=== PATIENT | male | born 1955 | race Caucasian/White ===

== ENCOUNTER 2017-10-04 07:07 | Inpatient (IN) | payer OTHER, MEDICARE ==
[2017-10-04 07:22] VITALS: BMI 23.7
--- NOTE | 2017-10-04 07:47 | C.PDOC ---
History Of Present Illness 62 y/o male with History of Right kidney transplant in [address] sent [address] ED [address] Dr[address] Zapata for evaluation of elevated creatinine. Patient had blood work on 10/01 and the creatinine tripled from 2.1 to 6.2, as per . As per , the patient has been very fatigue for 1 week and sleeping most of day and had x1 episode of vomiting last week. Patient has slightly decreased urine output, and patient denies abdominal pain or any other complaints at this time. PMH HTN, DM, CAD, CKD with Right renal transplant 2008. [place] is Dr. Zapata. Time Seen by Provider: 10/04/17 07:39 Chief Complaint (Nursing): Abnormal Labs History Per: Patient, Family History/Exam Limitations: no limitations Onset/Duration Of Symptoms: Days Current Symptoms Are (Timing): Still Present Past Medical History Reviewed: Historical Data, Nursing Documentation, Vital Signs Vital Signs: Last Vital Signs Temp 97.9 F 10/04/17 07:22 Pulse 71 10/04/17 07:53 Resp 20 10/04/17 07:53 BP 157/75 H 10/04/17 07:53 Pulse Ox 97 10/04/17 09:52 - Medical History PMH: CHF, Diabetes, Deep Vein Thrombosis (remote history of DVT to RLE and aterial clot to LLE), HTN, Chronic Kidney Disease Surgical History: Coronary Stent (2007) - [facility] Procedures ANGIOPLASTY OF OTHER NON-CORONARY VESSEL(S) (05/30/15) ATHERECTOMY OF OTHER NON-CORONARY VESSEL(S) (05/30/15) CONTRAST ARTERIOGRAM-LEG (06/17/14) DILATION OF L FEM ART WITH INTRALUM DEV, PERC APPROACH (03/10/16) DILATION OF R FEM ART WITH INTRALUM DEV, PERC APPROACH (05/21/16) EXTIRPATION OF MATTER FROM L EXT CAROTID, OPEN APPROACH (09/26/16) EXTIRPATION OF MATTER FROM L INT CAROTID, OPEN APPROACH (09/26/16) EXTIRPATION OF MATTER FROM L PERONEAL ART, PERC APPROACH (03/10/16) EXTIRPATION OF MATTER FROM L POPL ART, PERC APPROACH (03/10/16) EXTIRPATION OF MATTER FROM R FEM ART, PERC APPROACH (05/21/16) INSEJ [id number] PERIPHERAL NON-CORONARY VES STENT(S) (06/17/14) INSERTION OF ONE VASCULAR STENT (06/17/14) OTHER ENDOVASCULAR PROCEDURES ON OTHER VESSELS (06/17/14) PROCEDURE ON SINGLE VESSEL (05/30/15) Family History: States: No Known Family Hx - Social History Hx Tobacco Use: Yes Hx Alcohol Use: No Hx Substance Use: No - Immunization History Hx Tetanus Toxoid Vaccination: No Hx Influenza Vaccination: Yes Hx Pneumococcal Vaccination: Yes Review Of Systems Constitutional: Negative for: Fever, Chills Gastrointestinal: Positive for: Vomiting. Negative for: Abdominal Pain Skin: Negative for: Rash Neurological: Negative for: Weakness, Numbness Physical Exam - Physical Exam Appears: Chronically Ill Skin: Warm, Dry, No Rash, Other (surgical scar left neck) Head: Atraumatic, Normacephalic Eye(s): bilateral: Normal Inspection Oral Mucosa: Moist Neck: Supple Cardiovascular: Rhythm Regular Respiratory: Normal Breath Sounds, No Accessory Muscle Use, No Rales, No Rhonchi , No Wheezing Gastrointestinal/Abdominal: Soft, No Tenderness, No Guarding, No Rebound Extremity: Pedal Edema (Trace), Capillary Refill (<2 seconds), No Deformity Extremity: Bilateral: Normal ROM Neurological/Psych: Oriented x3 ED Course And Treatment - Laboratory Results Result Diagrams: 10/04/17 07:54 10/04/17 07:54 O2 Sat by Pulse Oximetry: 97 (RA) Pulse Ox Interpretation: Normal Medical Decision Making Medical Decision Making: Impression: Plan: Blood work, UA ordered Progress: [address]ata [phone] Dr Gonzalez calls ED, covering for Benny. Requests Transplant Kidney and bladder ultrasound. Will do consult Page Dr Warner Patient PCP does not admit here. They request Dr Warner [phone] Dr Warner calls back, he is out of town Dudley Chaudhary, of patient and she is now asking for Dr Justice to admit. [phone] Justice who accepts admission Disposition - Disposition Disposition: HOSPITALIZED Disposition Time: 09:52 Condition: FAIR - POA Present On Arrival: None - Clinical Impression Clinical Impression: Chronic renal disease, Creatinine elevation, H/O kidney transplant - PA / PROOF TECHNICIAN HELPER / Resident Statement MD/DO has reviewed & agrees with the documentation as recorded. - Scribe Statement The provider has reviewed the documentation as recorded by the Scribe Caden Patel All medical record entries made by the Scribe were at my direction and personally dictated by me. I have reviewed the chart and agree that the record accurately reflects my personal performance of the history, physical exam, medical decision making, and the department course for this patient. I have also personally directed, reviewed, and agree with the discharge instructions and disposition. Decision To Admit - Pt Status Changed To: Hospital Disposition Of: Observation - . Bed Request Type: Regular Admitting Physician: Jimenez Justice Patient Diagnosis: Chronic renal disease, Creatinine elevation
[2017-10-04 08:04] LABS: BASO # 0.1 K/uL (0.0-0.2); BASO % 1.3 % (0.0-2.0); EOS # 0.3 K/uL (0.0-0.7); EOS % 2.8 % (0.0-4.0); HEMOGLOBIN 13.3 g/dL (12.0-18.0); LYMPH # 1.5 K/uL (1.0-4.3); LYMPH % 14.8 % (20.0-40.0); MEAN CELL VOLUME 87.4 fL (80.0-94.0); MEAN CORPUSCULAR HEMOGLOBIN 30.2 pg (27.0-31.0); MEAN CORPUSCULAR HGB CONC 34.6 g/dL (33.0-37.0); MEAN PLATELET VOLUME 10.9 fL (7.2-11.7); MONO % 10.2 % (0.0-10.0); NEUT # 7.3 K/uL (1.8-7.0); NEUT % 70.9 % (50.0-75.0); NRBC % 0.1 % (0.0-2.0); RBC 4.4 Mil/uL (4.40-5.90); RED CELL DISTRIBUTION WIDTH 15.4 % (11.5-14.5); WHITE BLOOD COUNT 10.2 K/uL (4.8-10.8)
[2017-10-04 08:09] LABS: PROTHROMBIN TIME 11.8 SECONDS (9.7-12.2)
[2017-10-04 08:24] LABS: ALB/GLOB RATIO 0.8 (1.0-2.1); ALBUMIN 3.3 g/dL (3.5-5.0); CALCIUM 8.4 mg/dl (8.6-10.4)
[2017-10-04 09:11] LABS: URINE BACTERIA RARE (<OCC); URINE BILIRUBIN NEGATIVE (NEGATIVE); URINE BLOOD NEGATIVE (NEGATIVE); URINE CLARITY Clear (Clear); URINE COLOR Yellow (YELLOW); URINE GLUCOSE (UA) 3+ mg/dL (Normal); URINE LEUKOCYTE ESTERASE NEG Leu/uL (Negative); URINE NITRATE NEGATIVE (NEGATIVE); URINE PROTEIN 3+ mg/dL (NEGATIVE); URINE UROBILINOGEN NORMAL mg/dL (0.2-1.0)
--- NOTE | 2017-10-04 11:26 | US ---
PROCEDURE: Ultrasound of the Kidneys HISTORY: abnormal labs COMPARISON: None available. TECHNIQUE: Sonogram of the kidneys. FINDINGS: There is a right lower quadrant renal transplant. The transplant kidney measures 11.7 cm. There is mild diffuse cortical echogenicity. No hydronephrosis or nephrolithiasis. RIGHT KIDNEY: Measures: 7.2 cm. Small kidney with chronic parenchymal disease. LEFT KIDNEY: Measures: 7.3 cm. Small kidney with chronic parenchymal disease. OTHER FINDINGS: The urinary bladder is partially distended and grossly normal in appearance. The prevoid urinary volume is 166. 6 mL. IMPRESSION: Mild diffuse cortical echogenicity in the renal transplant which may represent underlying parenchymal disease. No hydronephrosis or nephrolithiasis. Clinical correlation and follow-up is advised.
--- NOTE | 2017-10-04 12:59 | CP.PCM.CON ---
History of Present Illness - History of Present Illness History of Present Illness: 62 yo male w/ hx of esrd never on hd, living related renal transplant 2009 from sister, no rejection episodes, baseline creatinine close to 3.0 mg d/l based on office chart. Was called into the hospital for elevated creatinine 6.0 mg/dl on routine labs. Pt c/o neuropathic pain in both legs, worse recently but otherwise denies any dysuria hematuria change in uop, leg swelling. was ill recently with "flu like symptoms". Compliant w/ meds. On myfortic 360 mg bid and prograf 4 mg bid PMHx/PSx esrd as above hypertension post tx DM pvd s/p b/l LE angioplasty carotid endarterectomy Neuropathy Allergies: None family hx: no kidney dz aunt w/ dm soc hx current smoker, reports quit etoh 8 months ago. denies drug use. disabled ros: as above no fevers chills sob cough chest pain dizziness palpitations rash [place] vomiting diarrhea weight loss change in appetite Review of Systems - Review of Systems All systems: reviewed and no additional remarkable complaints except (as per hpi ) Past Patient History - Infectious Disease Hx of Infectious Diseases: None - Past Medical History & Family History Past Medical History?: Yes - Past Social History Smoking Status: Former Smoker - CARDIAC Hx Congestive Heart Failure: Yes Hx Hypertension: Yes - PULMONARY Hx Respiratory Disorders: No Other/Comment: FORMER SMOKER - NEUROLOGICAL Hx Neurological Disorder: No - HEENT Hx HEENT Problems: Yes Hx Cataracts: Yes - RENAL Hx Chronic Kidney Disease: Yes - ENDOCRINE/METABOLIC Hx Endocrine Disorders: Yes Hx Diabetes Mellitus Type 2: Yes - HEMATOLOGICAL/ONCOLOGICAL Hx Blood Disorders: No - INTEGUMENTARY Hx Dermatological Problems: No - MUSCULOSKELETAL/RHEUMATOLOGICAL Hx Musculoskeletal Disorders: No Hx Falls: No - GASTROINTESTINAL Hx Gastrointestinal Disorders: Yes Hx Gastroesophageal Reflux: Yes - GENITOURINARY/GYNECOLOGICAL Hx Genitourinary Disorders: Yes (KIDNEY TRANSPLANT 2008) Other/Comment: NO HEMODIAYLIS. - PSYCHIATRIC Hx Substance Use: No - SURGICAL HISTORY Hx Coronary Stent: Yes (2007) - ANESTHESIA Hx Anesthesia: Yes Hx Anesthesia Reactions: No Hx Malignant Hyperthermia: No Meds Allergies/Adverse Reactions: Allergies Allergy/AdvReac Type Severity Reaction Status Date / Time No Known Allergies Allergy Verified 10/04/17 07:33 - Medications Medications: Current Medications Sodium Chloride (Sodium Chloride 0.9%) 1,000 mls @ 100 mls/hr IV .Q10H MICHAEL Mycophenolate Mofetil (Cellcept) 500 mg PO BID MICHAEL Tacrolimus (Prograf Cap) 4 mg PO Q12 MICHAEL Physical Exam - Constitutional Appears: Non-toxic, No Acute Distress, Cachectic - Head Exam Head Exam: NORMAL INSPECTION - Eye Exam Eye Exam: Normal appearance, PERRL Pupil Exam: NORMAL ACCOMODATION - ENT Exam ENT Exam: Mucous Membranes Moist, Normal Exam - Neck Exam Neck exam: Positive for: Normal Inspection - Respiratory Exam Respiratory Exam: NORMAL BREATHING PATTERN - Cardiovascular Exam Cardiovascular Exam: REGULAR RHYTHM, RRR - GI/Abdominal Exam GI & Abdominal Exam: Distended (no tenderness over transplant kidney), Normal Bowel Sounds, Soft - Extremities Exam Extremities exam: Positive for: normal inspection - Neurological Exam Neurological exam: Alert, CN II-XII Intact, Oriented x3 - Skin Skin Exam: Intact, Normal Color, Warm Results - Vital Signs Recent Vital Signs: Last Vital Signs Temp 97.5 F L 10/04/17 12:11 Pulse 75 10/04/17 12:11 Resp 20 10/04/17 12:11 BP 167/56 H 10/04/17 12:11 Pulse Ox 98 10/04/17 12:11 - Labs Result Diagrams: 10/04/17 07:54 10/04/17 07:54 Labs: Laboratory Results - last 24 hr 10/04/17 10/04/17 10/04/17 07:54 07:54 07:54 WBC 10.2 RBC 4.40 Hgb 13.3 Hct 38.5 MCV 87.4 MCH 30.2 MCHC 34.6 RDW 15.4 H Plt Count 157 MPV 10.9 Neut % (Auto) 70.9 Lymph % (Auto) 14.8 L [place] % (Auto) 10.2 H Eos % (Auto) 2.8 Baso % (Auto) 1.3 Neut # 7.3 H Lymph # 1.5 [place] # 1.0 H Eos # 0.3 Baso # 0.1 PT 11.8 INR 1.0 APTT 38 H Sodium 126 L Potassium 4.9 Chloride 97 L Carbon Dioxide 18 L Anion Gap 16 BUN 81 H Creatinine 6.0 H Est GFR ( Amer) 12 Est GFR (Non-Af Amer) 10 Random Glucose 362 H Calcium 8.4 L Total Bilirubin 0.5 AST 9 L ALT 15 L D Alkaline Phosphatase 46 Total Creatine Kinase 45 L NT-Pro-B Natriuret Pep 9130 H Total Protein 7.2 Albumin 3.3 L Globulin 4.0 H Albumin/Globulin Ratio 0.8 L Urine Color Urine Clarity Urine pH Ur Specific [place] Urine Protein Urine Glucose (UA) Urine Ketones Urine Blood Urine Nitrate Urine Bilirubin Urine Urobilinogen Ur Leukocyte Esterase Urine WBC (Auto) Urine RBC (Auto) Urine Bacteria 10/04/17 09:03 WBC RBC Hgb Hct MCV MCH MCHC RDW Plt Count MPV Neut % (Auto) Lymph % (Auto) [place] % (Auto) Eos % (Auto) Baso % (Auto) Neut # Lymph # [place] # Eos # Baso # PT INR APTT Sodium Potassium Chloride Carbon Dioxide Anion Gap BUN Creatinine Est GFR ( Amer) Est GFR (Non-Af Amer) Random Glucose Calcium Total Bilirubin AST ALT Alkaline Phosphatase Total Creatine Kinase NT-Pro-B Natriuret Pep Total Protein Albumin Globulin Albumin/Globulin Ratio Urine Color Yellow Urine Clarity Clear Urine pH 5.0 Ur Specific [place] 1.012 Urine Protein 3+ H Urine Glucose (UA) 3+ H Urine Ketones Negative Urine Blood Negative Urine Nitrate Negative Urine Bilirubin Negative Urine Urobilinogen Normal Ur Leukocyte Esterase Neg Urine WBC (Auto) 4 Urine RBC (Auto) 1 Urine Bacteria Rare Assessment & Plan (1) Creatinine elevation Status: Acute (2) Chronic renal disease Status: Chronic (3) History of renal transplant Status: Chronic (4) GASTON (acute kidney injury) Status: Acute (5) Atherosclerotic PVD with intermittent claudication Status: Acute (6) History of CEA (carotid endarterectomy) Status: Acute (7) Leg pain, diffuse Status: Acute (8) Uncontrolled hypertension Status: Acute - Assessment and Plan (Free Text) Assessment: # progresion of ckd / gaston # renal transplant, baseline creat 3.0 mg/dl # hyponatremia # met acidosis # dm # htn plan: maintain transplant meds consented for hd, treatment tomorrow after catheter placement, Dr Garrido iv fluids- NS consider transplant biopsy check complements hiv hepatitis ua home meds for htn, no ACEI/ARB/diuretics po sodium bicarb
[2017-10-04] MEDS: Sodium Chloride 0.9% 1,000 ML IV SCH ×2 (13:51→22:59)
[2017-10-04 14:43] LABS: COMPLEMENT C4 28.1 mg/dL (14.0-44.0)
[2017-10-04 15:08] LABS: HEPATITIS B SURFACE AG NEGATIVE (NEGATIVE)
[2017-10-04 15:13] LABS: HEPATITIS B CORE AB Negative (NEGATIVE)
--- NOTE | 2017-10-04 15:31 | CP.PCM.CON ---
History of Present Illness - History of Present Illness History of Present Illness: Surgery Consult note. Dr. Garrido 62yo M with PMHx of of Kidney Transplant in 2008, HTN, DM, CHF, PVD here for evaluation of elevated creatinine. Surgery consulted for placement of dialysis access catheter. States that he still makes urine. Had general bloodwork drawn on 10/01 and was requested to come in to the ER for further evaluation when his creatinine was noted to increase to 6.2, from 2.0. Patient denies any complaints. No dysuria, no hematuria, no leg swelling. No CP/SOB. Residential Program Director - Dr. Zapata PMHx: HTN, DM, CHF, PVD PSHx: Kidney Transplant 2008, Left Carotid Endarterectomy, Coronary stent, R leg angioplasty w/stent, Left leg angioplasty w/stent Social Hx: Current tobacco use, Denies ETOH, Denies drugs NKDA Review of Systems - Review of Systems All systems: reviewed and no additional remarkable complaints except - Constitutional Constitutional: absent: Chills, Fever - Cardiovascular Cardiovascular: absent: Chest Pain, Diaphoresis, Dyspnea - Respiratory Respiratory: absent: Dyspnea - Genitourinary Genitourinary: absent: Difficulty Urinating, Dysuria Past Patient History - Infectious Disease Hx of Infectious Diseases: None - Past Medical History & Family History Past Medical History?: Yes - Past Social History Smoking Status: Former Smoker - CARDIAC Hx Congestive Heart Failure: Yes Hx Hypertension: Yes - PULMONARY Hx Respiratory Disorders: No Other/Comment: FORMER SMOKER - NEUROLOGICAL Hx Neurological Disorder: No - HEENT Hx HEENT Problems: Yes Hx Cataracts: Yes - RENAL Hx Chronic Kidney Disease: Yes - ENDOCRINE/METABOLIC Hx Endocrine Disorders: Yes Hx Diabetes Mellitus Type 2: Yes - HEMATOLOGICAL/ONCOLOGICAL Hx Blood Disorders: No - INTEGUMENTARY Hx Dermatological Problems: No - MUSCULOSKELETAL/RHEUMATOLOGICAL Hx Musculoskeletal Disorders: No Hx Falls: No - GASTROINTESTINAL Hx Gastrointestinal Disorders: Yes Hx Gastroesophageal Reflux: Yes - GENITOURINARY/GYNECOLOGICAL Hx Genitourinary Disorders: Yes (KIDNEY TRANSPLANT 2008) Other/Comment: NO HEMODIAYLIS. - PSYCHIATRIC Hx Substance Use: No - SURGICAL HISTORY Hx Coronary Stent: Yes (2007) - ANESTHESIA Hx Anesthesia: Yes Hx Anesthesia Reactions: No Hx Malignant Hyperthermia: No Meds Allergies/Adverse Reactions: Allergies Allergy/AdvReac Type Severity Reaction Status Date / Time No Known Allergies Allergy Verified 10/04/17 07:33 - Medications Medications: Current Medications Alprazolam (Xanax) 1 mg PO PRN PRN PRN Reason: Anxiety Amlodipine Besylate (Norvasc) 10 mg PO DAILY [facility] Clopidogrel Bisulfate (Plavix) 75 mg PO DAILY MICHAEL Famotidine (Pepcid) 20 mg PO BID [facility] Gabapentin (Neurontin) 100 mg PO TID [facility] Hydralazine HCl (Apresoline) 50 mg PO BID [facility] Sodium Chloride (Sodium Chloride 0.9%) 1,000 mls @ 100 mls/hr IV .Q10H [facility] Last Admin: 10/04/17 13:51 Dose: 100 mls/hr Insulin Glargine (Lantus) 30 unit SC HS [facility] Insulin Human Regular (Novolin R) 0 unit SC ACHS MICHAEL PRN Reason: Protocol Labetalol HCl (Trandate) 100 mg PO Q8 [facility] Metoprolol Tartrate (Lopressor) 50 mg PO BID [facility] Mycophenolate Mofetil (Cellcept) 500 mg PO BID [facility] Sodium Bicarbonate (Sodium Bicarbonate Tab) 650 mg PO BID [facility] Tacrolimus (Prograf Cap) 4 mg PO DAILY [facility] Tacrolimus (Prograf Cap) 4 mg PO HS MICHAEL Zolpidem Tartrate (Ambien) 5 mg PO HS [facility] Physical Exam - Constitutional Appears: Well, Non-toxic, No Acute Distress - Head Exam Head Exam: ATRAUMATIC, NORMAL INSPECTION, NORMOCEPHALIC - Eye Exam Eye Exam: EOMI - ENT Exam ENT Exam: Mucous Membranes Moist - Neck Exam Neck exam: Positive for: Full Rom. Negative for: Lymphadenopathy - Respiratory Exam Respiratory Exam: NORMAL BREATHING PATTERN. absent: Accessory Muscle Use, Respiratory Distress - Cardiovascular Exam Cardiovascular Exam: absent: JVD - GI/Abdominal Exam GI & Abdominal Exam: Soft. absent: Firm, Guarding, Rigid, Tenderness - Extremities Exam Extremities exam: Positive for: normal inspection. Negative for: calf tenderness - Neurological Exam Neurological exam: Alert, Oriented x3 Results - Vital Signs Recent Vital Signs: Last Vital Signs Temp 97.5 F L 10/04/17 12:11 Pulse 75 10/04/17 12:11 Resp 20 10/04/17 12:11 BP 167/56 H 10/04/17 12:11 Pulse Ox 97 10/04/17 13:19 - Labs Result Diagrams: 10/04/17 07:54 10/04/17 07:54 Labs: Laboratory Results - last 24 hr 10/04/17 10/04/17 10/04/17 07:54 07:54 07:54 WBC 10.2 RBC 4.40 Hgb 13.3 Hct 38.5 MCV 87.4 MCH 30.2 MCHC 34.6 RDW 15.4 H Plt Count 157 MPV 10.9 Neut % (Auto) 70.9 Lymph % (Auto) 14.8 L [place] % (Auto) 10.2 H Eos % (Auto) 2.8 Baso % (Auto) 1.3 Neut # 7.3 H Lymph # 1.5 [place] # 1.0 H Eos # 0.3 Baso # 0.1 PT 11.8 INR 1.0 APTT 38 H Sodium 126 L Potassium 4.9 Chloride 97 L Carbon Dioxide 18 L Anion Gap 16 BUN 81 H Creatinine 6.0 H Est GFR ( Amer) 12 Est GFR (Non-Af Amer) 10 Random Glucose 362 H Calcium 8.4 L Phosphorus Total Bilirubin 0.5 AST 9 L ALT 15 L D Alkaline Phosphatase 46 Total Creatine Kinase 45 L NT-Pro-B Natriuret Pep 9130 H Total Protein 7.2 Albumin 3.3 L Globulin 4.0 H Albumin/Globulin Ratio 0.8 L Urine Color Urine Clarity Urine pH Ur Specific [place] Urine Protein Urine Glucose (UA) Urine Ketones Urine Blood Urine Nitrate Urine Bilirubin Urine Urobilinogen Ur Leukocyte Esterase Urine WBC (Auto) Urine RBC (Auto) Urine Bacteria Complement C3 Complement C4 Hep Bs Antigen Hep B Core IgM Ab 10/04/17 10/04/17 10/04/17 09:03 14:17 14:17 WBC RBC Hgb Hct MCV MCH MCHC RDW Plt Count MPV Neut % (Auto) Lymph % (Auto) [place] % (Auto) Eos % (Auto) Baso % (Auto) Neut # Lymph # [place] # Eos # Baso # PT INR APTT Sodium Potassium Chloride Carbon Dioxide Anion Gap BUN Creatinine Est GFR ( Amer) Est GFR (Non-Af Amer) Random Glucose Calcium Phosphorus Total Bilirubin AST ALT Alkaline Phosphatase Total Creatine Kinase NT-Pro-B Natriuret Pep Total Protein Albumin Globulin Albumin/Globulin Ratio Urine Color Yellow Urine Clarity Clear Urine pH 5.0 Ur Specific [place] 1.012 Urine Protein 3+ H Urine Glucose (UA) 3+ H Urine Ketones Negative Urine Blood Negative Urine Nitrate Negative Urine Bilirubin Negative Urine Urobilinogen Normal Ur Leukocyte Esterase Neg Urine WBC (Auto) 4 Urine RBC (Auto) 1 Urine Bacteria Rare Complement C3 98.0 Complement C4 28.1 Hep Bs Antigen Negative Hep B Core IgM Ab Negative 10/04/17 14:17 WBC RBC Hgb Hct MCV MCH MCHC RDW Plt Count MPV Neut % (Auto) Lymph % (Auto) [place] % (Auto) Eos % (Auto) Baso % (Auto) Neut # Lymph # [place] # Eos # Baso # PT INR APTT Sodium Potassium Chloride Carbon Dioxide Anion Gap BUN Creatinine Est GFR ( Amer) Est GFR (Non-Af Amer) Random Glucose Calcium Phosphorus 5.7 H Total Bilirubin AST ALT Alkaline Phosphatase Total Creatine Kinase NT-Pro-B Natriuret Pep Total Protein Albumin Globulin Albumin/Globulin Ratio Urine Color Urine Clarity Urine pH Ur Specific [place] Urine Protein Urine Glucose (UA) Urine Ketones Urine Blood Urine Nitrate Urine Bilirubin Urine Urobilinogen Ur Leukocyte Esterase Urine WBC (Auto) Urine RBC (Auto) Urine Bacteria Complement C3 Complement C4 Hep Bs Antigen Hep B Core IgM Ab Assessment & Plan - Assessment and Plan (Free Text) Assessment: 62yo M with ESRD. Surgery consulted for dialysis access - To OR tomorrow, 10/05 - NPO past mn, 10/04 - Continue current management as per Primary and Nephrology team Further recs as per Dr. Radhika Blanc PGY1 surgery pager: [phone]
[2017-10-04 15:40] LABS: HEPATITIS C ANTIBODY Negative (NEGATIVE)
[2017-10-04] MEDS: (Novolin R) Insulin Human Regular 100 units/ml vial SC SCH ×2 (19:14→22:56)
[2017-10-04] MEDS ORDERED: (Lantus) Insulin Glargine, Recombinant SC SCH (22:00)
[2017-10-04] MEDS: (Lantus) Insulin Glargine, Recombinant SC SCH (22:56)
[2017-10-04] MEDS: MYFORTIC 180MG PO SCH (22:56)
[2017-10-04] MEDS ORDERED: Oxycodone/Acetaminophen 5/325 mg Tab PO ONE (23:59)
[2017-10-05 07:21] LABS: HEMOGLOBIN 12.6 g/dL (12.0-18.0); MEAN CELL VOLUME 86.7 fL (80.0-94.0); MEAN CORPUSCULAR HEMOGLOBIN 30.5 pg (27.0-31.0); MEAN CORPUSCULAR HGB CONC 35.2 g/dL (33.0-37.0); MEAN PLATELET VOLUME 10.7 fL (7.2-11.7); RBC 4.14 Mil/uL (4.40-5.90); RED CELL DISTRIBUTION WIDTH 15.3 % (11.5-14.5)
[2017-10-05] MEDS: (Novolin R) Insulin Human Regular 100 units/ml vial SC SCH ×4 (08:00→21:34)
[2017-10-05] MEDS ORDERED: Lidocaine 1% Inj (20ml) ONE (08:00)
[2017-10-05] MEDS ORDERED: HEPARIN-NS 5,000 UNITS/500 ML 5,000 UNIT/500 ML BAG IV ONE (08:00)
[2017-10-05 08:15] LABS: CALCIUM 8.2 mg/dl (8.6-10.4); MAGNESIUM 1.4 mg/dL (1.6-2.3)
[2017-10-05] MEDS ORDERED: Sodium Chloride 0.9% 1,000 ML IV ONE (09:20)
[2017-10-05] MEDS ORDERED: Propofol 10 mg/ml Inj (20 ML) ONE ×2 (09:23→09:54)
[2017-10-05] MEDS ORDERED: Midazolam 2 MG/2 ML VIAL ONE (09:23)
--- NOTE | 2017-10-05 09:27 | RAD ---
HISTORY: pre-op COMPARISON: 05/21/2016. FINDINGS: LUNGS: The lungs are well inflated and clear. PLEURA: No significant pleural effusion identified, no pneumothorax apparent. CARDIOVASCULAR: Normal. OSSEOUS STRUCTURES: No significant abnormalities. VISUALIZED UPPER ABDOMEN: Normal. OTHER FINDINGS: None. IMPRESSION: No active pulmonary disease.
[2017-10-05] MEDS ORDERED: ceFAZolin IV 1 gm in Dextrose 1 GM/50 ML BAG IVPB ONE (09:35)
[2017-10-05] MEDS: MYFORTIC 180MG PO SCH ×2 (10:10→20:57)
[2017-10-05] MEDS: Pantoprazole 40 mg EC Tab PO SCH (10:11)
--- NOTE | 2017-10-05 10:23 | PCM.SURG1 ---
Surgeon's Initial Post Op Note - Surgeon's Notes Surgeon: Isidro Garrido MD Steel Pourer Helper: Bobbi Leach PGY-1 Type of Anesthesia: IV Sedation Pre-Operative Diagnosis: Need for Hemodylasis due to ESRD Operative Findings: See op report Post-Operative Diagnosis: ESRD requiring HD Operation Performed: Right IJ tunneled hemodylasis catheter placement Specimen/Specimens Removed: None Estimated Blood Loss: EBL {In ML}: 10 Blood Products Given: N/A Drains Used: No Drains Post-Op Condition: Good Date of Surgery/Procedure: 10/05/17 Time of Surgery/Procedure: 10:23
--- NOTE | 2017-10-05 10:45 | CP.PCM.PN ---
Subjective - Date & Time of Evaluation Date of Evaluation: 10/05/17 Time of Evaluation: 10:43 - Subjective Subjective: Notes reviewed Out of OR for permacath Feels ok No pain at surgical site No mack or vision changes Reports nausea vomiting and diarrhea Reports use of nsaids in recent past Ready for dialysis Objective - Vital Signs/Intake and Output Vital Signs (last 24 hours): Temp Pulse Resp BP Pulse Ox 97.4 F L 64 64 H 145/74 99 10/05/17 10:18 10/05/17 10:30 10/05/17 10:30 10/05/17 10:30 10/05/17 10:30 Intake and Output: 10/05/17 10/05/17 06:59 18:59 Intake Total 50 Balance 50 - Medications Medications: Current Medications Alprazolam (Xanax) 1 mg PO HS PRN PRN Reason: Anxiety Amlodipine Besylate (Norvasc) 5 mg PO BID [facility] Last Admin: 10/05/17 10:10 Dose: Not Given Clopidogrel Bisulfate (Plavix) 75 mg PO DAILY [facility] Last Admin: 10/05/17 10:11 Dose: Not Given Gabapentin (Neurontin) 100 mg PO TID [facility] Last Admin: 10/05/17 10:10 Dose: Not Given Home Med (Home Med) 1 unit PO Q12H [facility] Last Admin: 10/05/17 10:10 Dose: Not Given Hydromorphone HCl (Dilaudid) 0.5 mg IVP Q5M PRN PRN Reason: Pain, moderate (4-7) Stop: 10/05/17 12:21 Sodium Chloride (Sodium Chloride 0.9%) 1,000 mls @ 100 mls/hr IV .Q10H [facility] Last Admin: 10/04/17 22:59 Dose: 100 mls/hr Insulin Glargine (Lantus) 20 unit SC HS [facility] Last Admin: 10/04/17 22:56 Dose: Not Given Insulin Human Regular (Novolin R) 0 unit SC ACHS [facility] PRN Reason: Protocol Last Admin: 10/05/17 08:00 Dose: Not Given Metoprolol Tartrate (Lopressor) 50 mg PO BID [facility] Last Admin: 10/05/17 10:10 Dose: Not Given Ondansetron HCl (Zofran Inj) 4 mg IVP ONCE PRN PRN Reason: Nausea/Vomiting Stop: 12/23/17 12:21 Oxycodone/Acetaminophen (Percocet 5/325 Mg Tab) 1 tab PO Q6H PRN PRN Reason: Pain, severe (8-10) Stop: 10/08/17 10:27 Pantoprazole Sodium (Protonix Ec Tab) 40 mg PO DAILY [facility] Last Admin: 10/05/17 10:11 Dose: Not Given Sodium Bicarbonate (Sodium Bicarbonate Tab) 650 mg PO BID [facility] Last Admin: 10/05/17 10:11 Dose: Not Given Tacrolimus (Prograf Cap) 4 mg PO DAILY [facility] Last Admin: 10/05/17 10:11 Dose: Not Given Tacrolimus (Prograf Cap) 4 mg PO HS [facility] Last Admin: 10/04/17 22:57 Dose: 4 mg Tramadol HCl (Ultram) 50 mg PO TID PRN PRN Reason: Pain, moderate (4-7) Zolpidem Tartrate (Ambien) 5 mg PO HS [facility] Last Admin: 10/04/17 22:56 Dose: 5 mg - Labs Labs: 10/05/17 07:16 10/05/17 07:16 PT 11.8 SECONDS (9.7-12.2) 10/04/17 07:54 INR 1.0 10/04/17 07:54 APTT 38 SECONDS (21-34) H 10/04/17 07:54 - Constitutional Appears: Well, Non-toxic - Head Exam Head Exam: ATRAUMATIC, NORMAL INSPECTION - Eye Exam Eye Exam: EOMI, Normal appearance - ENT Exam ENT Exam: Mucous Membranes Moist, Normal Oropharynx - Neck Exam Neck Exam: absent: Lymphadenopathy, Thyromegaly - Respiratory Exam Respiratory Exam: Clear to Ausculation Bilateral. absent: Rales, Rhonchi - Cardiovascular Exam Cardiovascular Exam: +S1, +S2. absent: Rubs - GI/Abdominal Exam GI & Abdominal Exam: Soft, Normal Bowel Sounds Additional comments: No allograft tenderness - Extremities Exam Extremities Exam: absent: Pedal Edema, Tenderness - Neurological Exam Neurological Exam: Alert, Awake, Oriented x3 - Psychiatric Exam Psychiatric exam: Normal Affect, Normal Mood - Skin Skin Exam: Dry, Warm Assessment and Plan - Assessment and Plan (Free Text) Assessment: # Hyponatremia # progresion of ckd / mary # renal transplant, baseline creat 3.0 mg/dl # hyponatremia # met acidosis # dm # htn S/p permacath placement No improvement in renal function over past 24 hours Dialysis today - short treatment Maintain immunosuppression Bp meds as ordered Control glucose Will need ANTONY creation if no improvement in renal function
--- NOTE | 2017-10-05 11:01 | RAD ---
PROCEDURE: CHEST RADIOGRAPH, 1 VIEW HISTORY: post op HD catheter placement COMPARISON: 10/05/2017. FINDINGS: The right-sided dialysis catheter terminates in the right atrium. LUNGS: The lungs are well inflated. There is worsening pulmonary venous congestion. No focal consolidation. PLEURA: No pneumothorax or pleural fluid seen. CARDIOVASCULAR: Normal. OSSEOUS STRUCTURES: No significant abnormalities. VISUALIZED UPPER ABDOMEN: Normal. OTHER FINDINGS: None. IMPRESSION: Right-sided dialysis catheter terminates in the right atrium. Worsening pulmonary venous congestion.
--- NOTE | 2017-10-05 15:33 | CP.PCM.PN ---
Subjective - Date & Time of Evaluation Date of Evaluation: 10/05/17 Time of Evaluation: 15:32 - Subjective Subjective: Patient today underwent the hemolysis catheter. History hematemesis. Spoke to the surgeon, and a rotary shear worker helper. Continue to monitor. Labs. We'll follow the patient. Objective - Vital Signs/Intake and Output Vital Signs (last 24 hours): Temp Pulse Resp BP Pulse Ox 97.3 F L 80 15 178/90 H 68 L 10/05/17 13:20 10/05/17 15:15 10/05/17 13:20 10/05/17 15:15 10/05/17 11:18 Intake and Output: 10/05/17 10/05/17 06:59 18:59 Intake Total 50 Balance 50 - Medications Medications: Current Medications Alprazolam (Xanax) 1 mg PO HS PRN PRN Reason: Anxiety Amlodipine Besylate (Norvasc) 5 mg PO BID [facility] Last Admin: 10/05/17 10:10 Dose: Not Given Clopidogrel Bisulfate (Plavix) 75 mg PO DAILY [facility] Last Admin: 10/05/17 10:11 Dose: Not Given Gabapentin (Neurontin) 100 mg PO TID [facility] Last Admin: 10/05/17 15:01 Dose: Not Given Home Med (Home Med) 1 unit PO Q12H [facility] Last Admin: 10/05/17 10:10 Dose: Not Given Sodium Chloride (Sodium Chloride 0.9%) 1,000 mls @ 100 mls/hr IV .Q10H [facility] Last Admin: 10/04/17 22:59 Dose: 100 mls/hr Insulin Glargine (Lantus) 20 unit SC HS [facility] Last Admin: 10/04/17 22:56 Dose: Not Given Insulin Human Regular (Novolin R) 0 unit SC ACHS [facility] PRN Reason: Protocol Last Admin: 10/05/17 12:01 Dose: 3 unit Metoprolol Tartrate (Lopressor) 50 mg PO BID [facility] Last Admin: 10/05/17 10:10 Dose: Not Given Oxycodone/Acetaminophen (Percocet 5/325 Mg Tab) 1 tab PO Q6H PRN PRN Reason: Pain, severe (8-10) Stop: 10/08/17 10:27 Pantoprazole Sodium (Protonix Ec Tab) 40 mg PO DAILY [facility] Last Admin: 10/05/17 10:11 Dose: Not Given Sodium Bicarbonate (Sodium Bicarbonate Tab) 650 mg PO BID [facility] Last Admin: 10/05/17 10:11 Dose: Not Given Tacrolimus (Prograf Cap) 4 mg PO DAILY [facility] Last Admin: 10/05/17 10:11 Dose: Not Given Tacrolimus (Prograf Cap) 4 mg PO HS [facility] Last Admin: 10/04/17 22:57 Dose: 4 mg Tramadol HCl (Ultram) 50 mg PO TID PRN PRN Reason: Pain, moderate (4-7) Zolpidem Tartrate (Ambien) 5 mg PO HS [facility] Last Admin: 10/04/17 22:56 Dose: 5 mg - Labs Labs: 10/05/17 07:16 10/05/17 07:16 PT 11.8 SECONDS (9.7-12.2) 10/04/17 07:54 INR 1.0 10/04/17 07:54 APTT 38 SECONDS (21-34) H 10/04/17 07:54
[2017-10-05] MEDS: Oxycodone/Acetaminophen 5/325 mg Tab PO PRN ×2 (15:59→22:18)
[2017-10-05] MEDS: Sodium Chloride 0.9% 1,000 ML IV SCH (19:00)
--- NOTE | 2017-10-05 21:02 | OP ---
PROCEDURE DATE: 10/05/2017 PREOPERATIVE DIAGNOSIS: Renal failure. POSTOPERATIVE DIAGNOSIS: Renal failure. PROCEDURE: PermCath, right jugular vein with C-arm fluoroscopy, ultrasound-guided puncture, micropuncture technique. SURGEON: Isidro Garrido Jr., MD. NURSE SITTER: None. ANESTHESIOLOGIST: Zoë Carrillo MD. INDICATIONS: The patient is a 62-year-old man with renal insufficiency, history of kidney transplant, now presenting with elevated BUN and creatinine, requiring dialysis. OPERATIVE FINDINGS: Catheter was inserted uneventfully via the right jugular vein. DESCRIPTION OF PROCEDURE: The patient was given local anesthesia. Using ultrasound guidance and micropuncture technique, the right jugular vein was cannulated. Under fluoroscopic control, the guidewire was advanced centrally. A sheath dilator was passed over this. Catheter was then tunneled onto the right chest wall, brought out in position with the tip in superior vena cava-right atrial junction. It was flushed with heparinized saline with good return and good flow. Secured to the skin with sutures. Ultrasound images of the neck showed the vein was 13 mm in diameter with normal compressibility and no intraluminal thrombosis. Isidro Garrido Jr., MD
[2017-10-05] MEDS: (Lantus) Insulin Glargine, Recombinant SC SCH (22:21)
[2017-10-06] MEDS: Sodium Chloride 0.9% 1,000 ML IV SCH ×2 (05:00→15:34)
--- NOTE | 2017-10-06 07:52 | CP.PCM.PN ---
Subjective - Date & Time of Evaluation Date of Evaluation: 10/06/17 Time of Evaluation: 07:51 - Subjective Subjective: Vasc Sx: Dr Garrido Pt S&E. POD#1 s/p permacath placment. Pt dialyzed yesterday. Vein mapping ordered for AVF planning, likely will not be done until after holiday. Continue LUE precautions pt should be optimized for AVF placement planning next week will d/w Dr Radhika Aldridge, PGY3 Objective - Vital Signs/Intake and Output Vital Signs (last 24 hours): Temp Pulse Resp BP Pulse Ox 98.3 F 73 20 170/72 H 95 10/06/17 06:22 10/06/17 06:22 10/05/17 23:45 10/06/17 06:22 10/05/17 23:45 - Medications Medications: Current Medications Alprazolam (Xanax) 1 mg PO HS PRN PRN Reason: Anxiety Amlodipine Besylate (Norvasc) 5 mg PO BID [facility] Last Admin: 10/05/17 17:23 Dose: 5 mg Clopidogrel Bisulfate (Plavix) 75 mg PO DAILY [facility] Last Admin: 10/05/17 10:11 Dose: Not Given Gabapentin (Neurontin) 100 mg PO TID [facility] Last Admin: 10/05/17 17:23 Dose: 100 mg Home Med (Home Med) 1 unit PO Q12H [facility] Last Admin: 10/05/17 20:57 Dose: Not Given Sodium Chloride (Sodium Chloride 0.9%) 1,000 mls @ 100 mls/hr IV .Q10H [facility] Last Admin: 10/05/17 19:00 Dose: Not Given Insulin Glargine (Lantus) 20 unit SC HS [facility] Last Admin: 10/05/17 22:21 Dose: 20 unit Insulin Human Regular (Novolin R) 0 unit SC ACHS [facility] PRN Reason: Protocol Last Admin: 10/05/17 21:34 Dose: Not Given Metoprolol Tartrate (Lopressor) 50 mg PO BID [facility] Last Admin: 10/05/17 17:25 Dose: 50 mg Mycophenolate Mofetil (Cellcept Cap) 250 mg PO BID [facility] Last Admin: 10/05/17 21:37 Dose: 250 mg Oxycodone/Acetaminophen (Percocet 5/325 Mg Tab) 1 tab PO Q6H PRN PRN Reason: Pain, severe (8-10) Stop: 10/08/17 10:27 Last Admin: 10/05/17 22:18 Dose: 1 tab Pantoprazole Sodium (Protonix Ec Tab) 40 mg PO DAILY [facility] Last Admin: 10/05/17 10:11 Dose: Not Given Sodium Bicarbonate (Sodium Bicarbonate Tab) 650 mg PO BID [facility] Last Admin: 10/05/17 17:21 Dose: 650 mg Tacrolimus (Prograf Cap) 4 mg PO DAILY [facility] Last Admin: 10/05/17 10:11 Dose: Not Given Tacrolimus (Prograf Cap) 4 mg PO HS [facility] Last Admin: 10/05/17 21:42 Dose: 4 mg Tramadol HCl (Ultram) 50 mg PO TID PRN PRN Reason: Pain, moderate (4-7) Zolpidem Tartrate (Ambien) 5 mg PO HS [facility] Last Admin: 10/05/17 22:12 Dose: Not Given - Labs Labs: 10/05/17 07:16 10/05/17 07:16 PT 11.8 SECONDS (9.7-12.2) 10/04/17 07:54 INR 1.0 10/04/17 07:54 APTT 38 SECONDS (21-34) H 10/04/17 07:54
[2017-10-06 07:56] LABS: BASO # 0.1 K/uL (0.0-0.2); BASO % 0.6 % (0.0-2.0); EOS # 0.3 K/uL (0.0-0.7); EOS % 3.3 % (0.0-4.0); HEMOGLOBIN 12.5 g/dL (12.0-18.0); LYMPH # 1.7 K/uL (1.0-4.3); LYMPH % 18.9 % (20.0-40.0); MEAN CELL VOLUME 85.5 fL (80.0-94.0); MEAN CORPUSCULAR HEMOGLOBIN 29.8 pg (27.0-31.0); MEAN CORPUSCULAR HGB CONC 34.9 g/dL (33.0-37.0); MONO # 0.9 K/uL (0.0-0.8); NEUT # 5.9 K/uL (1.8-7.0); NEUT % 67.2 % (50.0-75.0); NRBC % 0.1 % (0.0-2.0); RBC 4.21 Mil/uL (4.40-5.90); RED CELL DISTRIBUTION WIDTH 15.4 % (11.5-14.5); WHITE BLOOD COUNT 8.8 K/uL (4.8-10.8)
[2017-10-06 08:26] LABS: CALCIUM 8.1 mg/dl (8.6-10.4)
[2017-10-06] MEDS: (Novolin R) Insulin Human Regular 100 units/ml vial SC SCH ×4 (08:30→22:23)
[2017-10-06] MEDS: Pantoprazole 40 mg EC Tab PO SCH (10:54)
[2017-10-06] MEDS ORDERED: Home Med 1 UNIT PO SCH (22:00)
[2017-10-06] MEDS: (Lantus) Insulin Glargine, Recombinant SC SCH (22:24)
[2017-10-07] MEDS: Sodium Chloride 0.9% 1,000 ML IV SCH ×3 (01:00→22:04)
--- NOTE | 2017-10-07 05:19 | CP.PCM.PN ---
Subjective - Date & Time of Evaluation Date of Evaluation: 10/07/17 Time of Evaluation: 05:15 - Subjective Subjective: Vasc Sx: Dr Garrido Pt S&E. Condition unchanged. NAEO. Resting. No complaints. Vein mapping ordered, will likely be done saturday. Pt will need optimization/risk stratification prior to any procedure Objective - Vital Signs/Intake and Output Vital Signs (last 24 hours): Temp Pulse Resp BP Pulse Ox 98.4 F 73 18 151/67 H 95 10/07/17 04:41 10/07/17 04:41 10/07/17 04:41 10/07/17 04:41 10/07/17 04:41 Intake and Output: 10/06/17 10/07/17 18:59 06:59 Intake Total 360 Balance 360 - Medications Medications: Current Medications Alprazolam (Xanax) 1 mg PO DAILY PRN PRN Reason: Anxiety Last Admin: 10/06/17 12:46 Dose: 1 mg Amlodipine Besylate (Norvasc) 5 mg PO BID [facility] Last Admin: 10/06/17 18:00 Dose: 5 mg Clopidogrel Bisulfate (Plavix) 75 mg PO DAILY [facility] Last Admin: 10/06/17 10:53 Dose: 75 mg Gabapentin (Neurontin) 100 mg PO TID [facility] Last Admin: 10/06/17 18:01 Dose: 100 mg Home Med (Patient's Own Medication) 0.5 tab PO Q12 [facility] Last Admin: 10/06/17 22:17 Dose: 0.5 tab Sodium Chloride (Sodium Chloride 0.9%) 1,000 mls @ 100 mls/hr IV .Q10H [facility] Last Admin: 10/06/17 15:34 Dose: Not Given Insulin Glargine (Lantus) 20 unit SC HS [facility] Last Admin: 10/06/17 22:24 Dose: 20 unit Insulin Human Regular (Novolin R) 0 unit SC ACHS [facility] PRN Reason: Protocol Last Admin: 10/06/17 22:23 Dose: 2 unit Metoprolol Tartrate (Lopressor) 50 mg PO BID [facility] Last Admin: 10/06/17 22:16 Dose: 50 mg Oxycodone/Acetaminophen (Percocet 5/325 Mg Tab) 1 tab PO Q6H PRN PRN Reason: Pain, severe (8-10) Stop: 10/08/17 10:27 Last Admin: 10/05/17 22:18 Dose: 1 tab Pantoprazole Sodium (Protonix Ec Tab) 40 mg PO DAILY [facility] Last Admin: 10/06/17 10:54 Dose: 40 mg Sodium Bicarbonate (Sodium Bicarbonate Tab) 650 mg PO BID [facility] Last Admin: 10/06/17 18:00 Dose: 650 mg Tacrolimus (Prograf Cap) 4 mg PO DAILY [facility] Last Admin: 10/06/17 12:04 Dose: 4 mg Tacrolimus (Prograf Cap) 4 mg PO HS [facility] Last Admin: 10/06/17 22:21 Dose: 4 mg Tramadol HCl (Ultram) 50 mg PO TID PRN PRN Reason: Pain, moderate (4-7) Zolpidem Tartrate (Ambien) 5 mg PO HS [facility] Last Admin: 10/06/17 22:45 Dose: 5 mg - Labs Labs: 10/06/17 07:41 10/06/17 07:41 PT 11.8 SECONDS (9.7-12.2) 10/04/17 07:54 INR 1.0 10/04/17 07:54 APTT 38 SECONDS (21-34) H 10/04/17 07:54 - Constitutional Appears: Non-toxic, No Acute Distress - Eye Exam Eye Exam: Normal appearance - Respiratory Exam Respiratory Exam: NORMAL BREATHING PATTERN. absent: Accessory Muscle Use, Respiratory Distress - Cardiovascular Exam Cardiovascular Exam: REGULAR RHYTHM - GI/Abdominal Exam GI & Abdominal Exam: Soft. absent: Distended, Tenderness - Neurological Exam Neurological Exam: Alert, Awake
--- NOTE | 2017-10-07 08:16 | CP.PCM.PN ---
Subjective - Date & Time of Evaluation Date of Evaluation: 10/07/17 Time of Evaluation: 08:14 - Subjective Subjective: seen and examined in hd hd saturday unremarkable plan for avf noted bp stable hiv hepatitis neg, complements normal. ua 1/ proteinuria. no complaints creatinine 5.7 mg/dl pre dialysis Objective - Vital Signs/Intake and Output Vital Signs (last 24 hours): Temp Pulse Resp BP Pulse Ox 98.4 F 73 18 151/67 H 95 10/07/17 04:41 10/07/17 04:41 10/07/17 04:41 10/07/17 04:41 10/07/17 04:41 Intake and Output: 10/07/17 10/07/17 06:59 18:59 Intake Total 360 Balance 360 - Medications Medications: Current Medications Alprazolam (Xanax) 1 mg PO DAILY PRN PRN Reason: Anxiety Last Admin: 10/06/17 12:46 Dose: 1 mg Amlodipine Besylate (Norvasc) 5 mg PO BID [facility] Last Admin: 10/06/17 18:00 Dose: 5 mg Clopidogrel Bisulfate (Plavix) 75 mg PO DAILY [facility] Last Admin: 10/06/17 10:53 Dose: 75 mg Gabapentin (Neurontin) 100 mg PO TID [facility] Last Admin: 10/06/17 18:01 Dose: 100 mg Home Med (Patient's Own Medication) 0.5 tab PO Q12 [facility] Last Admin: 10/06/17 22:17 Dose: 0.5 tab Sodium Chloride (Sodium Chloride 0.9%) 1,000 mls @ 100 mls/hr IV .Q10H [facility] Last Admin: 10/07/17 01:00 Dose: Not Given Insulin Glargine (Lantus) 20 unit SC HS [facility] Last Admin: 10/06/17 22:24 Dose: 20 unit Insulin Human Regular (Novolin R) 0 unit SC ACHS [facility] PRN Reason: Protocol Last Admin: 10/06/17 22:23 Dose: 2 unit Metoprolol Tartrate (Lopressor) 50 mg PO BID [facility] Last Admin: 10/06/17 22:16 Dose: 50 mg Oxycodone/Acetaminophen (Percocet 5/325 Mg Tab) 1 tab PO Q6H PRN PRN Reason: Pain, severe (8-10) Stop: 10/08/17 10:27 Last Admin: 10/05/17 22:18 Dose: 1 tab Pantoprazole Sodium (Protonix Ec Tab) 40 mg PO DAILY [facility] Last Admin: 10/06/17 10:54 Dose: 40 mg Sodium Bicarbonate (Sodium Bicarbonate Tab) 650 mg PO BID [facility] Last Admin: 10/06/17 18:00 Dose: 650 mg Tacrolimus (Prograf Cap) 4 mg PO DAILY [facility] Last Admin: 10/06/17 12:04 Dose: 4 mg Tacrolimus (Prograf Cap) 4 mg PO HS [facility] Last Admin: 10/06/17 22:21 Dose: 4 mg Tramadol HCl (Ultram) 50 mg PO TID PRN PRN Reason: Pain, moderate (4-7) Zolpidem Tartrate (Ambien) 5 mg PO HS [facility] Last Admin: 10/06/17 22:45 Dose: 5 mg - Labs Labs: 10/06/17 07:41 10/06/17 07:41 PT 11.8 SECONDS (9.7-12.2) 10/04/17 07:54 INR 1.0 10/04/17 07:54 APTT 38 SECONDS (21-34) H 10/04/17 07:54 - Constitutional Appears: Non-toxic, No Acute Distress - Head Exam Head Exam: NORMAL INSPECTION - Eye Exam Eye Exam: Normal appearance, PERRL Pupil Exam: PERRL - ENT Exam ENT Exam: Mucous Membranes Moist, Normal Exam - Neck Exam Neck Exam: Normal Inspection - Respiratory Exam Respiratory Exam: Clear to Ausculation Bilateral, NORMAL BREATHING PATTERN - Cardiovascular Exam Cardiovascular Exam: REGULAR RHYTHM, RRR Additional comments: rt chest permcath - GI/Abdominal Exam GI & Abdominal Exam: Soft, Normal Bowel Sounds - Extremities Exam Extremities Exam: Full ROM, Normal Inspection Assessment and Plan (1) Creatinine elevation Status: Acute (2) Chronic renal disease Status: Chronic (3) History of renal transplant Status: Chronic (4) GASTON (acute kidney injury) Status: Acute (5) Atherosclerotic PVD with intermittent claudication Status: Acute (6) History of CEA (carotid endarterectomy) Status: Acute (7) Leg pain, diffuse Status: Acute (8) Uncontrolled hypertension Status: Acute - Assessment and Plan (Free Text) Assessment: 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 hd today dc sodium bicarb hgb at goal check pth phos lower gabapentin dose
[2017-10-07] MEDS: (Novolin R) Insulin Human Regular 100 units/ml vial SC SCH ×4 (08:40→21:28)
[2017-10-07] MEDS: Pantoprazole 40 mg EC Tab PO SCH (09:30)
[2017-10-07 09:49] LABS: CALCIUM 8.1 mg/dl (8.6-10.4)
[2017-10-07 11:44] LABS: HEPATITIS B CORE AB Negative (NEGATIVE)
[2017-10-07 11:56] LABS: HEPATITIS C ANTIBODY Negative (NEGATIVE)
--- NOTE | 2017-10-07 14:24 | CP.PCM.PN ---
Subjective - Date & Time of Evaluation Date of Evaluation: 10/07/17 Time of Evaluation: 14:24 - Subjective Subjective: for saturday Objective - Vital Signs/Intake and Output Vital Signs (last 24 hours): Temp Pulse Resp BP Pulse Ox 97.8 F 73 20 158/78 H 95 10/07/17 08:43 10/07/17 12:00 10/07/17 08:43 10/07/17 08:43 10/07/17 08:43 Intake and Output: 10/07/17 10/07/17 06:59 18:59 Intake Total 360 Balance 360 - Medications Medications: Current Medications Alprazolam (Xanax) 1 mg PO DAILY PRN PRN Reason: Anxiety Last Admin: 10/06/17 12:46 Dose: 1 mg Amlodipine Besylate (Norvasc) 5 mg PO BID [facility] Last Admin: 10/07/17 09:31 Dose: Not Given Clopidogrel Bisulfate (Plavix) 75 mg PO DAILY [facility] Last Admin: 10/07/17 09:30 Dose: 75 mg Gabapentin (Neurontin) 100 mg PO DAILY [facility] Last Admin: 10/07/17 09:30 Dose: 100 mg Home Med (Patient's Own Medication) 0.5 tab PO Q12 [facility] Last Admin: 10/07/17 09:32 Dose: 0.5 tab Insulin Glargine (Lantus) 20 unit SC HS [facility] Last Admin: 10/06/17 22:24 Dose: 20 unit Insulin Human Regular (Novolin R) 0 unit SC [facility] PRN Reason: Protocol Last Admin: 10/07/17 12:32 Dose: 6 unit Metoprolol Tartrate (Lopressor) 50 mg PO BID [facility] Last Admin: 10/07/17 09:30 Dose: Not Given Oxycodone/Acetaminophen (Percocet 5/325 Mg Tab) 1 tab PO Q6H PRN PRN Reason: Pain, severe (8-10) Stop: 10/08/17 10:27 Last Admin: 10/05/17 22:18 Dose: 1 tab Pantoprazole Sodium (Protonix Ec Tab) 40 mg PO DAILY [facility] Last Admin: 10/07/17 09:30 Dose: 40 mg Tacrolimus (Prograf Cap) 4 mg PO DAILY [facility] Last Admin: 10/07/17 09:31 Dose: 4 mg Tacrolimus (Prograf Cap) 4 mg PO HS [facility] Last Admin: 10/06/17 22:21 Dose: 4 mg Tramadol HCl (Ultram) 50 mg PO TID PRN PRN Reason: Pain, moderate (4-7) Zolpidem Tartrate (Ambien) 5 mg PO HS [facility] Last Admin: 10/06/17 22:45 Dose: 5 mg - Labs Labs: 10/06/17 07:41 10/07/17 09:27 PT 11.8 SECONDS (9.7-12.2) 10/04/17 07:54 INR 1.0 10/04/17 07:54 APTT 38 SECONDS (21-34) H 10/04/17 07:54
[2017-10-07] MEDS: Oxycodone/Acetaminophen 5/325 mg Tab PO PRN (17:22)
--- NOTE | 2017-10-07 17:43 | CP.PCM.PN ---
Subjective - Date & Time of Evaluation Date of Evaluation: 10/07/17 Time of Evaluation: 17:42 - Subjective Subjective: pt is getting hd BP high sugar elevated no symptoms clincially ok continue the current treatment will f/u for out pt dialysis arrangement and d/c plan in am Objective - Vital Signs/Intake and Output Vital Signs (last 24 hours): Temp Pulse Resp BP Pulse Ox 98.1 F 80 20 192/92 H 99 10/07/17 16:50 10/07/17 16:50 10/07/17 16:50 10/07/17 16:50 10/07/17 16:50 Intake and Output: 10/07/17 10/07/17 06:59 18:59 Intake Total 360 Balance 360 - Medications Medications: Current Medications Alprazolam (Xanax) 1 mg PO DAILY PRN PRN Reason: Anxiety Last Admin: 10/06/17 12:46 Dose: 1 mg Amlodipine Besylate (Norvasc) 5 mg PO BID [facility] Last Admin: 10/07/17 17:37 Dose: 5 mg Clopidogrel Bisulfate (Plavix) 75 mg PO DAILY [facility] Last Admin: 10/07/17 09:30 Dose: 75 mg Gabapentin (Neurontin) 100 mg PO DAILY [facility] Last Admin: 10/07/17 09:30 Dose: 100 mg Home Med (Patient's Own Medication) 0.5 tab PO Q12 [facility] Last Admin: 10/07/17 09:32 Dose: 0.5 tab Insulin Glargine (Lantus) 20 unit SC HS [facility] Last Admin: 10/06/17 22:24 Dose: 20 unit Insulin Human Regular (Novolin R) 0 unit SC ACHS [facility] PRN Reason: Protocol Last Admin: 10/07/17 17:21 Dose: 2 unit Metoprolol Tartrate (Lopressor) 50 mg PO BID [facility] Last Admin: 10/07/17 17:36 Dose: 50 mg Oxycodone/Acetaminophen (Percocet 5/325 Mg Tab) 1 tab PO Q6H PRN PRN Reason: Pain, severe (8-10) Stop: 10/08/17 10:27 Last Admin: 10/07/17 17:22 Dose: 1 tab Pantoprazole Sodium (Protonix Ec Tab) 40 mg PO DAILY [facility] Last Admin: 10/07/17 09:30 Dose: 40 mg Tacrolimus (Prograf Cap) 4 mg PO DAILY [facility] Last Admin: 10/07/17 09:31 Dose: 4 mg Tacrolimus (Prograf Cap) 4 mg PO HS [facility] Last Admin: 10/06/17 22:21 Dose: 4 mg Tramadol HCl (Ultram) 50 mg PO TID PRN PRN Reason: Pain, moderate (4-7) Zolpidem Tartrate (Ambien) 5 mg PO HS [facility] Last Admin: 10/06/17 22:45 Dose: 5 mg - Labs Labs: 10/06/17 07:41 10/07/17 09:27 PT 11.8 SECONDS (9.7-12.2) 10/04/17 07:54 INR 1.0 10/04/17 07:54 APTT 38 SECONDS (21-34) H 10/04/17 07:54
[2017-10-07] MEDS: (Lantus) Insulin Glargine, Recombinant SC SCH (21:28)
[2017-10-08] MEDS: (Novolin R) Insulin Human Regular 100 units/ml vial SC SCH ×4 (07:57→22:16)
[2017-10-08] MEDS: Pantoprazole 40 mg EC Tab PO SCH (09:15)
--- NOTE | 2017-10-08 10:06 | CP.PCM.PN ---
Subjective - Date & Time of Evaluation Date of Evaluation: 10/08/17 Time of Evaluation: 10:03 - Subjective Subjective: een and examined tolerating hd well, good uop high sugars noted plan for avf noted bp stable hiv hepatitis neg, complements normal. ua 1/ proteinuria. no complaints creatinine 5.7 mg/dl pre dialysis Objective - Vital Signs/Intake and Output Vital Signs (last 24 hours): Temp Pulse Resp BP Pulse Ox 98.4 F 70 20 186/86 H 97 10/08/17 08:53 10/08/17 08:53 10/08/17 08:53 10/08/17 08:53 10/08/17 08:53 - Medications Medications: Current Medications Alprazolam (Xanax) 1 mg PO DAILY PRN PRN Reason: Anxiety Last Admin: 10/06/17 12:46 Dose: 1 mg Amlodipine Besylate (Norvasc) 5 mg PO BID [facility] Last Admin: 10/08/17 09:15 Dose: 5 mg Clopidogrel Bisulfate (Plavix) 75 mg PO DAILY [facility] Last Admin: 10/08/17 09:10 Dose: Not Given Gabapentin (Neurontin) 100 mg PO DAILY [facility] Last Admin: 10/08/17 09:15 Dose: 100 mg Home Med (Patient's Own Medication) 0.5 tab PO Q12 [facility] Last Admin: 10/08/17 09:18 Dose: 0.5 tab Insulin Glargine (Lantus) 20 unit SC HS [facility] Last Admin: 10/07/17 21:28 Dose: 20 unit Insulin Human Regular (Novolin R) 0 unit SC ACHS [facility] PRN Reason: Protocol Last Admin: 10/08/17 07:57 Dose: Not Given Metoprolol Tartrate (Lopressor) 50 mg PO BID [facility] Last Admin: 10/08/17 09:15 Dose: 50 mg Oxycodone/Acetaminophen (Percocet 5/325 Mg Tab) 1 tab PO Q6H PRN PRN Reason: Pain, severe (8-10) Stop: 10/08/17 10:27 Last Admin: 10/07/17 17:22 Dose: 1 tab Pantoprazole Sodium (Protonix Ec Tab) 40 mg PO DAILY [facility] Last Admin: 10/08/17 09:15 Dose: 40 mg Tacrolimus (Prograf Cap) 4 mg PO DAILY [facility] Last Admin: 10/08/17 09:15 Dose: 4 mg Tacrolimus (Prograf Cap) 4 mg PO HS [facility] Last Admin: 10/07/17 21:09 Dose: 4 mg Tramadol HCl (Ultram) 50 mg PO TID PRN PRN Reason: Pain, moderate (4-7) Zolpidem Tartrate (Ambien) 5 mg PO HS [facility] Last Admin: 10/07/17 21:59 Dose: 5 mg - Labs Labs: 10/06/17 07:41 10/07/17 09:27 PT 11.8 SECONDS (9.7-12.2) 10/04/17 07:54 INR 1.0 10/04/17 07:54 APTT 38 SECONDS (21-34) H 10/04/17 07:54 - Constitutional Appears: Non-toxic, No Acute Distress, Chronically Ill - Head Exam Head Exam: NORMAL INSPECTION - Eye Exam Eye Exam: Normal appearance, PERRL Pupil Exam: NORMAL ACCOMODATION, PERRL - ENT Exam ENT Exam: Mucous Membranes Moist, Normal Exam - Neck Exam Neck Exam: Full ROM, Normal Inspection - Respiratory Exam Respiratory Exam: Clear to Ausculation Bilateral, NORMAL BREATHING PATTERN (rt chest permcath) - Cardiovascular Exam Cardiovascular Exam: REGULAR RHYTHM, RRR - GI/Abdominal Exam GI & Abdominal Exam: Distended, Soft, Normal Bowel Sounds - Extremities Exam Extremities Exam: Full ROM, Normal Inspection - Back Exam Back Exam: NORMAL INSPECTION - Neurological Exam Neurological Exam: Alert, Awake, CN II-XII Intact, Oriented x3 - Psychiatric Exam Psychiatric exam: Normal Affect, Normal Mood - Skin Skin Exam: Normal Color, Warm Assessment and Plan (1) Creatinine elevation Status: Acute (2) Chronic renal disease Status: Chronic (3) History of renal transplant Status: Chronic (4) GASTON (acute kidney injury) Status: Acute (5) Atherosclerotic PVD with intermittent claudication Status: Acute (6) History of CEA (carotid endarterectomy) Status: Acute (7) Leg pain, diffuse Status: Acute (8) Uncontrolled hypertension Status: Acute - Assessment and Plan (Free Text) Assessment: maintain hd mwf, chronic hd needed avf today outpt placement at [address] norvasc 10mg daily, add losartan bp remains high blood sugar control per primary team
--- NOTE | 2017-10-08 11:14 | VASCLAB ---
PROCEDURE: Left Upper Extremity Venous Duplex Exam HISTORY: Left Upper extremity vein mapping PRIORS: None. TECHNIQUE: Left upper extremity, internal jugular, subclavian, axillary, brachial, ulnar, radial, basilic and upper cephalic veins were evaluated. Flow was assessed with color Doppler, compressibility, assessment of phasic flow and augmentation response. Report prepared by ANJEL Herbert FINDINGS: LEFT: 1. Internal Jugular Vein: Compressibility - Fully compressible: Thrombus - None : Flow - Phasic 2. Subclavian Vein:Compressibility - Fully compressible: Thrombus - None : Flow - Phasic 3. Axillary Vein: Compressibility - Fully compressible: Thrombus - None 4. Brachial Vein: Compressibility - Fully compressible: Thrombus - None 5. Ulnar Vein:Compressibility - Fully compressible: Thrombus - None 6. Radial Vein:Compressibility - Fully compressible: Thrombus - None 7. Cephalic Vein: Compressibility - Fully compressible: thrombus - None 7.1. Upper Arm: Proximal Diameter: 0.23cm. Mid Diameter: 0.18cm. Distal Diameter: 0.22cm. Antecubital Fossa: 0.26cm. 7.2. Forearm: Proximal Diameter: 0.47cm. Mid Diameter:0.32cm. Distal Diameter: 0.28cm 8. Basilic Vein:Compressibility - Fully compressible: thrombus - None 8.1. Upper Arm:Proximal Diameter: 0.49cm. Mid Diameter: 0.44cm. Distal Diameter: 0.34cm. Antecubital Fossa: 0.23cm. 8.2. Forearm: Proximal Diameter: 0.16cm. Mid Diameter:0.11cm. Distal Diameter: cm. OTHER FINDINGS: None. IMPRESSION: The diameter measurements of the left cephalic vein is measured between 0.18 cm and 0.47 cm and basilic vein is measured between 0.11cm and 0.49cm.
[2017-10-08 11:25] LABS: CALCIUM 8.2 mg/dl (8.6-10.4)
[2017-10-08] MEDS ORDERED: Papaverine Hydrochloride 30 mg/ml (2ml) ONE (13:51)
[2017-10-08] MEDS ORDERED: HEPARIN-NS 5,000 UNITS/500 ML 5,000 UNIT/500 ML BAG IV ONE (13:51)
[2017-10-08] MEDS ORDERED: Lidocaine 1% Inj (20ml) ONE (13:51)
[2017-10-08] MEDS ORDERED: Etomidate 20 mg/10ml Inj IV ONE (13:56)
[2017-10-08] MEDS ORDERED: Propofol 10 mg/ml Inj (20 ML) ONE (13:56)
[2017-10-08] MEDS ORDERED: Sodium Chloride 0.9% 1,000 ML IV ONE (13:57)
[2017-10-08] MEDS ORDERED: ceFAZolin IV 1 gm in Dextrose 1 GM/50 ML BAG IVPB ONE (14:08)
[2017-10-08] MEDS ORDERED: Phenylephrine 10 mg/ml Inj ONE (14:51)
--- NOTE | 2017-10-08 15:45 | PCM.SURG1 ---
Surgeon's Initial Post Op Note - Surgeon's Notes Surgeon: Dr. Garrido Pin Ball Machine Mechanic: Dr. Guevara PGY2 Type of Anesthesia: General LMA Pre-Operative Diagnosis: ESRD Operative Findings: see dictation Post-Operative Diagnosis: same Operation Performed: left av fistula creation Specimen/Specimens Removed: none Estimated Blood Loss: EBL {In ML}: 20 Drains Used: No Drains Post-Op Condition: Good Date of Surgery/Procedure: 10/08/17 Time of Surgery/Procedure: 14:00
--- NOTE | 2017-10-08 16:12 | RAD ---
PROCEDURE: HISTORY: Fluoroscopy for PermCath insertion COMPARISON: None TECHNIQUE: Total fluoroscopic time utilized during the procedure: 21.7 seconds. Total dose 5.08 mGy cm squared FINDINGS: Submitted images from the current procedure: 3 Please refer to the physician's notes performing the procedure. IMPRESSION: Less than 1 hour fluoroscopic time utilized during performance of the procedure
[2017-10-08] MEDS: Oxycodone/Acetaminophen 5/325 mg Tab PO PRN ×2 (18:14→22:23)
--- NOTE | 2017-10-08 20:49 | CP.PCM.PN ---
Subjective - Date & Time of Evaluation Date of Evaluation: 10/08/17 Time of Evaluation: 20:47 - Subjective Subjective: pt is doing ok c/o pain in the left arm had AVF in the left hand no fever no cough chest good air entry regular hs moving fingers pt with HTN DM ESRD s/p renal transplant now with acute worsening renal failure on HDs/p avf HD cath for possible HD in am and for d/c plan in AM Objective - Vital Signs/Intake and Output Vital Signs (last 24 hours): Temp Pulse Resp BP Pulse Ox 98.4 F 70 20 137/74 98 10/08/17 17:00 10/08/17 17:00 10/08/17 17:00 10/08/17 17:00 10/08/17 17:00 - Medications Medications: Current Medications Alprazolam (Xanax) 1 mg PO DAILY PRN PRN Reason: Anxiety Last Admin: 10/06/17 12:46 Dose: 1 mg Amlodipine Besylate (Norvasc) 10 mg PO DAILY [facility] Clopidogrel Bisulfate (Plavix) 75 mg PO DAILY [facility] Last Admin: 10/08/17 09:10 Dose: Not Given Gabapentin (Neurontin) 100 mg PO DAILY [facility] Last Admin: 10/08/17 09:15 Dose: 100 mg Home Med (Patient's Own Medication) 0.5 tab PO Q12 [facility] Last Admin: 10/08/17 09:18 Dose: 0.5 tab Insulin Glargine (Lantus) 20 unit SC HS [facility] Last Admin: 10/07/17 21:28 Dose: 20 unit Insulin Human Regular (Novolin R) 0 unit SC ACHS [facility] PRN Reason: Protocol Last Admin: 10/08/17 17:03 Dose: Not Given Losartan Potassium (Cozaar) 25 mg PO DAILY [facility] Last Admin: 10/08/17 11:09 Dose: 25 mg Metoprolol Tartrate (Lopressor) 50 mg PO BID [facility] Last Admin: 10/08/17 19:57 Dose: 50 mg Oxycodone/Acetaminophen (Percocet 5/325 Mg Tab) 1 tab PO Q4H PRN PRN Reason: Pain, moderate (4-7) Stop: 10/11/17 15:47 Last Admin: 10/08/17 18:14 Dose: 1 tab Pantoprazole Sodium (Protonix Ec Tab) 40 mg PO DAILY [facility] Last Admin: 10/08/17 09:15 Dose: 40 mg Tacrolimus (Prograf Cap) 4 mg PO DAILY [facility] Last Admin: 10/08/17 09:15 Dose: 4 mg Tacrolimus (Prograf Cap) 4 mg PO HS [facility] Last Admin: 10/07/17 21:09 Dose: 4 mg Tramadol HCl (Ultram) 50 mg PO TID PRN PRN Reason: Pain, moderate (4-7) Zolpidem Tartrate (Ambien) 5 mg PO HS [facility] Last Admin: 10/07/17 21:59 Dose: 5 mg - Labs Labs: 10/06/17 07:41 10/08/17 10:13 PT 11.8 SECONDS (9.7-12.2) 10/04/17 07:54 INR 1.0 10/04/17 07:54 APTT 38 SECONDS (21-34) H 10/04/17 07:54
[2017-10-08] MEDS: (Lantus) Insulin Glargine, Recombinant SC SCH (22:15)
[2017-10-09] MEDS: Oxycodone/Acetaminophen 5/325 mg Tab PO PRN ×3 (04:28→21:58)
--- NOTE | 2017-10-09 06:50 | OP ---
PROCEDURE DATE: 10/08/2017 PREOPERATIVE DIAGNOSIS: Renal failure. POSTOPERATIVE DIAGNOSIS: Renal failure. PROCEDURE CARRIED OUT: Radiocephalic fistula of the left wrist. SURGEON: Isidro Garrido Jr., MD. REPAIRER WELDING EQUIPMENT: Dr. Mayorga. ANESTHESIOLOGIST: Mr. Layo Carroll. INDICATION: Patient is an older middle-aged man with renal insufficiency,previous kidney transplant, history of multiple peripheral vascular interventions, presents with changes in his condition which lead them to recommend dialysis, previously had a PermCath placed. In the left arm, he has a chronic deformity which prevents full extension of the arm but allows lateral rotation. We created the fistula through the surface vein, more cephalad than usually we would do. At the end of the procedure, there was good flow through the fistula and there was palpable pulse on the wrist. DESCRIPTION OF PROCEDURE: Patient was given general anesthesia, intravenous antibiotics. An incision was made over the vein which was mobilized with an incision made over the artery. An end-to-side fistula was created using loupe magnification and heparin anticoagulation. After obtaining hemostasis, the wound was closed with nylon sutures. There were no operative complications or problems. Blood loss was less than 20 mL. Operation carried out, brachiocephalic fistula, left wrist. Isidro Garrido Jr., MD cc: Douglas Zapata MD
[2017-10-09] MEDS: (Novolin R) Insulin Human Regular 100 units/ml vial SC SCH ×5 (07:58→21:50)
--- NOTE | 2017-10-09 08:20 | CP.PCM.PN ---
Subjective - Date & Time of Evaluation Date of Evaluation: 10/09/17 Time of Evaluation: 06:40 - Subjective Subjective: Vascular Surgery Dr. Garrido Pt S&E @bedside. Pt underwent L AVF creation yesterday. Pt tolerated the procedure well w/ no complications. NAEO. Pt reports minimal pain in L arm. Pain well controlled w/ medication. Pt denies L hand pain, numbness/tingling, decreased ROM. Objective - Vital Signs/Intake and Output Vital Signs (last 24 hours): Temp Pulse Resp BP Pulse Ox 98.1 F 90 20 168/80 H 96 10/08/17 23:55 10/09/17 05:00 10/08/17 23:55 10/09/17 05:00 10/08/17 23:55 Intake and Output: 10/09/17 10/09/17 06:59 18:59 Intake Total 240 Balance 240 - Medications Medications: Current Medications Alprazolam (Xanax) 1 mg PO DAILY PRN PRN Reason: Anxiety Last Admin: 10/08/17 22:51 Dose: 1 mg Amlodipine Besylate (Norvasc) 10 mg PO DAILY [facility] Clopidogrel Bisulfate (Plavix) 75 mg PO DAILY [facility] Last Admin: 10/08/17 09:10 Dose: Not Given Gabapentin (Neurontin) 100 mg PO DAILY [facility] Last Admin: 10/08/17 09:15 Dose: 100 mg Heparin Sodium (Porcine) (Heparin) 5,000 units SC BID [facility] Home Med (Patient's Own Medication) 0.5 tab PO Q12 [facility] Last Admin: 10/08/17 22:17 Dose: 0.5 tab Insulin Glargine (Lantus) 20 unit SC HS [facility] Last Admin: 10/08/17 22:15 Dose: 20 unit Insulin Human Regular (Novolin R) 0 unit SC ACHS [facility] PRN Reason: Protocol Last Admin: 10/09/17 07:58 Dose: 1 unit Losartan Potassium (Cozaar) 25 mg PO DAILY [facility] Last Admin: 10/08/17 11:09 Dose: 25 mg Metoprolol Tartrate (Lopressor) 50 mg PO BID [facility] Last Admin: 10/08/17 19:57 Dose: 50 mg Oxycodone/Acetaminophen (Percocet 5/325 Mg Tab) 1 tab PO Q4H PRN PRN Reason: Pain, moderate (4-7) Stop: 10/11/17 15:47 Last Admin: 10/09/17 04:28 Dose: 1 tab Pantoprazole Sodium (Protonix Ec Tab) 40 mg PO DAILY [facility] Last Admin: 10/08/17 09:15 Dose: 40 mg Tacrolimus (Prograf Cap) 4 mg PO DAILY [facility] Last Admin: 10/08/17 09:15 Dose: 4 mg Tacrolimus (Prograf Cap) 4 mg PO HS [facility] Last Admin: 10/08/17 22:17 Dose: 4 mg Tramadol HCl (Ultram) 50 mg PO TID PRN PRN Reason: Pain, moderate (4-7) Zolpidem Tartrate (Ambien) 5 mg PO HS [facility] Last Admin: 10/08/17 22:14 Dose: 5 mg - Labs Labs: 10/06/17 07:41 10/08/17 10:13 PT 11.8 SECONDS (9.7-12.2) 10/04/17 07:54 INR 1.0 10/04/17 07:54 APTT 38 SECONDS (21-34) H 10/04/17 07:54 - Constitutional Appears: Non-toxic, No Acute Distress - Head Exam Head Exam: NORMAL INSPECTION - Eye Exam Eye Exam: Normal appearance - ENT Exam ENT Exam: Mucous Membranes Moist - Respiratory Exam Respiratory Exam: NORMAL BREATHING PATTERN. absent: Accessory Muscle Use, Respiratory Distress - Cardiovascular Exam Cardiovascular Exam: absent: Bradycardia, Tachycardia - Extremities Exam Additional comments: L radial pulse palpable dressing c.d.i - Neurological Exam Neurological Exam: Alert, Awake, Oriented x3 - Psychiatric Exam Psychiatric exam: Normal Affect, Normal Mood - Skin Skin Exam: Dry, Normal Color, Warm Assessment and Plan - Assessment and Plan (Free Text) Assessment: 62 y/o M POD#1 s/p L AVF creation POD#4 s/p Permacath placement - cont HD via Permacath per nephrology - cont pain management - pt cleared for discharge from surgical standpoint - pt should f/u w/ Dr. Garrido in 7-10days Pt discussed w/ Dr. Radhika Guevara DO PGY2
[2017-10-09 09:40] LABS: EOS # 0.3 K/uL (0.0-0.7); MEAN PLATELET VOLUME 10.9 fL (7.2-11.7); MONO # 0.8 K/uL (0.0-0.8); NEUT # 6.3 K/uL (1.8-7.0); RED CELL DISTRIBUTION WIDTH 15.1 % (11.5-14.5)
[2017-10-09 09:50] LABS: BASO # 0.1 K/uL (0.0-0.2); BASO % 1.3 % (0.0-2.0); EOS % 3.3 % (0.0-4.0); HEMOGLOBIN 11.5 g/dL (12.0-18.0); LYMPH # 1.6 K/uL (1.0-4.3); LYMPH % 17.8 % (20.0-40.0); MEAN CORPUSCULAR HEMOGLOBIN 29.5 pg (27.0-31.0); MEAN CORPUSCULAR HGB CONC 33.7 g/dL (33.0-37.0); NEUT % 68.6 % (50.0-75.0); NRBC % 0.1 % (0.0-2.0); RBC 3.91 Mil/uL (4.40-5.90); WHITE BLOOD COUNT 9.2 K/uL (4.8-10.8)
[2017-10-09 09:53] LABS: CALCIUM 7.8 mg/dl (8.6-10.4)
[2017-10-09 10:14] LABS: MEAN CELL VOLUME 87.5 fL (80.0-94.0)
--- NOTE | 2017-10-09 11:32 | CARD ---
APPROVED REPORT EKG Measurement Heart [id number] ID [id number] <Conclusion> Normal sinus rhythm T wave abnormality, consider inferolateral ischemia Abnormal ECG
--- NOTE | 2017-10-09 12:31 | CP.PCM.PN ---
Subjective - Date & Time of Evaluation Date of Evaluation: 10/09/17 Time of Evaluation: 12:29 - Subjective Subjective: seen on HD 2 kg uf bp elevated no dyspnea no nausea urinating normally no chest pain no fever no abdominal pain no headache no rash no focal weakness no sinus tenderness Objective - Vital Signs/Intake and Output Vital Signs (last 24 hours): Temp Pulse Resp BP Pulse Ox 98 F 64 16 164/87 H 97 10/09/17 09:05 10/09/17 08:37 10/09/17 09:05 10/09/17 11:50 10/09/17 09:05 Intake and Output: 10/09/17 10/09/17 06:59 18:59 Intake Total 240 Balance 240 - Medications Medications: Current Medications Alprazolam (Xanax) 1 mg PO DAILY PRN PRN Reason: Anxiety Last Admin: 10/08/17 22:51 Dose: 1 mg Amlodipine Besylate (Norvasc) 10 mg PO DAILY [facility] Clopidogrel Bisulfate (Plavix) 75 mg PO DAILY [facility] Last Admin: 10/08/17 09:10 Dose: Not Given Gabapentin (Neurontin) 100 mg PO DAILY [facility] Last Admin: 10/08/17 09:15 Dose: 100 mg Heparin Sodium (Porcine) (Heparin) 5,000 units SC BID [facility] Insulin Glargine (Lantus) 20 unit SC HS [facility] Last Admin: 10/08/17 22:15 Dose: 20 unit Insulin Human Regular (Novolin R) 0 unit SC ACHS [facility] PRN Reason: Protocol Last Admin: 10/09/17 07:58 Dose: 1 unit Losartan Potassium (Cozaar) 50 mg PO DAILY [facility] Metoprolol Tartrate (Lopressor) 50 mg PO BID [facility] Last Admin: 10/08/17 19:57 Dose: 50 mg Oxycodone/Acetaminophen (Percocet 5/325 Mg Tab) 1 tab PO Q4H PRN PRN Reason: Pain, moderate (4-7) Stop: 10/11/17 15:47 Last Admin: 10/09/17 04:28 Dose: 1 tab Pantoprazole Sodium (Protonix Ec Tab) 40 mg PO DAILY [facility] Last Admin: 10/08/17 09:15 Dose: 40 mg Tacrolimus (Prograf Cap) 2 mg PO DAILY [facility] Tacrolimus (Prograf Cap) 2 mg PO HS [facility] Tramadol HCl (Ultram) 50 mg PO TID PRN PRN Reason: Pain, moderate (4-7) Zolpidem Tartrate (Ambien) 5 mg PO HS [facility] Last Admin: 10/08/17 22:14 Dose: 5 mg - Labs Labs: 10/09/17 09:37 10/09/17 09:37 PT 11.8 SECONDS (9.7-12.2) 10/04/17 07:54 INR 1.0 10/04/17 07:54 APTT 38 SECONDS (21-34) H 10/04/17 07:54 - Constitutional Appears: Non-toxic, Chronically Ill - Neck Exam Neck Exam: Full ROM. absent: Lymphadenopathy - Respiratory Exam Respiratory Exam: Decreased Breath Sounds. absent: Accessory Muscle Use - Cardiovascular Exam Cardiovascular Exam: REGULAR RHYTHM. absent: Rubs - GI/Abdominal Exam GI & Abdominal Exam: Normal Bowel Sounds. absent: Tenderness - Extremities Exam Extremities Exam: absent: Pedal Edema - Neurological Exam Neurological Exam: Alert, Awake - Psychiatric Exam Psychiatric exam: Normal Affect, Normal Mood Assessment and Plan - Assessment and Plan (Free Text) Plan: kidney transplant failure htn vasculopathy dialysis placement d/c myfortic decrease tacrolimus increase losarten due to increased BP avf with good bruit
[2017-10-09] MEDS: Pantoprazole 40 mg EC Tab PO SCH ×2 (13:34→13:35)
[2017-10-09] MEDS: (Lantus) Insulin Glargine, Recombinant SC SCH (21:46)
[2017-10-10] MEDS: (Novolin R) Insulin Human Regular 100 units/ml vial SC SCH ×4 (08:11→21:50)
--- NOTE | 2017-10-10 10:01 | CP.PCM.PN ---
Subjective - Date & Time of Evaluation Date of Evaluation: 10/10/17 Time of Evaluation: 09:57 - Subjective Subjective: Tolerating dialysis well Discussed home HD with patient- will consider training BP still elevated No more n, v, SOB, CPs, diarrhea, HAs Objective - Vital Signs/Intake and Output Vital Signs (last 24 hours): Temp Pulse Resp BP Pulse Ox 98.7 F 79 20 174/80 H 95 10/10/17 08:42 10/10/17 08:42 10/10/17 08:42 10/10/17 08:42 10/10/17 08:42 Intake and Output: 10/10/17 10/10/17 06:59 18:59 Intake Total 120 Output Total 1 Balance 119 - Medications Medications: Current Medications Alprazolam (Xanax) 1 mg PO DAILY PRN PRN Reason: Anxiety Last Admin: 10/08/17 22:51 Dose: 1 mg Amlodipine Besylate (Norvasc) 10 mg PO DAILY [facility] Last Admin: 10/09/17 13:36 Dose: 10 mg Clopidogrel Bisulfate (Plavix) 75 mg PO DAILY [facility] Last Admin: 10/09/17 13:35 Dose: 75 mg Gabapentin (Neurontin) 100 mg PO DAILY [facility] Last Admin: 10/09/17 13:36 Dose: 100 mg Heparin Sodium (Porcine) (Heparin) 5,000 units SC BID [facility] Last Admin: 10/09/17 17:25 Dose: Not Given Heparin Sodium (Porcine) (Heparin) 3,900 units IVP MWF [facility] Stop: 10/21/17 09:01 Last Admin: 10/09/17 12:50 Dose: 3,900 units Insulin Glargine (Lantus) 20 unit SC HS [facility] Last Admin: 10/09/17 21:46 Dose: 20 unit Insulin Human Regular (Novolin R) 0 unit SC ACHS [facility] PRN Reason: Protocol Last Admin: 10/10/17 08:11 Dose: Not Given Losartan Potassium (Cozaar) 100 mg PO DAILY [facility] Metoprolol Tartrate (Lopressor) 50 mg PO BID [facility] Last Admin: 10/09/17 17:31 Dose: 50 mg Oxycodone/Acetaminophen (Percocet 5/325 Mg Tab) 1 tab PO Q4H PRN PRN Reason: Pain, moderate (4-7) Stop: 10/11/17 15:47 Last Admin: 10/09/17 21:58 Dose: 1 tab Pantoprazole Sodium (Protonix Ec Tab) 40 mg PO DAILY [facility] Last Admin: 10/09/17 13:35 Dose: Not Given Tacrolimus (Prograf Cap) 2 mg PO DAILY [facility] Tacrolimus (Prograf Cap) 2 mg PO HS [facility] Last Admin: 10/09/17 21:48 Dose: 2 mg Tramadol HCl (Ultram) 50 mg PO TID PRN PRN Reason: Pain, moderate (4-7) Zolpidem Tartrate (Ambien) 5 mg PO HS [facility] Last Admin: 10/09/17 21:45 Dose: 5 mg - Labs Labs: 10/09/17 09:37 10/09/17 09:37 PT 11.8 SECONDS (9.7-12.2) 10/04/17 07:54 INR 1.0 10/04/17 07:54 APTT 38 SECONDS (21-34) H 10/04/17 07:54 - Constitutional Appears: No Acute Distress, Chronically Ill - Head Exam Head Exam: ATRAUMATIC, NORMAL INSPECTION - Eye Exam Eye Exam: EOMI, Normal appearance - Neck Exam Neck Exam: Normal Inspection. absent: Tenderness - Respiratory Exam Respiratory Exam: Clear to Ausculation Bilateral, NORMAL BREATHING PATTERN - Cardiovascular Exam Cardiovascular Exam: REGULAR RHYTHM, +S1 - GI/Abdominal Exam GI & Abdominal Exam: Soft. absent: Tenderness - Extremities Exam Extremities Exam: Normal Inspection. absent: Tenderness - Neurological Exam Neurological Exam: Alert, CN II-XII Intact - Skin Skin Exam: Dry, Warm Assessment and Plan (1) ESRD (end stage renal disease) Status: Acute (2) History of renal transplant Status: Chronic (3) Atherosclerotic PVD with intermittent claudication Status: Acute (4) Essential (primary) hypertension Status: Acute (5) History of CEA (carotid endarterectomy) Status: Acute (6) Uncontrolled hypertension Status: Acute - Assessment and Plan (Free Text) Plan: Dialysis MWF Increase losartan dose Refer for outpt dialysis and home training
[2017-10-10] MEDS: Pantoprazole 40 mg EC Tab PO SCH (10:08)
[2017-10-10] MEDS: Oxycodone/Acetaminophen 5/325 mg Tab PO PRN (16:31)
[2017-10-10] MEDS: (Lantus) Insulin Glargine, Recombinant SC SCH (22:10)
--- NOTE | 2017-10-10 22:22 | CP.PCM.PN ---
Subjective - Date & Time of Evaluation Date of Evaluation: 10/10/17 Time of Evaluation: 22:18 - Subjective Subjective: pt is doing well will get hd in am pt refusing for heparin continue the current treatment for OP hemodialysis pending will plan for dc after that Objective - Vital Signs/Intake and Output Vital Signs (last 24 hours): Temp Pulse Resp BP Pulse Ox 98.2 F 76 20 172/79 H 100 10/10/17 16:21 10/10/17 17:26 10/10/17 16:21 10/10/17 16:21 10/10/17 16:21 - Medications Medications: Current Medications Alprazolam (Xanax) 1 mg PO DAILY PRN PRN Reason: Anxiety Last Admin: 10/08/17 22:51 Dose: 1 mg Amlodipine Besylate (Norvasc) 10 mg PO DAILY [facility] Last Admin: 10/10/17 10:08 Dose: 10 mg Clopidogrel Bisulfate (Plavix) 75 mg PO DAILY [facility] Last Admin: 10/10/17 10:08 Dose: 75 mg Gabapentin (Neurontin) 100 mg PO DAILY [facility] Last Admin: 10/10/17 10:08 Dose: 100 mg Heparin Sodium (Porcine) (Heparin) 5,000 units SC BID [facility] Last Admin: 10/10/17 17:17 Dose: Not Given Heparin Sodium (Porcine) (Heparin) 3,900 units IVP MWF [facility] Stop: 10/21/17 09:01 Last Admin: 10/09/17 12:50 Dose: 3,900 units Insulin Glargine (Lantus) 20 unit SC HS [facility] Last Admin: 10/10/17 22:10 Dose: 20 unit Insulin Human Regular (Novolin R) 0 unit SC ACHS [facility] PRN Reason: Protocol Last Admin: 10/10/17 21:50 Dose: Not Given Losartan Potassium (Cozaar) 100 mg PO DAILY [facility] Last Admin: 10/10/17 10:08 Dose: 100 mg Metoprolol Tartrate (Lopressor) 50 mg PO BID [facility] Last Admin: 10/10/17 17:38 Dose: 50 mg Oxycodone/Acetaminophen (Percocet 5/325 Mg Tab) 1 tab PO Q4H PRN PRN Reason: Pain, moderate (4-7) Stop: 10/11/17 15:47 Last Admin: 10/10/17 16:31 Dose: 1 tab Pantoprazole Sodium (Protonix Ec Tab) 40 mg PO DAILY [facility] Last Admin: 10/10/17 10:08 Dose: 40 mg Tacrolimus (Prograf Cap) 2 mg PO DAILY [facility] Last Admin: 10/10/17 10:07 Dose: 2 mg Tacrolimus (Prograf Cap) 2 mg PO HS [facility] Last Admin: 10/10/17 22:10 Dose: 2 mg Tramadol HCl (Ultram) 50 mg PO TID PRN PRN Reason: Pain, moderate (4-7) Zolpidem Tartrate (Ambien) 5 mg PO HS [facility] Last Admin: 10/10/17 22:10 Dose: 5 mg - Labs Labs: 10/09/17 09:37 10/09/17 09:37 PT 11.8 SECONDS (9.7-12.2) 10/04/17 07:54 INR 1.0 10/04/17 07:54 APTT 38 SECONDS (21-34) H 10/04/17 07:54
[2017-10-11] MEDS: (Novolin R) Insulin Human Regular 100 units/ml vial SC SCH ×4 (07:55→22:10)
[2017-10-11] MEDS: Pantoprazole 40 mg EC Tab PO SCH ×2 (10:42→13:53)
--- NOTE | 2017-10-11 14:09 | CP.PCM.PN ---
Subjective - Date & Time of Evaluation Date of Evaluation: 10/11/17 Time of Evaluation: 14:06 - Subjective Subjective: Stable dialysis now Feel much better No HAs, n, v, fever, chills, CPs, ROD Outpt dialysis should be arranged for 10/15/17 Will need short HD in AM then possible discharge Objective - Vital Signs/Intake and Output Vital Signs (last 24 hours): Temp Pulse Resp BP Pulse Ox 97.9 F 83 16 155/78 H 95 10/11/17 09:00 10/11/17 14:01 10/11/17 09:00 10/11/17 14:01 10/11/17 07:00 - Medications Medications: Current Medications Alprazolam (Xanax) 1 mg PO DAILY PRN PRN Reason: Anxiety Last Admin: 10/08/17 22:51 Dose: 1 mg Amlodipine Besylate (Norvasc) 10 mg PO DAILY [facility] Last Admin: 10/11/17 13:58 Dose: 10 mg Clopidogrel Bisulfate (Plavix) 75 mg PO DAILY [facility] Last Admin: 10/11/17 13:52 Dose: 75 mg Gabapentin (Neurontin) 100 mg PO DAILY [facility] Last Admin: 10/11/17 13:53 Dose: 100 mg Heparin Sodium (Porcine) (Heparin) 5,000 units SC BID [facility] Last Admin: 10/11/17 10:41 Dose: Not Given Heparin Sodium (Porcine) (Heparin) 3,900 units IVP F [facility] Stop: 10/21/17 09:01 Last Admin: 10/11/17 12:45 Dose: 3,900 units Heparin Sodium (Porcine) (Heparin) 2,000 units IVP [facility] [place] Stop: 10/23/17 09:01 Last Admin: 10/11/17 10:02 Dose: 2,000 units Insulin Glargine (Lantus) 20 unit SC HS [facility] Last Admin: 10/10/17 22:10 Dose: 20 unit Insulin Human Regular (Novolin R) 0 unit SC ACHS [facility] PRN Reason: Protocol Last Admin: 10/11/17 11:49 Dose: Not Given Losartan Potassium (Cozaar) 100 mg PO DAILY [facility] Last Admin: 10/11/17 12:37 Dose: 100 mg Metoprolol Tartrate (Lopressor) 75 mg PO BID [facility] Oxycodone/Acetaminophen (Percocet 5/325 Mg Tab) 1 tab PO Q4H PRN PRN Reason: Pain, moderate (4-7) Stop: 10/11/17 15:47 Last Admin: 10/10/17 16:31 Dose: 1 tab Pantoprazole Sodium (Protonix Ec Tab) 40 mg PO DAILY [facility] Last Admin: 10/11/17 13:53 Dose: 40 mg Tacrolimus (Prograf Cap) 2 mg PO DAILY [facility] Last Admin: 10/11/17 13:53 Dose: 2 mg Tacrolimus (Prograf Cap) 2 mg PO HS [facility] Last Admin: 10/10/17 22:10 Dose: 2 mg Tramadol HCl (Ultram) 50 mg PO TID PRN PRN Reason: Pain, moderate (4-7) Zolpidem Tartrate (Ambien) 5 mg PO HS [facility] Last Admin: 10/10/17 22:10 Dose: 5 mg - Labs Labs: 10/09/17 09:37 10/09/17 09:37 PT 11.8 SECONDS (9.7-12.2) 10/04/17 07:54 INR 1.0 10/04/17 07:54 APTT 38 SECONDS (21-34) H 10/04/17 07:54 - Constitutional Appears: No Acute Distress, Chronically Ill - Head Exam Head Exam: ATRAUMATIC, NORMAL INSPECTION - Eye Exam Eye Exam: EOMI, Normal appearance - Neck Exam Neck Exam: Normal Inspection. absent: Tenderness - Respiratory Exam Respiratory Exam: Clear to Ausculation Bilateral, NORMAL BREATHING PATTERN - Cardiovascular Exam Cardiovascular Exam: REGULAR RHYTHM, +S1 - GI/Abdominal Exam GI & Abdominal Exam: Soft. absent: Tenderness - Extremities Exam Extremities Exam: Normal Inspection. absent: Tenderness - Neurological Exam Neurological Exam: Awake, CN II-XII Intact - Skin Skin Exam: Dry, Warm Assessment and Plan (1) ESRD (end stage renal disease) Status: Acute (2) History of renal transplant Status: Chronic (3) Atherosclerotic PVD with intermittent claudication Status: Acute (4) Essential (primary) hypertension Status: Acute (5) History of CEA (carotid endarterectomy) Status: Acute (6) Uncontrolled hypertension Status: Acute - Assessment and Plan (Free Text) Plan: increase BP meds Repeat dialysis in AM Possible discharge post dialysis in AM
[2017-10-11] MEDS: (Lantus) Insulin Glargine, Recombinant SC SCH (22:13)
[2017-10-12] MEDS: (Novolin R) Insulin Human Regular 100 units/ml vial SC SCH ×2 (08:00→12:37)
[2017-10-12 11:03] VITALS: RESP 18
--- NOTE | 2017-10-12 11:17 | CP.PCM.PN ---
Subjective - Date & Time of Evaluation Date of Evaluation: 10/12/17 Time of Evaluation: 11:15 - Subjective Subjective: seen on dialysis feels fine no complaints ROS- negative 10 point Objective - Vital Signs/Intake and Output Vital Signs (last 24 hours): Temp Pulse Resp BP Pulse Ox 97.9 F 76 18 165/85 H 97 10/12/17 09:40 10/12/17 09:40 10/12/17 09:40 10/12/17 11:10 10/12/17 09:40 Intake and Output: 10/12/17 10/12/17 06:59 18:59 Intake Total 240 Balance 240 - Medications Medications: Current Medications Alprazolam (Xanax) 1 mg PO DAILY PRN PRN Reason: Anxiety Last Admin: 10/11/17 17:55 Dose: 1 mg Amlodipine Besylate (Norvasc) 10 mg PO DAILY [facility] Last Admin: 10/11/17 13:58 Dose: 10 mg Clopidogrel Bisulfate (Plavix) 75 mg PO DAILY [facility] Last Admin: 10/11/17 13:52 Dose: 75 mg Gabapentin (Neurontin) 100 mg PO DAILY [facility] Last Admin: 10/11/17 13:53 Dose: 100 mg Heparin Sodium (Porcine) (Heparin) 3,900 units [place] [facility] [place] Stop: 10/21/17 09:01 Last Admin: 10/11/17 12:45 Dose: 3,900 units Heparin Sodium (Porcine) (Heparin) 2,000 units [place] [facility] [place] Stop: 10/23/17 09:01 Last Admin: 10/11/17 10:02 Dose: 2,000 units Insulin Glargine (Lantus) 20 unit SC HS [facility] Last Admin: 10/11/17 22:13 Dose: 20 unit Insulin Human Regular (Novolin R) 0 unit SC ACHS [facility] PRN Reason: Protocol Last Admin: 10/11/17 22:10 Dose: Not Given Losartan Potassium (Cozaar) 100 mg PO DAILY [facility] Last Admin: 10/11/17 12:37 Dose: 100 mg Metoprolol Tartrate (Lopressor) 75 mg PO BID [facility] Last Admin: 10/11/17 17:48 Dose: 75 mg Pantoprazole Sodium (Protonix Ec Tab) 40 mg PO DAILY [facility] Last Admin: 10/11/17 13:53 Dose: 40 mg Tacrolimus (Prograf Cap) 2 mg PO DAILY [facility] Last Admin: 10/11/17 13:53 Dose: 2 mg Tacrolimus (Prograf Cap) 2 mg PO HS [facility] Last Admin: 10/11/17 22:12 Dose: 2 mg Tramadol HCl (Ultram) 50 mg PO TID PRN PRN Reason: Pain, moderate (4-7) Last Admin: 10/11/17 17:59 Dose: 50 mg Zolpidem Tartrate (Ambien) 5 mg PO HS [facility] Last Admin: 10/11/17 22:13 Dose: 5 mg - Labs Labs: 10/09/17 09:37 10/09/17 09:37 PT 11.8 SECONDS (9.7-12.2) 10/04/17 07:54 INR 1.0 10/04/17 07:54 APTT 38 SECONDS (21-34) H 10/04/17 07:54 - Constitutional Appears: Well, Non-toxic - Head Exam Head Exam: ATRAUMATIC, NORMOCEPHALIC - Eye Exam Eye Exam: EOMI, PERRL - ENT Exam ENT Exam: Mucous Membranes Moist - Respiratory Exam Respiratory Exam: Clear to Ausculation Bilateral. absent: Rhonchi, Wheezes - Cardiovascular Exam Cardiovascular Exam: REGULAR RHYTHM, +S1, +S2 - GI/Abdominal Exam GI & Abdominal Exam: Soft. absent: Tenderness - Extremities Exam Extremities Exam: Full ROM. absent: Pedal Edema - Neurological Exam Neurological Exam: Alert, Awake, Oriented x3 - Psychiatric Exam Psychiatric exam: Normal Affect, Normal Mood - Skin Skin Exam: Dry, Intact Assessment and Plan (1) ESRD (end stage renal disease) Status: Acute (2) History of renal transplant Status: Chronic (3) Atherosclerotic PVD with intermittent claudication Status: Acute (4) Essential (primary) hypertension Status: Acute (5) PVD (peripheral vascular disease) Status: Acute (6) CAD (coronary artery disease) Status: Chronic (7) Diabetes Status: Chronic - Assessment and Plan (Free Text) Plan: HD today stable renal garcia for discharge after HD out pt HD at [facility]
[2017-10-12 12:12] VITALS: PULSE 74; TEMP 97.8; O2SAT 98
[2017-10-12 12:31] VITALS: BP 165/74
[2017-10-12] MEDS: Pantoprazole 40 mg EC Tab PO SCH (12:33)
--- NOTE | 2017-10-12 14:00 | CP.PCM.PN ---
Subjective - Date & Time of Evaluation Date of Evaluation: 10/12/17 Time of Evaluation: 13:58 - Subjective Subjective: PT CLEARED FOR D/C HOME TODAY PER DR. UREÑA. HAD SHORT HD SESSIONA TODAY AND TOLERATED. ALL D/C INFO, F/U APPTS, AND MEDS DISCUSSED WITH THE PT BY REFINED SYRUP OPERATOR AND RN. PT TO SEE HIS PMD IN THE OFFICE WITHIN 1-2 WEEKS. PROVIDED WITH ALL HD ARRANGEMENT INFORMATION. AT BEDSIDE AND AWARE OF PLAN FOR D/C. PT VERBALIZES UNDERSTANDING OF ALL D/C INFO. NO FURTHER ORDERS. Objective - Vital Signs/Intake and Output Vital Signs (last 24 hours): Temp Pulse Resp BP Pulse Ox 97.8 F 74 18 165/74 H 98 10/12/17 11:40 10/12/17 11:40 10/12/17 11:40 10/12/17 12:30 10/12/17 11:40 Intake and Output: 10/12/17 10/12/17 06:59 18:59 Intake Total 240 Balance 240 - Medications Medications: Current Medications Alprazolam (Xanax) 1 mg PO DAILY PRN PRN Reason: Anxiety Last Admin: 10/11/17 17:55 Dose: 1 mg Amlodipine Besylate (Norvasc) 10 mg PO DAILY [facility] Last Admin: 10/12/17 12:31 Dose: 10 mg Clopidogrel Bisulfate (Plavix) 75 mg PO DAILY [facility] Last Admin: 10/12/17 12:32 Dose: 75 mg Gabapentin (Neurontin) 100 mg PO DAILY [facility] Last Admin: 10/12/17 12:32 Dose: 100 mg Heparin Sodium (Porcine) (Heparin) 2,000 units IVP [facility] Stop: 10/23/17 09:01 Last Admin: 10/11/17 10:02 Dose: 2,000 units Insulin Glargine (Lantus) 20 unit SC HS [facility] Last Admin: 10/11/17 22:13 Dose: 20 unit Insulin Human Regular (Novolin R) 0 unit SC ACHS [facility] PRN Reason: Protocol Last Admin: 10/12/17 12:37 Dose: Not Given Losartan Potassium (Cozaar) 100 mg PO DAILY [facility] Last Admin: 10/12/17 12:33 Dose: 100 mg Metoprolol Tartrate (Lopressor) 75 mg PO BID [facility] Last Admin: 10/12/17 12:30 Dose: 75 mg Pantoprazole Sodium (Protonix Ec Tab) 40 mg PO DAILY [facility] Last Admin: 10/12/17 12:33 Dose: 40 mg Tacrolimus (Prograf Cap) 2 mg PO DAILY [facility] Last Admin: 10/12/17 12:34 Dose: 2 mg Tacrolimus (Prograf Cap) 2 mg PO HS [facility] Last Admin: 10/11/17 22:12 Dose: 2 mg Tramadol HCl (Ultram) 50 mg PO TID PRN PRN Reason: Pain, moderate (4-7) Last Admin: 10/11/17 17:59 Dose: 50 mg Zolpidem Tartrate (Ambien) 5 mg PO HS [facility] Last Admin: 10/11/17 22:13 Dose: 5 mg - Labs Labs: 10/09/17 09:37 10/09/17 09:37 PT 11.8 SECONDS (9.7-12.2) 10/04/17 07:54 INR 1.0 10/04/17 07:54 APTT 38 SECONDS (21-34) H 10/04/17 07:54
--- NOTE | 2017-10-14 16:20 | CP.PCM.PN ---
Subjective - Date & Time of Evaluation Date of Evaluation: 10/11/17 Time of Evaluation: 16:20 - Subjective Subjective: patient is currently doing well No chest pain Receiving hemodialysis Patient is having access in the right internal jugular vein Patient also has aA-V shuntplaced on the left forearm Doing well Clinical stable. continue the current treat Objective - Vital Signs/Intake and Output Vital Signs (last 24 hours): Temp Pulse Resp BP Pulse Ox 97.8 F 74 18 165/74 H 98 10/12/17 11:40 10/12/17 11:40 10/12/17 11:40 10/12/17 12:30 10/12/17 11:40 - Labs Labs: 10/09/17 09:37 10/09/17 09:37 PT 11.8 SECONDS (9.7-12.2) 10/04/17 07:54 INR 1.0 10/04/17 07:54 APTT 38 SECONDS (21-34) H 10/04/17 07:54
--- NOTE | 2017-10-14 16:21 | CP.PCM.HP ---
History of Present Illness - History of Present Illness History of Present Illness: Chief complaint: Nausea, vomiting History of present illness: 62-year-old male with history of renal failure, history of renal transplant in 2008 from sister, so far no rejection episodes, doing well. Until recently, he was doing well, he was taking his medication, but he was not seeing the doctors more often than before. He did not see the transplant team recently. Recent blood test was noted to have very highly elevated creatinine level, and immediately patient was sent to the emergency room by the creosoting engineer. He did not have any recent illness, flulike symptoms, or any other major systemic symptoms the But recently few days, he started noticing some nausea, and also minimal shaking in the house. I will receive is okay Past medical history: History of renal failure in the past, never had hemodialysis in the past, patient received a renal transplant in 2008 from his sister. Hypertension. Diabetes. History of peripheral vascular disease, left angioplasty, carotid endarterectomy , neuropathy Allergies: No known drug meds Family history significant for liver disease Current smoker. Quit 8 months ago. Denies any alcohol no drug abuse Review of system: No headache or visual symptoms mild nausea and vomiting. Making urine. Leg cramps and leg swelling noted. Episodes of nausea Vital signs reviewed No neck vein distention noted Chest good air entry bilaterally, no wheezing or rales noted CVS regular heart sound, no murmur noted Abdomen soft, nontender. 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 Patient needed hospitalization. He'll need a possible acute hemodialysis. Nephrology evaluation. Vascular surgical consultation for right venous access. We will continue the antirejection medication. DVT prophylaxis. Glucose control. And will follow the patient. Present on Admission - Present on Admission Any Indicators Present on Admission: No History of DVT/PE: No History of Uncontrolled Diabetes: No Urinary Catheter: No Decubitus Ulcer Present: No Past Patient History - Infectious Disease Hx of Infectious Diseases: None - Past Medical History & Family History Past Medical History?: Yes - Past Social History Smoking Status: Former Smoker - CARDIAC Hx Congestive Heart Failure: Yes Hx Hypertension: Yes - PULMONARY Hx Respiratory Disorders: No Other/Comment: FORMER SMOKER - NEUROLOGICAL Hx Neurological Disorder: No - HEENT Hx HEENT Problems: Yes Hx Cataracts: Yes - RENAL Hx Chronic Kidney Disease: Yes - ENDOCRINE/METABOLIC Hx Endocrine Disorders: Yes Hx Diabetes Mellitus Type 2: Yes - HEMATOLOGICAL/ONCOLOGICAL Hx Blood Disorders: No - INTEGUMENTARY Hx Dermatological Problems: No - MUSCULOSKELETAL/RHEUMATOLOGICAL Hx Musculoskeletal Disorders: No Hx Falls: No - GASTROINTESTINAL Hx Gastrointestinal Disorders: Yes Hx Gastroesophageal Reflux: Yes - GENITOURINARY/GYNECOLOGICAL Hx Genitourinary Disorders: Yes (KIDNEY TRANSPLANT 2008) Other/Comment: NO HEMODIAYLIS. - PSYCHIATRIC Hx Substance Use: No - SURGICAL HISTORY Hx Coronary Stent: Yes (2007) - ANESTHESIA Hx Anesthesia: Yes Hx Anesthesia Reactions: No Hx Malignant Hyperthermia: No Meds Home Medications: Home Medication List Medication Instructions Recorded Confirmed Type Tacrolimus [Prograf Cap] 2 mg PO BID cap 10/12/17 Rx Allergies/Adverse Reactions: Allergies Allergy/AdvReac Type Severity Reaction Status Date / Time No Known Allergies Allergy Verified 10/04/17 07:33 Results - Vital Signs Recent Vital Signs: Last Vital Signs Temp 97.8 F 10/12/17 11:40 Pulse 74 10/12/17 11:40 Resp 18 10/12/17 11:40 BP 165/74 H 10/12/17 12:30 Pulse Ox 98 10/12/17 11:40 - Labs Result Diagrams: 10/09/17 09:37 10/09/17 09:37
--- NOTE | 2017-10-14 16:22 | CP.PCM.PN ---
Subjective - Date & Time of Evaluation Date of Evaluation: 10/06/17 Time of Evaluation: 16:22 - Subjective Subjective: patient getting hemodialysis Denies any chest pain No nausea No vomiting Complaining of leg cramps. He is also very anxious, not able to sleep. Patient is asking for sleeping medication. VitalVital signs reviewed No neck vein distention noted Chest good air entry bilaterally, no wheezing or rales noted CVS regular heart sound, no murmur noted Abdomen soft, nontender. 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 Acute worsening of chronic renal. For hemodialysis. Continue the current treatment Objective - Vital Signs/Intake and Output Vital Signs (last 24 hours): Temp Pulse Resp BP Pulse Ox 97.8 F 74 18 165/74 H 98 10/12/17 11:40 10/12/17 11:40 10/12/17 11:40 10/12/17 12:30 10/12/17 11:40 - Labs Labs: 10/09/17 09:37 10/09/17 09:37 PT 11.8 SECONDS (9.7-12.2) 10/04/17 07:54 INR 1.0 10/04/17 07:54 APTT 38 SECONDS (21-34) H 10/04/17 07:54
--- NOTE | 2017-10-14 16:29 | CP.PCM.PN ---
Subjective - Date & Time of Evaluation Date of Evaluation: 10/09/17 Time of Evaluation: 16:28 - Subjective Subjective: Patient is currently awaiting for outpatient hemodialysis. He will be getting the hemodialysis today. Possibly tomorrow also. After moderate dialysis he will be discharged home. Clinically otherwise stable. Assessment and recommendation: 62-year-old male history of renal insufficiency, diabetes hypertension or high cholesterol peripheral vascular disease. Renal transplant. Acute worsening of renal failure, with the anemia. Patient will be getting the hemodialysis. Once the outpatient dialysis center available patient will be transferred, discharge home after that. Objective - Vital Signs/Intake and Output Vital Signs (last 24 hours): Temp Pulse Resp BP Pulse Ox 97.8 F 74 18 165/74 H 98 10/12/17 11:40 10/12/17 11:40 10/12/17 11:40 10/12/17 12:30 10/12/17 11:40 - Labs Labs: 10/09/17 09:37 10/09/17 09:37 PT 11.8 SECONDS (9.7-12.2) 10/04/17 07:54 INR 1.0 10/04/17 07:54 APTT 38 SECONDS (21-34) H 10/04/17 07:54
--- NOTE | 2017-10-14 16:32 | CP.PCM.DIS ---
Provider - Provider Date of Admission: 10/05/17 08:58 Attending physician: Jimenez Ureña MD Time Spent in preparation of Discharge (in minutes): 45 Hospital Course - Lab Results Lab Results: Most Recent Lab Values WBC 9.2 K/uL (4.8-10.8) 10/09/17 09:37 RBC 3.91 Mil/uL (4.40-5.90) L 10/09/17 09:37 Hgb 11.5 g/dL (12.0-18.0) L 10/09/17 09:37 Hct 34.2 % (35.0-51.0) L 10/09/17 09:37 MCV 87.5 fL (80.0-94.0) D 10/09/17 09:37 MCH 29.5 pg (27.0-31.0) 10/09/17 09:37 MCHC 33.7 g/dL (33.0-37.0) 10/09/17 09:37 RDW 15.1 % (11.5-14.5) H 10/09/17 09:37 Plt Count 128 K/uL (130-400) L D 10/09/17 09:37 MPV 10.9 fL (7.2-11.7) 10/09/17 09:37 Neut % (Auto) 68.6 % (50.0-75.0) 10/09/17 09:37 Lymph % (Auto) 17.8 % (20.0-40.0) L 10/09/17 09:37 [place] % (Auto) 9.0 % (0.0-10.0) 10/09/17 09:37 Eos % (Auto) 3.3 % (0.0-4.0) 10/09/17 09:37 Baso % (Auto) 1.3 % (0.0-2.0) 10/09/17 09:37 Neut # 6.3 K/uL (1.8-7.0) 10/09/17 09:37 Lymph # 1.6 K/uL (1.0-4.3) 10/09/17 09:37 [place] # 0.8 K/uL (0.0-0.8) 10/09/17 09:37 Eos # 0.3 K/uL (0.0-0.7) 10/09/17 09:37 Baso # 0.1 K/uL (0.0-0.2) 10/09/17 09:37 Differential Comment 10/09/17 09:37 PT 11.8 SECONDS (9.7-12.2) 10/04/17 07:54 INR 1.0 10/04/17 07:54 APTT 38 SECONDS (21-34) H 10/04/17 07:54 Sodium 132 mmol/L (132-148) 10/09/17 09:37 Potassium 4.2 mmol/L (3.6-5.2) 10/09/17 09:37 Chloride 101 mmol/L (98-107) 10/09/17 09:37 Carbon Dioxide 22 mmol/L (22-30) 10/09/17 09:37 Anion Gap 12 (10-20) 10/09/17 09:37 BUN 47 mg/dL (9-20) H 10/09/17 09:37 Creatinine 5.1 mg/dL (0.8-1.5) H 10/09/17 09:37 Est GFR ( Amer) 14 10/09/17 09:37 Est GFR (Non-Af Amer) 12 10/09/17 09:37 POC Glucose (mg/dL) 132 mg/dL (65-110) H 10/12/17 06:37 Random Glucose 215 mg/dL (75-110) H 10/09/17 09:37 Calcium 7.8 mg/dl (8.6-10.4) L 10/09/17 09:37 Phosphorus 5.5 mg/dL (2.5-4.5) H 10/05/17 07:16 Magnesium 1.4 mg/dL (1.6-2.3) L 10/05/17 07:16 Total Bilirubin 0.4 mg/dL (0.2-1.3) 10/09/17 09:37 AST 12 U/L (17-59) L 10/09/17 09:37 ALT 17 U/L (21-72) L D 10/09/17 09:37 Alkaline Phosphatase 36 U/L (38-126) L 10/09/17 09:37 Total Creatine Kinase 45 U/L (55-170) L 10/04/17 07:54 NT-Pro-B Natriuret Pep 9130 pg/mL (0-900) H 10/04/17 07:54 Total Protein 5.9 g/dL (6.3-8.3) L 10/09/17 09:37 Albumin 3.0 g/dL (3.5-5.0) L 10/09/17 09:37 Globulin 3.0 gm/dL (2.2-3.9) 10/09/17 09:37 Albumin/Globulin Ratio 1.0 (1.0-2.1) 10/09/17 09:37 PTH Intact Whole Molec 327 pg/mL (14-64) H 10/04/17 14:17 Urine Color Yellow (YELLOW) 10/04/17 09:03 Urine Clarity Clear (Clear) 10/04/17 09:03 Urine pH 5.0 (5.0-8.0) 10/04/17 09:03 Ur Specific [place] 1.012 (1.003-1.030) 10/04/17 09:03 Urine Protein 3+ mg/dL (NEGATIVE) H 10/04/17 09:03 Urine Glucose (UA) 3+ mg/dL (Normal) H 10/04/17 09:03 Urine Ketones Negative mg/dL (NEGATIVE) 10/04/17 09:03 Urine Blood Negative (NEGATIVE) 10/04/17 09:03 Urine Nitrate Negative (NEGATIVE) 10/04/17 09:03 Urine Bilirubin Negative (NEGATIVE) 10/04/17 09:03 Urine Urobilinogen Normal mg/dL (0.2-1.0) 10/04/17 09:03 Ur Leukocyte Esterase Neg Deb/uL (Negative) 10/04/17 09:03 Urine WBC (Auto) 4 /hpf (0-5) 10/04/17 09:03 Urine RBC (Auto) 1 /hpf (0-3) 10/04/17 09:03 Urine Bacteria Rare (<OCC) 10/04/17 09:03 Tacrolimus (LC/MS/MS) 9.9 mcg/L (5.0-20.0) 10/05/17 07:16 Complement C3 98.0 mg/dL (88.0-165.0) 10/04/17 14:17 Complement C4 28.1 mg/dL (14.0-44.0) 10/04/17 14:17 Hep Bs Antigen Negative (NEGATIVE) 10/04/17 14:17 Hep Bs Antibody Negative (NEGATIVE) 10/05/17 14:04 Hep B Core IgM Ab Negative (NEGATIVE) 10/05/17 13:07 Hepatitis C Antibody Negative (NEGATIVE) 10/05/17 13:07 HIV 1&2 Antibody Screen Negative (NEGATIVE) 10/04/17 14:17 - Hospital Course Hospital Course: Chief complaint: Nausea, vomiting History of present illness: 62-year-old male with history of renal failure, history of renal transplant in 2008 from sister, so far no rejection episodes, doing well. Until recently, he was doing well, he was taking his medication, but he was not seeing the doctors more often than before. He did not see the transplant team recently. Recent blood test was noted to have very highly elevated creatinine level, and immediately patient was sent to the emergency room by the health insurance assessor. He did not have any recent illness, flulike symptoms, or any other major systemic symptoms the But recently few days, he started noticing some nausea, and also minimal shaking in the house. I will receive is okay Past medical history: History of renal failure in the past, never had hemodialysis in the past, patient received a renal transplant in 2008 from his sister. Hypertension. Diabetes. History of peripheral vascular disease, left angioplasty, carotid endarterectomy , neuropathy Allergies: No known drug meds Family history significant for liver disease Current smoker. Quit 8 months ago. Denies any alcohol no drug abuse Review of system: No headache or visual symptoms mild nausea and vomiting. Making urine. Leg cramps and leg swelling noted. Episodes of nausea Vital signs reviewed No neck vein distention noted Chest good air entry bilaterally, no wheezing or rales noted CVS regular heart sound, no murmur noted Abdomen soft, nontender. 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 Patient needed hospitalization. He'll need a possible acute hemodialysis. Nephrology evaluation. Vascular surgical consultation for right venous access. We will continue the antirejection medication. DVT prophylaxis. Glucose control. And will follow the patient. course in the Hospital: Patient was seen by nephrologi, vascular surgery. Patient received dialysis catheter permanent, on the right individual vein patient started hemodialysis Tolerating the dialysis Medication adjusted Patient also underwent left arm AV shunt Doing well Will continue the current treat getting the hemodialysis Arrangement was made for outpatient hemodialysis We'll continue the current treatMedications reviewed Follow-up the patient Final diagnosis: Acute on chronic renal failure, with uremia End-stage renal disease History of renal transplant in 2008, still on immunosuppressive treatmentDiabetes Hypertension Diabetic neuropathy Peripheral vascular disease. Will follow the patient Discharge Exam - Head Exam Head Exam: ATRAUMATIC, NORMOCEPHALIC Discharge Plan - Follow Up Plan Condition: FAIR Disposition: HOME/ ROUTINE Instructions: Dialysis Diet (DC), Peripheral Vascular Disease (DC), Arteriovenous Fistula Creation for Hemodialysis (DC), Chronic Hypertension (DC) , End Stage Kidney Disease (DC) Additional Instructions: FOLLOW UP WITH DR. UREÑA OR YOUR PRIMARY DOCTOR IN THE OFFICE WITHIN 1-2 WEEKS. FOLLOW UP WITH DR. BENITES WITHIN 2 WEEKS. CONTINUE YOUR DIALYSIS ARRANGED. FOR FURTHER QUESTIONS, CONTACT DR. UREÑA. Referrals: Douglas Benites MD [Staff Provider] - Isidro Garrido Jr., MD [Staff Provider] - Jimenez Ureña MD [Staff Provider] -
== END 2017-10-12 14:14 | disposition home or self-care (01) | DRG 264 ==
LOC: C.ER 07:07 → C.9E 09:52 → C.3T 11:04 → C.6T 14:40 → OBSVTOIN 10-05 08:58
PROVIDERS: ADMIT Internal Medicine; ATTEND Internal Medicine
PROC: 5A1D70Z Performance of Urinary Filtration, Intermittent, Less than 6 Hours Per Day (ICD-10-PCS; 2017-10-05)
PROC: 02HV33Z Insertion of Infusion Device into Superior Vena Cava, Percutaneous Approach (ICD-10-PCS; 2017-10-05)
PROC: B5181ZA Fluoroscopy of Superior Vena Cava using Low Osmolar Contrast, Guidance (ICD-10-PCS; 2017-10-05)
PROC: 031C0ZF Bypass Left Radial Artery to Lower Arm Vein, Open Approach (ICD-10-PCS; principal; 2017-10-08 12:00)
DX: I13.2 Hypertensive heart and chronic kidney disease with heart failure and with stage 5 chronic kidney disease, or end stage renal disease (principal); N17.9 Acute kidney failure, unspecified; E11.22 Type 2 diabetes mellitus with diabetic chronic kidney disease; E11.40 Type 2 diabetes mellitus with diabetic neuropathy, unspecified; N18.6 End stage renal disease; E87.1 Hypo-osmolality and hyponatremia; E87.2 Acidosis; Z94.0 Kidney transplant status; E11.51 Type 2 diabetes mellitus with diabetic peripheral angiopathy without gangrene; D64.9 Anemia, unspecified; E78.00 Pure hypercholesterolemia, unspecified; F17.200 Nicotine dependence, unspecified, uncomplicated; I25.10 Atherosclerotic heart disease of native coronary artery without angina pectoris; I50.9 Heart failure, unspecified; I70.219 Atherosclerosis of native arteries of extremities with intermittent claudication, unspecified extremity; K21.9 Gastro-esophageal reflux disease without esophagitis; Z83.3 Family history of diabetes mellitus; Z95.5 Presence of coronary angioplasty implant and graft; Z86.718 Personal history of other venous thrombosis and embolism; Z99.2 Dependence on renal dialysis

== ENCOUNTER 2017-11-14 09:56 | Day surgery (SDC) | payer OTHER ==
[2017-11-11 10:40] VITALS: BMI 23.1
[2017-11-14] MEDS ORDERED: Lactated Ringer's 1,000 ML IV ONE ×2 (10:16)
[2017-11-14] MEDS ORDERED: ceFAZolin IV 1 gm in Dextrose 1 GM/50 ML BAG IVPB ONE (10:20)
[2017-11-14] MEDS ORDERED: ceFAZolin IV 2 gm in Dextrose 0 GM/0 ML BAG IVPB ONE (10:20)
[2017-11-14 11:09] LABS: CALCIUM 9.7 mg/dl (8.6-10.4)
[2017-11-14] MEDS ORDERED: Midazolam 2 MG/2 ML VIAL ONE (12:14)
[2017-11-14] MEDS ORDERED: Propofol 10 mg/ml Inj (20 ML) ONE (12:16)
[2017-11-14] MEDS ORDERED: HEPARIN-NS 5,000 UNITS/500 ML 5,000 UNIT/500 ML BAG IV ONE (12:24)
[2017-11-14] MEDS ORDERED: Oxycodone/Acetaminophen 5/325 mg Tab PO ONE ×2 (13:33→15:15)
--- NOTE | 2017-11-14 13:39 | PCM.SURG1 ---
Surgeon's Initial Post Op Note - Surgeon's Notes Surgeon: Dr. Garrido Office System Analyst: PGY1, Edvin OMS3 Type of Anesthesia: General Endo Pre-Operative Diagnosis: Renal failure Operative Findings: see op note Post-Operative Diagnosis: as above Operation Performed: peritoneal dialysis catheter (Tenckhoff) placement Specimen/Specimens Removed: none Estimated Blood Loss: EBL {In ML}: 3 Blood Products Given: N/A Drains Used: No Drains Date of Surgery/Procedure: 11/14/17 Time of Surgery/Procedure: 13:39
[2017-11-14 15:18] VITALS: RESP 16; O2SAT 100
[2017-11-14 16:33] VITALS: BP 110/68; PULSE 64; TEMP 97.2
--- NOTE | 2017-11-14 23:58 | OP ---
PROCEDURE DATE: 11/14/2017 PREOPERATIVE DIAGNOSIS: Renal failure. POSTOPERATIVE DIAGNOSIS: Renal failure. PROCEDURE: Laparoscopic placement of Tenckhoff peritoneal dialysis catheter. SURGEON: Isidro Garrido Jr., MD. FINANCIAL INVESTIGATOR: Dr. Schuster. TYPE OF ANESTHESIA: General anesthesia. ANESTHESIA ADMINISTERED BY: Ijeoma Edwin. INDICATIONS: This is 62-year-old man with renal insufficiency, previous kidney transplant, has a permanent catheter present, and previously he had a fistula created in his left arm, which is maturing nicely. However, the patient has opted for peritoneal dialysis. OPERATIVE FINDINGS: There was no evidence of any intraabdominal hernias. There was no evidence of any intraabdominal adhesions. PROCEDURE: The patient was given general anesthesia and intravenous antibiotics. A Veress needle was inserted in the right upper quadrant. A 5 mm trocar was then inserted here after a pneumoperitoneum had been created. We then were able to look into the midline. In the left paramedian position, we then placed an 8 mm Trocar, skived this above the posterior peritoneum, and then placed the catheter originating adjacent to the umbilicus and terminating just above the bladder deep into the pelvis. We then checked for flow and there was excellent flow in and out of the catheter with no significant amount of blood. We then closed the wounds, secured the catheter to the skin without the use of sutures and terminated the procedure. It was flushed with heparinized saline. The operation carried out is laparoscopic placement of Tenckhoff peritoneal dialysis catheter. Isidro Garrido Jr., MD cc: Douglas Zapata MD
== END 2017-11-14 16:15 | disposition home or self-care (01) ==
LOC: C.SDS 09:56
PROVIDERS: ATTEND Surgery Vascular Surgery
DX: N19 Unspecified kidney failure (principal); Z94.0 Kidney transplant status; Z79.899 Other long term (current) drug therapy
CPT/HCPCS: 36415; 49324; 80048; J0690; J1170; J2250; J2704; J3010; J7120

== ENCOUNTER 2018-09-02 11:32 | Inpatient (IN) | payer OTHER, MEDICARE ==
[2018-09-02 11:41] VITALS: BMI 22.6
[2018-09-02 12:22] LABS: INR 1.1; PROTHROMBIN TIME 11.5 SECONDS (9.7-12.2)
[2018-09-02 12:34] LABS: CALCIUM 9.1 mg/dl (8.6-10.4)
--- NOTE | 2018-09-02 13:31 | RAD ---
HISTORY: PREOP O.R 09/02, peritoneal dialysis catheter. COMPARISON: Chest x-ray performed 10/05/17 TECHNIQUE: Chest PA and lateral FINDINGS: LUNGS: The lung apices are excluded from view. No focal consolidation. Small patchy nodular right upper lobe opacity of unclear significance. Please note that chest x-ray has limited sensitivity for the detection of pulmonary masses. PLEURA: No significant pleural effusion identified. No definite pneumothorax . CARDIOVASCULAR: Heart size appears within normal limits. Atherosclerotic calcification present. OSSEOUS STRUCTURES: No acute osseous abnormality identified. VISUALIZED UPPER ABDOMEN: Free air beneath the right hemidiaphragm. OTHER FINDINGS: None. IMPRESSION: Abdominal free air. Provided history indicates patient with peritoneal dialysis catheter. Small patchy nodular focus in the right upper lobe possibly artifact from confluence of shadows. Suggest outpatient follow-up CT of the chest for further evaluation. Potentially emergent findings discussed Dr. Garrido with 09/02/18 at 1:22 p.m.
[2018-09-02] MEDS ORDERED: Lidocaine 2% MPF (5 ml) Inj ONE (15:46)
[2018-09-02] MEDS ORDERED: Midazolam 2 MG/2 ML VIAL ONE (16:12)
[2018-09-02] MEDS ORDERED: Propofol 10 mg/ml Inj (20 ML) ONE (16:16)
--- NOTE | 2018-09-02 17:27 | PCM.SURG1 ---
Surgeon's Initial Post Op Note - Surgeon's Notes Surgeon: kostas Water Fabricator Operator: 0 Type of Anesthesia: IV Sedation Anesthesia Administered By: leo Pre-Operative Diagnosis: rest pain right foot Operative Findings: high grade stenosis proximal sfa. complete occlusion of sfa. popliteal reconstitution with PT and peroneal runoff Post-Operative Diagnosis: same Operation Performed: right femoral angiogram Specimen/Specimens Removed: o Estimated Blood Loss: EBL {In ML}: 25 Blood Products Given: N/A Drains Used: No Drains Post-Op Condition: Good Date of Surgery/Procedure: 09/02/18 Time of Surgery/Procedure: 17:28
[2018-09-02] MEDS: (Lantus) Insulin Glargine, Recombinant SC SCH (22:00)
[2018-09-03] MEDS: Oxycodone/Acetaminophen 5/325 mg Tab PO PRN ×5 (03:22→22:06)
[2018-09-03] MEDS: HYDROmorphone 1 mg/ml ISec IVP PRN ×4 (09:07→20:07)
--- NOTE | 2018-09-03 10:52 | CP.PCM.PN ---
Subjective - Date & Time of Evaluation Date of Evaluation: 09/03/18 Time of Evaluation: 10:50 - Subjective Subjective: Surgery PT seen and examined. Pt underwent angio yesterday and tolerated it well. Showed Occluded R SFA. Objective - Vital Signs/Intake and Output Vital Signs (last 24 hours): Temp Pulse Resp BP Pulse Ox 98.6 F 70 18 185/82 H 95 09/03/18 07:22 09/03/18 07:22 09/03/18 07:22 09/03/18 09:20 09/03/18 07:22 Intake and Output: 09/03/18 09/03/18 06:59 18:59 Intake Total 130 Output Total 240 Balance -110 - Medications Medications: Current Medications Amlodipine Besylate (Norvasc) 10 mg PO DAILY [facility] Last Admin: 09/03/18 09:20 Dose: 10 mg Carvedilol (Coreg) 12.5 mg PO BID [facility] Last Admin: 09/03/18 09:20 Dose: 12.5 mg Clopidogrel Bisulfate (Plavix) 75 mg PO DAILY [facility] Last Admin: 09/03/18 09:06 Dose: 75 mg Furosemide (Lasix) 80 mg PO DAILY [facility] Last Admin: 09/03/18 09:20 Dose: 80 mg Heparin Sodium (Porcine) (Heparin) 5,000 units SC Q12 [facility] Last Admin: 09/03/18 09:06 Dose: 5,000 units Hydromorphone HCl (Dilaudid) 1 mg IVP Q4 PRN PRN Reason: Pain, severe (8-10) Last Admin: 09/03/18 09:07 Dose: 1 mg Insulin Glargine (Lantus) 25 unit SC HS [facility] Last Admin: 09/02/18 22:00 Dose: 25 units Losartan Potassium (Cozaar) 25 mg PO DAILY [facility] Last Admin: 09/03/18 09:21 Dose: 25 mg Oxycodone/Acetaminophen (Percocet 5/325 Mg Tab) 1 tab PO Q4H PRN PRN Reason: Pain, moderate (4-7) Stop: 09/05/18 17:36 Last Admin: 09/03/18 07:18 Dose: 1 tab - Labs Labs: 09/02/18 12:10 PT 11.5 SECONDS (9.7-12.2) 09/02/18 12:10 INR 1.1 09/02/18 12:10 APTT 31 SECONDS (21-34) 09/02/18 12:10 - Constitutional Appears: No Acute Distress - Head Exam Head Exam: ATRAUMATIC, NORMAL INSPECTION, NORMOCEPHALIC - Eye Exam Eye Exam: Normal appearance - ENT Exam ENT Exam: Mucous Membranes Moist - Neck Exam Neck Exam: Normal Inspection - Respiratory Exam Respiratory Exam: NORMAL BREATHING PATTERN - Cardiovascular Exam Cardiovascular Exam: REGULAR RHYTHM - GI/Abdominal Exam GI & Abdominal Exam: Soft. absent: Distended, Tenderness - Extremities Exam Extremities Exam: absent: Normal Inspection Additional comments: dressing C/D/I - Neurological Exam Neurological Exam: Alert, Awake, CN II-XII Intact, Normal Gait, Oriented x3 - Psychiatric Exam Psychiatric exam: Normal Affect, Normal Mood - Skin Skin Exam: Dry, Intact, Warm Assessment and Plan - Assessment and Plan (Free Text) Assessment: POD 1 s/p angio -Possible bypass Fri or Mon -NEed cardiac clearance -Medical management Will DW Dr. Garrido
--- NOTE | 2018-09-03 14:15 | CP.PCM.CON ---
History of Present Illness - History of Present Illness History of Present Illness: 63 yo male, known to me, hx of ESRD, failed renal transplant, CAD, PVD, HTN, IDDM. Presents with severe right sided foot pain. S/p angiogram with high grade stenosis of the SFA. For probable bypass. Needs medical clearance. On CCPD. NO problem with fluid. Still makes urine. No fever. In moderate amount of pain during interview. Review of Systems - Review of Systems Systems not reviewed;Unavailable: Uncooperative Past Patient History - Infectious Disease Hx of Infectious Diseases: None - Past Medical History & Family History Past Medical History?: Yes - Past Social History Smoking Status: Never Smoked - CARDIAC Hx Cardiac Disorders: Yes Hx Angina: Yes (2007) Hx Congestive Heart Failure: Yes (2007) Hx Heart Attack: Yes (2007) Hx Hypertension: Yes Hx Peripheral Vascular Disease: Yes Other/Comment: HX: LEFT CAROTID STENOSIS - PULMONARY Hx Respiratory Disorders: No - NEUROLOGICAL Hx Neurological Disorder: No - HEENT Hx HEENT Problems: No - RENAL Hx Chronic Kidney Disease: Yes Type of Dialysis Access: peritoneal Date of Last Dialysis Treatment: 09/01/18 Hx Renal Failure: Yes Other/Comment: kidney transplant 2009 failed - ENDOCRINE/METABOLIC Hx Endocrine Disorders: Yes Hx Diabetes Mellitus Type 2: Yes - HEMATOLOGICAL/ONCOLOGICAL Hx Blood Disorders: No - INTEGUMENTARY Hx Dermatological Problems: No - MUSCULOSKELETAL/RHEUMATOLOGICAL Hx Musculoskeletal Disorders: Yes Hx Falls: No Hx Fractures: Yes (left arm contracture post) - GASTROINTESTINAL Hx Gastrointestinal Disorders: Yes Hx Gastroesophageal Reflux: Yes - GENITOURINARY/GYNECOLOGICAL Hx Genitourinary Disorders: Yes (KIDNEY TRANSPLANT 2009 failed) - PSYCHIATRIC Hx Psychophysiologic Disorder: No Hx Substance Use: No - SURGICAL HISTORY Hx Surgeries: Yes Hx Angiogram: Yes Hx Arteriovenous Shunt: Yes (left) Hx Cardiac Catheterization: Yes Hx Carotid Endarterectomy: Yes Hx Coronary Stent: Yes (2007) Hx Kidney Transplant: Yes (2008) Hx Vascular Access Device: Yes (perma cath insertion and removal) Other/Comment: techkoff catheter insertion - ANESTHESIA Hx Anesthesia: Yes Hx Anesthesia Reactions: No Hx Malignant Hyperthermia: No Has any member of the family had a problem w/ anesthesia?: No Meds Allergies/Adverse Reactions: Allergies Allergy/AdvReac Type Severity Reaction Status Date / Time No Known Allergies Allergy Verified 10/04/17 07:33 - Medications Medications: Current Medications Amlodipine Besylate (Norvasc) 10 mg PO DAILY [facility] Last Admin: 09/03/18 09:20 Dose: 10 mg Calcium Acetate (Phoslo) 667 mg PO TID [facility] Carvedilol (Coreg) 12.5 mg PO BID [facility] Last Admin: 09/03/18 09:20 Dose: 12.5 mg Clopidogrel Bisulfate (Plavix) 75 mg PO DAILY [facility] Last Admin: 09/03/18 09:06 Dose: 75 mg Furosemide (Lasix) 80 mg PO DAILY [facility] Last Admin: 09/03/18 09:20 Dose: 80 mg Heparin Sodium (Porcine) (Heparin) 5,000 units SC Q12 [facility] Last Admin: 09/03/18 09:06 Dose: 5,000 units Hydromorphone HCl (Dilaudid) 1 mg IVP Q4 PRN PRN Reason: Pain, severe (8-10) Last Admin: 09/03/18 12:43 Dose: 1 mg Insulin Glargine (Lantus) 25 unit SC HS [facility] Last Admin: 09/02/18 22:00 Dose: 25 units Losartan Potassium (Cozaar) 25 mg PO DAILY [facility] Last Admin: 09/03/18 09:21 Dose: 25 mg Oxycodone/Acetaminophen (Percocet 5/325 Mg Tab) 1 tab PO Q4H PRN PRN Reason: Pain, moderate (4-7) Stop: 09/05/18 17:36 Last Admin: 09/03/18 07:18 Dose: 1 tab Physical Exam - Constitutional Appears: In Acute Distress, Chronically Ill - Head Exam Head Exam: ATRAUMATIC, NORMAL INSPECTION - Eye Exam Eye Exam: EOMI, Normal appearance - ENT Exam ENT Exam: Mucous Membranes Moist - Neck Exam Neck exam: Positive for: Full Rom. Negative for: Lymphadenopathy - Respiratory Exam Respiratory Exam: absent: Accessory Muscle Use - Cardiovascular Exam Cardiovascular Exam: REGULAR RHYTHM. absent: Rubs - GI/Abdominal Exam GI & Abdominal Exam: Distended. absent: Guarding - Extremities Exam Extremities exam: Negative for: pedal edema Additional comments: decreased pulses on right, ischemic changes in right foot - Neurological Exam Neurological exam: Alert, Oriented x3 - Psychiatric Exam Psychiatric exam: Agitated Results - Vital Signs Recent Vital Signs: Last Vital Signs Temp 98.6 F 09/03/18 07:22 Pulse 70 09/03/18 07:22 Resp 18 09/03/18 07:22 BP 185/82 H 09/03/18 09:20 Pulse Ox 95 09/03/18 07:22 - Labs Result Diagrams: 09/02/18 12:10 Labs: Laboratory Results - last 24 hr 09/02/18 09/02/18 09/03/18 18:02 21:33 02:57 POC Glucose (mg/dL) 112 H 148 H 135 H 09/03/18 06:30 POC Glucose (mg/dL) 103 Assessment & Plan - Assessment and Plan (Free Text) Assessment: PD HTN ischemic right foot CAD recommendations of Vascular CAPD for now check cbc cardiology clearance increase BP meds
--- NOTE | 2018-09-03 15:08 | VASCLAB ---
Date of service: 09/03/2018 PROCEDURE: Lower Extremity Vein mapping. HISTORY: pre op potential right leg bypass PRIORS: None. TECHNIQUE: Bilateral common femoral, femoral, popliteal and posterior tibial, peroneal and great saphenous veins were evaluated. Flow was assessed with color Doppler, compressibility, assessment of phasic flow and augmentation response. Report prepared by Ranjith Goodson, BS, RVT FINDINGS: RIGHT: 1. Common Femoral Vein: Compressibility - Fully compressible: Thrombus - None : Flow - Phasic: Augmentation -Normal: Reflux - None. 2. Femoral Vein:Compressibility - Fully compressible: Thrombus - None 3. Popliteal Vein: Compressibility - Fully compressible: Thrombus - None 4. Posterior Tibial Vein: Compressibility - Fully compressible: Thrombus - None 5. Peroneal Vein:Compressibility - Fully compressible: Thrombus - None 6. Greater Saphenous Vein: Compressibility - Fully compressible: Thrombus - None 6.1. Thigh - Proximal Diameter: 0.73cm. Mid Diameter: 0.54cm. Distal Diameter: 0.53cm. Knee Diameter: 0.58cm. 6.2. Calf - Proximal Diameter: 0.50cm. Mid Diameter:0.46cm. Distal Diameter: 0.41cm 6.3. Ankle - Diameter: 0.38cm 7. Edwards Saphenous Vein: Compressibility - Fully compressible: thrombus - None 7.1. Knee - Diameter 0.33cm 7.2. Calf - Proximal Diameter: 0.31cm. Mid Diameter: 0.41cm. Distal Diameter: 0.34cm. 7.3. Ankle - Diameter: 0.42cm LEFT: 1. Common Femoral Vein: Compressibility - Fully compressible: Thrombus - None : Flow - Phasic: Augmentation -Normal: Reflux - None. 2. Femoral Vein:Compressibility - Fully compressible: Thrombus - None 3. Popliteal Vein: Compressibility - Fully compressible: Thrombus - None 4. Posterior Tibial Vein: Compressibility - Fully compressible: Thrombus - None 5. Peroneal Vein:Compressibility - Fully compressible: Thrombus - None 6. Greater Saphenous Vein: Compressibility - Fully compressible: Thrombus - None 6.1. Thigh - Proximal Diameter: 0.88cm. Mid Diameter: 0.59cm. Distal Diameter: 0.57cm. Knee Diameter: 0.54cm. 6.2. Calf - Proximal Diameter: 0.41cm. Mid Diameter:0.49cm. Distal Diameter: 0.54cm 6.3. Ankle - Diameter: 0.47cm 7. Edwards Saphenous Vein: Compressibility - Fully compressible: thrombus - None 7.1. Knee - Diameter 0.62cm 7.2. Calf - Proximal Diameter: 0.44cm. Mid Diameter: 0.40cm. Distal Diameter: 0.33cm. 7.3. Ankle - Diameter: 0.47cm OTHER FINDINGS: Bilateral lower extremity common femoral, femoral, popliteal, posterior tibial, peroneal, greater and lesser saphenous veins were compressible. IMPRESSION: Right: Diameter measurements of the right greater saphenous vein are measured between 0.38 cm and 0.73 cm and lesser saphenous vein is measured between 0.31 cm and 0.42 cm. Left: Diameter measurements of the left greater saphenous vein are measured between 0.41 cm and 0.88cm and lesser saphenous vein is measured between 0.33 cm and 0.62cm.
[2018-09-03 17:07] LABS: BASO % 0.6 % (0.0-2.0); EOS # 0.1 K/uL (0.0-0.7); EOS % 1.4 % (0.0-4.0); HEMOGLOBIN 11.8 g/dL (12.0-18.0); LYMPH # 1.2 K/uL (1.0-4.3); LYMPH % 14.4 % (20.0-40.0); MEAN CELL VOLUME 89.3 fL (80.0-94.0); MEAN CORPUSCULAR HEMOGLOBIN 30.6 pg (27.0-31.0); MEAN CORPUSCULAR HGB CONC 34.3 g/dL (33.0-37.0); MEAN PLATELET VOLUME 9.6 fL (7.2-11.7); MONO # 0.7 K/uL (0.0-0.8); MONO % 8.7 % (0.0-10.0); NEUT # 6.4 K/uL (1.8-7.0); NEUT % 74.9 % (50.0-75.0); NRBC % 0.1 % (0.0-2.0); RBC 3.85 Mil/uL (4.40-5.90); RED CELL DISTRIBUTION WIDTH 15.4 % (11.5-14.5); WHITE BLOOD COUNT 8.6 K/uL (4.8-10.8)
--- NOTE | 2018-09-03 18:39 | CARD ---
APPROVED REPORT Date of service: 09/03/2018 Protocol: PHARMACOLOGICAL STRESS Test Type: LEXISCAN Test Indications: PRE OP Medications: LIST SCAN Target HR: 156 bpm Resting ECG: Sinus Rhythm, LBBB, APCs Resting Heart Rate: 74 bpm Resting Blood Pressure: 168/70mmHg submaximum (85%): 133 bpm TEST SUMMARY [id number]/70.1. INFUSIONDOSE 100:300.00.01.073/.0. VOWCFSHYS07:[id number]/60.2. PROCEDURE Pharmacologic stress testing was performed using 0.4mg per 5ml of regadenoson given intravenously over 7-10 seconds. POST EXERCISE Target HR: No Max HR: 73 bpm 57% of Maximum Predicted HR: 156 bpm Exercise duration: 00:30 min:sec, 0 Stage Exercise capacity: 1.0METs Max Blood Pressure: 168/70mmHg Chest Pain: Yes, Angina index: 0 Arrhythmia: Yes, ST Change: Yes, Deviation: 0 mm INTERPRETATION Stress EKG Conclusion: No chest pain or hypotension. Myoview imaging is pending EXAM: Myocardial Perfusion STRESS/REST Imaging Protocol The imaging protocol used to acquire images was Stress Tc-99m/rest Tc-99m 1 day Stress Spect myocardial perfusion imaging was performed in supine position 40 minutes following the injection of 11.5 mCi of Tc-99 Myoview. Gated Rest Spect was performed 42 minutes after intravenous 32.1 mCi Tc-99 Myoview injection. The images were gated to evaluate regional wall motion and calculate ventricular ejection fraction.Images were reconstructed using backfilter projection method in short horizontal and verticle long axis. Spect slices were generated. RESTING DATA ABT692.56ydDS5.10L/min ESV83.00mlMyocardial Dydy026.00g Av. Heart Rate75.00bpm EF45.00% STRESS DATA JHT331.82gcYZ2.60L/min XDX364.00mlMyocardial Pwvu784.00g EF36.00% Regional WT score at stress:3.00 Regional WM score at stress:2.00 Summed WT score at stress:31.00 Av. Heart Rate81.00bpmSummed WM score at stress:23.00 LV Perfusion 1 Perfusion Defect Location: inferior Perfusion Defect Size: Medium (3-4 segments)Large (> or equal to 5 segments) Perfusion Defect Severity: Severe Type of Perfusion Defect: Fixed LV Perfusion 2 Perfusion Defect Location: lateral Perfusion Defect Size: Small (1-2 segments) Perfusion Defect Severity: Moderate Type of Perfusion Defect: Reversible LV Perf. Quant 17 Seg. SSS11.00 17 Seg. SRS8.00 17 Seg. SDS3.00 Stress Defect Extent (% LAD)0.00Rest Defect Extent (% LAD)0.00Rev. Defect Extent (% LAD)0.00 Stress Defect Extent (% LCX)32.50Rest Defect Extent (% LCX)16.30Rev. Defect Extent (% LCX)23.80 Stress Defect Extent (% RCA)43.30Rest Defect Extent (% RCA)45.60Rev. Defect Extent (% RCA)0.00 Stress Defect Extent (% ANITA)18.00Rest Defect Extent (% ANITA)15.00Rev. Defect Extent (% ANITA)4.80 Conclusion 1. Positive LexiScan for a large inferior scar and a small area of moderately sever lateral ischemia 2. EF 45%
[2018-09-03] MEDS: (Lantus) Insulin Glargine, Recombinant SC SCH (22:06)
--- NOTE | 2018-09-03 22:13 | CARD ---
APPROVED REPORT Date of service: 09/03/2018 EXAM: Two-dimensional and M-mode echocardiogram with Doppler and color Doppler. Other Information Quality : GoodRhythm : INDICATION Pre-Op Cardiac Disease: CAD Surgery/Intervention Status/Post Intervention: Stent 2D DIMENSIONS IVSd1.3 (0.7-1.1cm)LVDd4.1 (3.9-5.9cm) PWd1.2 (0.7-1.1cm)LA Glvvxs02 (18-58mL) LVDs3.4 (2.5-4.0cm)FS (%) 17.9 % LVEF (%)45.0 (>50%)LVEF ([place])41.87 % M-Mode DIMENSIONS Left Atrium (MM)4.24 (2.5-4.0cm)IVSd1.51 (0.7-1.1cm) Aortic Root3.87 (2.2-3.7cm)LVDd4.98 (4.0-5.6cm) Aortic Cusp Exc.2.27 (1.5-2.0cm)PWd1.28 (0.7-1.1cm) FS (%) 25 %LVDs3.73 (2.0-3.8cm) LVEF (%)50 (>50%) Aortic Valve AI P 1/2 Ulug292lp Mitral Valve MV E Jfdlvotj27.9cm/sMV A Fdddgjmn67.7cm/sE/A ratio1.0 TDI Lateral E' Peak V5.51cm/sMedial E' Peak V4.03cm/sE/Lateral E'13.4 E/Medial E'18.3 LEFT VENTRICLE The left ventricle is normal size. There is mild to moderate concentric left ventricular hypertrophy. The left ventricular function is normal. The left ventricular ejection fraction is within the normal range. There is normal LV segmental wall motion. Transmitral Doppler flow pattern is abnormal. RIGHT VENTRICLE The right ventricle is normal size. ATRIA The left atrium is borderline dilated. The right atrium size is normal. AORTIC VALVE There is mild aortic regurgitation. MITRAL VALVE Mitral regurgitation is trace. TRICUSPID VALVE There is trace to mild tricuspid regurgitation. <Conclusion> Borderline LV systolic function. LVH with diastolic dysfunction. Borderline dilated LA. Midl AR. Trace to mild MR. Mild TR.
--- NOTE | 2018-09-04 00:49 | CON ---
DATE: 09/03/2018 REASON FOR CONSULTATION: Preoperative evaluation. HISTORY OF PRESENT ILLNESS: The patient is a 63-year-old male who has a history of hypertension, diabetes mellitus, end-stage renal disease, was initiated on peritoneal dialysis a little less than a year ago. The patient had multiple coronary stenting in the past, most recent one was in 2008 at [facility]. The patient also had peripheral intervention in both lower extremities. He underwent peripheral angiography yesterday, which was consistent with high-grade stenosis of the proximal superficial femoral artery with complete occlusion and popliteal reconstitution with posterior tibial and peroneal runoff in the right lower extremity. The patient denies any chest pain or shortness of breath. SOCIAL HISTORY: The patient is a former smoker who quit many years ago. MEDICATIONS: Coreg 12.5 mg day, Cozaar 25 mg once a day, heparin 5000 units subcutaneously twice a day, Lasix 80 mg once a day, Norvasc 10 mg once a day, Plavix 75 mg once a day, PhosLo one tablet t.i.d. REVIEW OF SYSTEMS: The patient's main complaint is bilateral foot pain, worse on the right foot. PHYSICAL EXAMINATION GENERAL: The patient is a middle-aged male who does not appear to be in respiratory distress. VITAL SIGNS: Blood pressure , heart rate 72, temperature 98.6, respirations 18. HEENT: Normocephalic. CHEST: Clear. HEART: S1 and S2 regular. ABDOMEN: Soft. EXTREMITIES: Coldness in both feet in the toe region with blanching of the right big toe. LABORATORY DATA: EKG revealed sinus rhythm, nonspecific anterolateral EKG changes, although official computer read was ischemia. Preliminary report of the echo ejection fraction today was 45%. The patient underwent Lexiscan, and EKG was consistent with sinus rhythm and left bundle-branch block. There was no remarkable response to IV Lexiscan, and Myoview imaging is still pending. ASSESSMENT: 1. History of coronary artery disease with a history of coronary artery stenting, most recent stent was in 2008 at [facility]. 2. Intermittent left bundle-branch block. 3. Peripheral vascular disease with persistent right food pain. 4. End-stage renal disease, on peritoneal dialysis. 5. Mildly depressed ejection fraction. RECOMMENDATIONS: Continue Coreg 12.5 mg a day, Lasix 80 mg once a day, subcutaneous heparin 5000 units every 12 hours, Norvasc 10 mg once a day, PhosLo one tablet t.i.d., Plavix 75 mg once a day. I would review the Myoview study for risk stratification. Having coronary intervention if needed will be a difficult task because of difficult and dangerous femoral access as per Dr. Garrido and the fact that peripheral revascularization is an urgent process because of persistent right foot pain with blanching of the right big toe. Braulio Joyner MD
[2018-09-04] MEDS: HYDROmorphone 1 mg/ml ISec IVP PRN ×6 (01:04→20:30)
[2018-09-04] MEDS: Oxycodone/Acetaminophen 5/325 mg Tab PO PRN ×5 (03:05→21:25)
--- NOTE | 2018-09-04 07:35 | CARD ---
APPROVED REPORT Date of service: 09/02/2018 EKG Measurement Heart [id number] [place] 168P41 [id number] <Conclusion> Normal sinus rhythm T wave abnormality, consider inferior ischemia Abnormal ECG
--- NOTE | 2018-09-04 08:56 | CP.PCM.PN ---
Subjective - Date & Time of Evaluation Date of Evaluation: 09/04/18 Time of Evaluation: 08:53 - Subjective Subjective: Still with R LE pains Will need bypass surgery PD going well no other complant Objective - Vital Signs/Intake and Output Vital Signs (last 24 hours): Temp Pulse Resp BP Pulse Ox 98 F 77 20 174/82 H 97 09/04/18 08:45 09/04/18 08:45 09/04/18 08:45 09/04/18 08:45 09/04/18 08:45 - Medications Medications: Current Medications Amlodipine Besylate (Norvasc) 10 mg PO DAILY [facility] Last Admin: 09/03/18 09:20 Dose: 10 mg Calcium Acetate (Phoslo) 667 mg PO TIDCC [facility] Last Admin: 09/04/18 08:46 Dose: 667 mg Carvedilol (Coreg) 12.5 mg PO BID [facility] Last Admin: 09/03/18 18:34 Dose: 12.5 mg Clopidogrel Bisulfate (Plavix) 75 mg PO DAILY [facility] Last Admin: 09/03/18 09:06 Dose: 75 mg Furosemide (Lasix) 80 mg PO DAILY [facility] Last Admin: 09/03/18 09:20 Dose: 80 mg Heparin Sodium (Porcine) (Heparin) 5,000 units SC Q12 [facility] Last Admin: 09/03/18 22:06 Dose: 5,000 units Hydromorphone HCl (Dilaudid) 1 mg IVP Q4 PRN PRN Reason: Pain, severe (8-10) Last Admin: 09/04/18 06:36 Dose: 1 mg Insulin Glargine (Lantus) 25 unit SC HS [facility] Last Admin: 09/03/18 22:06 Dose: 25 units Losartan Potassium (Cozaar) 50 mg PO DAILY [facility] Oxycodone/Acetaminophen (Percocet 5/325 Mg Tab) 1 tab PO Q4H PRN PRN Reason: Pain, moderate (4-7) Stop: 09/05/18 17:36 Last Admin: 09/04/18 08:48 Dose: 1 tab - Labs Labs: 09/03/18 16:56 09/02/18 12:10 PT 11.5 SECONDS (9.7-12.2) 09/02/18 12:10 INR 1.1 09/02/18 12:10 APTT 31 SECONDS (21-34) 09/02/18 12:10 - Constitutional Appears: No Acute Distress, Chronically Ill - Head Exam Head Exam: ATRAUMATIC, NORMAL INSPECTION - Eye Exam Eye Exam: EOMI, Normal appearance - Neck Exam Neck Exam: Normal Inspection. absent: Tenderness - Respiratory Exam Respiratory Exam: Clear to Ausculation Bilateral, NORMAL BREATHING PATTERN - Cardiovascular Exam Cardiovascular Exam: REGULAR RHYTHM, +S1 - GI/Abdominal Exam GI & Abdominal Exam: Soft. absent: Tenderness - Extremities Exam Extremities Exam: Pedal Edema, Tenderness - Neurological Exam Neurological Exam: Awake, CN II-XII Intact - Skin Skin Exam: Dry, Warm Assessment and Plan (1) Atherosclerotic PVD with intermittent claudication Status: Acute (2) Bilateral leg and foot pain Status: Acute (3) ESRD (end stage renal disease) Status: Acute (4) PVD (peripheral vascular disease) Status: Acute (5) Renal transplant, status post Status: Acute (6) CAD (coronary artery disease) Status: Chronic - Assessment and Plan (Free Text) Plan: Same PD Repeat labs For bypass R LE in next few days
[2018-09-04 09:31] LABS: CALCIUM 8.9 mg/dl (8.6-10.4)
[2018-09-04] MEDS ORDERED: Potassium Chloride 10 mEq ER Tab PO STA (12:21)
--- NOTE | 2018-09-04 13:17 | CP.PCM.PN ---
Subjective - Date & Time of Evaluation Date of Evaluation: 09/04/18 Time of Evaluation: 07:00 - Subjective Subjective: VASCULAR SURGERY PROGRESS NOTE FOR DR. FERNÁNDEZ Patient seen and examined at bedside. Reports pain from right knee to foot. Some pain in left foot but less than right. Objective - Vital Signs/Intake and Output Vital Signs (last 24 hours): Temp Pulse Resp BP Pulse Ox 98.2 F 77 20 179/76 H 97 09/04/18 11:16 09/04/18 11:16 09/04/18 11:16 09/04/18 11:16 09/04/18 08:45 - Medications Medications: Current Medications Amlodipine Besylate (Norvasc) 10 mg PO DAILY [facility] Last Admin: 09/04/18 11:05 Dose: 10 mg Calcium Acetate (Phoslo) 667 mg PO TIDCC [facility] Last Admin: 09/04/18 12:42 Dose: 667 mg Carvedilol (Coreg) 12.5 mg PO BID [facility] Last Admin: 09/04/18 11:05 Dose: 12.5 mg Clopidogrel Bisulfate (Plavix) 75 mg PO DAILY [facility] Last Admin: 09/04/18 11:05 Dose: 75 mg Furosemide (Lasix) 80 mg PO DAILY [facility] Last Admin: 09/04/18 11:05 Dose: 80 mg Heparin Sodium (Porcine) (Heparin) 5,000 units SC Q12 [facility] Last Admin: 09/04/18 11:05 Dose: 5,000 units Hydromorphone HCl (Dilaudid) 1 mg IVP Q4 PRN PRN Reason: Pain, severe (8-10) Last Admin: 09/04/18 11:05 Dose: 1 mg Insulin Glargine (Lantus) 25 unit SC HS [facility] Last Admin: 09/03/18 22:06 Dose: 25 units Losartan Potassium (Cozaar) 50 mg PO DAILY [facility] Last Admin: 09/04/18 11:05 Dose: 50 mg Oxycodone/Acetaminophen (Percocet 5/325 Mg Tab) 1 tab PO Q4H PRN PRN Reason: Pain, moderate (4-7) Stop: 09/05/18 17:36 Last Admin: 09/04/18 12:59 Dose: 1 tab - Labs Labs: 09/03/18 16:56 09/04/18 09:10 PT 11.5 SECONDS (9.7-12.2) 09/02/18 12:10 INR 1.1 09/02/18 12:10 APTT 31 SECONDS (21-34) 09/02/18 12:10 - Constitutional Appears: Non-toxic, No Acute Distress - Head Exam Head Exam: ATRAUMATIC, NORMAL INSPECTION - Eye Exam Eye Exam: EOMI, Normal appearance - Respiratory Exam Respiratory Exam: NORMAL BREATHING PATTERN. absent: Respiratory Distress - Cardiovascular Exam Cardiovascular Exam: +S1, +S2 - GI/Abdominal Exam GI & Abdominal Exam: Soft. absent: Tenderness - Extremities Exam Additional comments: Right foot cooler than left Assessment and Plan - Assessment and Plan (Free Text) Assessment: 63yo M with high grade stenosis of proximal SFA and complete occlusion of SFA w/ popliteal reconstitution with PT and peroneal runoff s/p angio on 09/02. - Plan for OR tomorrow for right fem-pop bypass - NPO past midnight - Heparin held in AM - Type and cross 2 units - Discussed with Dr. Joyner, pt cleared for OR - Discussed plan with Dr. Radhika Ambrosio PGY-4
--- NOTE | 2018-09-04 18:18 | PN ---
DATE: 09/04/2018 SUBJECTIVE: The patient is still experiencing steady and persistent right foot pain. No retrosternal chest pain or shortness of breath. PHYSICAL EXAMINATION: VITAL SIGNS: Blood pressure 179/76, heart rate 77, temperature 98.2, respirations 20. HEENT: Normocephalic. CHEST: Clear. HEART: S1 and S2, regular. EXTREMITIES: Blanching of the right forefoot with cyanotic changes of the right big toe. LABORATORY DATA: Today's SMA-7: Sodium 135, potassium 3.5, chloride 95, CO2 of 31, glucose 165, BUN 37, creatinine 5.4. Lexiscan performed yesterday revealed a large anterior scar with a small area of moderate lateral ischemia. Ejection fraction was measured as 45%. ASSESSMENT: 1. Peripheral vascular disease with acute ischemic changes involving the right foot and the right big toe with persistent pain. 2. Coronary artery disease with history of coronary stenting in the past and positive recent Lexiscan with a large scar and a small area of moderate lateral ischemia. 3. Endstage renal disease, on peritoneal dialysis. 4. Mild hypokalemia. RECOMMENDATIONS: Continue Coreg 12.5 mg once a day, Cozaar 50 mg once a day, Norvasc 10 mg once a day, Lasix 80 mg p.o. once a day, Plavix 75 mg once a day. I will administer one dose of K-Dur 10 mEq today. Follow up BMP in a.m. If normal kalemic, the patient can undergo his urgent right femoral-popliteal bypass surgery with [id number] cardiac risk with close preoperative blood pressures monitoring and postoperative ICU monitoring. The clinical scenario does not allow for coronary revascularization, and the patient accepted the cardiac risk for his urgent femoral-popliteal bypass surgery schedule tomorrow morning. Braulio Joyner MD
[2018-09-04] MEDS: (Lantus) Insulin Glargine, Recombinant SC SCH (21:48)
[2018-09-05] MEDS: HYDROmorphone 1 mg/ml ISec IVP PRN ×2 (03:15→18:34)
[2018-09-05 05:03] LABS: CALCIUM 8.8 mg/dl (8.6-10.4)
[2018-09-05] MEDS ORDERED: Propofol 10 mg/ml Inj (20 ML) ONE (07:07)
[2018-09-05] MEDS ORDERED: Midazolam 2 MG/2 ML VIAL ONE (07:07)
[2018-09-05] MEDS ORDERED: Bacitracin 50,000 UNIT in Sodium Chloride 0.9% Irrig 1,000 ML IR SCH (07:45)
[2018-09-05] MEDS ORDERED: ceFAZolin IV 1 gm in Dextrose 2 GM/100 ML BAG IVPB ONE (07:54)
[2018-09-05] MEDS ORDERED: Lidocaine Hydrochloride 0 ML INJ ONE (07:55)
[2018-09-05] MEDS ORDERED: HEPARIN-NS 5,000 UNITS/500 ML 10,000 UNIT/1,000 ML BAG IV ONE (07:55)
[2018-09-05] MEDS ORDERED: Iohexol 240 200 ML ONE (07:55)
[2018-09-05] MEDS: Papaverine Hydrochloride 30 mg/ml (2ml) ONE ×2 (10:03→10:21)
[2018-09-05] MEDS ORDERED: Papaverine Hydrochloride 30 mg/ml (2ml) ONE (10:08)
[2018-09-05] MEDS ORDERED: HEPARIN-NS 5,000 UNITS/500 ML 5,000 UNIT/500 ML BAG IV ONE ×2 (10:22→12:42)
--- NOTE | 2018-09-05 10:48 | CP.PCM.PN ---
Subjective - Date & Time of Evaluation Date of Evaluation: 09/05/18 Time of Evaluation: 10:46 - Subjective Subjective: Has now gone for fem pop bypass on right PD has been going well HTN controlled Hg stable Objective - Vital Signs/Intake and Output Vital Signs (last 24 hours): Temp Pulse Resp BP Pulse Ox 98.6 F 76 20 156/67 H 96 09/05/18 06:46 09/05/18 06:46 09/05/18 06:46 09/05/18 06:47 09/05/18 06:46 Intake and Output: 09/05/18 09/05/18 06:59 18:59 Intake Total 550 Balance 550 - Medications Medications: Current Medications Amlodipine Besylate (Norvasc) 10 mg PO DAILY [facility] Last Admin: 09/04/18 11:05 Dose: 10 mg Calcium Acetate (Phoslo) 667 mg PO TIDCC [facility] Last Admin: 09/05/18 07:56 Dose: Not Given Carvedilol (Coreg) 12.5 mg PO BID [facility] Last Admin: 09/05/18 06:47 Dose: 12.5 mg Clopidogrel Bisulfate (Plavix) 75 mg PO DAILY [facility] Last Admin: 09/04/18 11:05 Dose: 75 mg Furosemide (Lasix) 80 mg PO DAILY [facility] Last Admin: 09/04/18 11:05 Dose: 80 mg Heparin Sodium (Porcine) (Heparin) 5,000 units SC Q12 [facility] Last Admin: 09/04/18 21:47 Dose: 5,000 units Hydromorphone HCl (Dilaudid) 1 mg IVP Q4 PRN PRN Reason: Pain, severe (8-10) Last Admin: 09/05/18 03:15 Dose: 1 mg Insulin Glargine (Lantus) 25 unit SC HS [facility] Last Admin: 09/04/18 21:48 Dose: 25 units Losartan Potassium (Cozaar) 50 mg PO DAILY [facility] Last Admin: 09/05/18 04:03 Dose: 50 mg Oxycodone/Acetaminophen (Percocet 5/325 Mg Tab) 1 tab PO Q4H PRN PRN Reason: Pain, moderate (4-7) Stop: 09/05/18 17:36 Last Admin: 09/04/18 21:25 Dose: 1 tab - Labs Labs: 09/03/18 16:56 09/05/18 04:31 PT 11.5 SECONDS (9.7-12.2) 09/02/18 12:10 INR 1.1 09/02/18 12:10 APTT 31 SECONDS (21-34) 09/02/18 12:10 - Constitutional Appears: No Acute Distress, Chronically Ill - Head Exam Head Exam: ATRAUMATIC, NORMAL INSPECTION - Eye Exam Eye Exam: EOMI, Normal appearance - Neck Exam Neck Exam: Normal Inspection. absent: Tenderness - Respiratory Exam Respiratory Exam: Clear to Ausculation Bilateral, NORMAL BREATHING PATTERN - Cardiovascular Exam Cardiovascular Exam: REGULAR RHYTHM, +S1 - GI/Abdominal Exam GI & Abdominal Exam: Tenderness. absent: Soft - Extremities Exam Extremities Exam: Normal Inspection. absent: Tenderness - Neurological Exam Neurological Exam: Awake, CN II-XII Intact - Skin Skin Exam: Dry, Warm Assessment and Plan (1) Atherosclerotic PVD with intermittent claudication Status: Acute (2) Bilateral leg and foot pain Status: Acute (3) ESRD (end stage renal disease) Status: Acute (4) PVD (peripheral vascular disease) Status: Acute (5) Renal transplant, status post Status: Acute (6) CAD (coronary artery disease) Status: Chronic - Assessment and Plan (Free Text) Plan: Fem pop bypass now on right Replete K when possible Same PD when OR time over
[2018-09-05 11:05] LABS: ABG ALLEN TEST POS; ARTERIAL BLOOD GAS HCO3 27.5 mmol/L (21-28); ARTERIAL BLOOD GAS O2 SAT 99.2 % (95-98); ARTERIAL BLOOD GAS PCO2 45 mm/Hg (35-45); ARTERIAL BLOOD GAS PH 7.41 (7.35-7.45); ARTERIAL BLOOD GAS PO2 338 mm/Hg (80-100); ARTERIAL BLOOD GAS TCO2 29.9 mmol/L (22-28)
[2018-09-05] MEDS ORDERED: Thrombin Topical 20,000 Intl Units Spray Kit TOP ONE (12:54)
[2018-09-05] MEDS ORDERED: Etomidate 20 mg/10ml Inj IV ONE (13:21)
[2018-09-05] MEDS ORDERED: Lidocaine Hydrochloride 5 ML INJ ONE (13:21)
[2018-09-05] MEDS ORDERED: Neostigmine Methylsulfate 3mg/3ml Syringe IV ONE (13:21)
[2018-09-05] MEDS ORDERED: Rocuronium 10 mg/ml (10 ml) ONE (13:22)
[2018-09-05] MEDS ORDERED: Phenylephrine 10 mg/ml Inj ONE (13:22)
--- NOTE | 2018-09-05 13:36 | PCM.SURG1 ---
<Adria Lacy - Last Filed: 09/06/18 06:14> Surgeon's Initial Post Op Note - Surgeon's Notes Surgeon: Dr. Garrido Blister Packing Machine Tender: Dr. Lacy Type of Anesthesia: General Endo Pre-Operative Diagnosis: PAD Operative Findings: See operative dictation Post-Operative Diagnosis: PAD Operation Performed: Right femoral popliteal bypass with reversed saphenous vein graft, Atherectomy of right common femoral and external iliac with balloon angioplasty of external iliac Specimen/Specimens Removed: vein, clot Estimated Blood Loss: EBL {In ML}: 300 Blood Products Given: N/A Drains Used: No Drains Post-Op Condition: Good Date of Surgery/Procedure: 09/05/18 Time of Surgery/Procedure: 13:36 <Isidro Garrido Jr. - Last Filed: 09/06/18 10:52> Surgeon's Initial Post Op Note - Surgeon's Notes Operation Performed: right femoral popliteal bypass with reversed saphenous vein. above description inaccurate. of right common femoral and external iliac arery. balloon angioplasty of external iliac and common femoral artery. multiple angiograms. MEGHAN Garrido MD
--- NOTE | 2018-09-05 13:40 | RAD ---
Date of service: 09/05/2018 PROCEDURE: Intraoperative Fluoroscopy. HISTORY: RIGHT PERIPHERAL ARTERY DISEASE FINDINGS: Fluoroscopic assistance was provided. Fluoroscopy time = 100.7 sec. Radiation dose = 0.20751 mGy-cm. Please refer to the operative report from MARI Mullins.
[2018-09-05] MEDS: HYDROmorphone 0.5 mg/0.5 ml ISec IVP PRN ×4 (13:52→15:35)
[2018-09-05] MEDS ORDERED: HYDROmorphone 0.5 mg/0.5 ml ISec IVP PRN (14:07)
[2018-09-05 14:16] LABS: BASO # 0.1 K/uL (0.0-0.2); BASO % 0.6 % (0.0-2.0); EOS # 0.3 K/uL (0.0-0.7); EOS % 3.5 % (0.0-4.0); HEMOGLOBIN 10.6 g/dL (12.0-18.0); LYMPH # 1.6 K/uL (1.0-4.3); LYMPH % 18.7 % (20.0-40.0); MEAN CELL VOLUME 89.8 fL (80.0-94.0); MEAN CORPUSCULAR HEMOGLOBIN 30.5 pg (27.0-31.0); MEAN PLATELET VOLUME 10.2 fL (7.2-11.7); MONO # 0.7 K/uL (0.0-0.8); MONO % 8.5 % (0.0-10.0); NEUT % 68.7 % (50.0-75.0); RBC 3.47 Mil/uL (4.40-5.90); RED CELL DISTRIBUTION WIDTH 15.2 % (11.5-14.5); WHITE BLOOD COUNT 8.7 K/uL (4.8-10.8)
[2018-09-05 14:43] LABS: ALBUMIN 2.5 g/dL (3.5-5.0); CALCIUM 7.8 mg/dl (8.6-10.4)
[2018-09-05] MEDS ORDERED: HYDROmorphone 1 mg/ml ISec ONE (16:31)
[2018-09-05] MEDS ORDERED: Nitroglycerin 50mg in D5W 50 MG/250 ML BOTTLE IV SCH (17:15)
--- NOTE | 2018-09-05 17:22 | CP.PCM.CON ---
History of Present Illness - History of Present Illness History of Present Illness: 63 y/o male with pmx of CAD, PVD, long history of smoking, h/o kidney failure, on HD and peritoneal HD. Patient post right lower leg bypass. Patient seen post Procedure. c/o pain in right lower leg, denies any chest pain, denies any abd ominal pain. patient not able to move right lower leg toes. ROS: pain right lower foot Psh: h/o OKT Pmx: cAD/PVD/HTN/ESRD on PD, h/o COPD SH: does not work, denies any illicit drugs Review of Systems - Review of Systems All systems: reviewed and no additional remarkable complaints except - Constitutional Constitutional: As Per HPI Past Patient History - Infectious Disease Hx of Infectious Diseases: None - Past Medical History & Family History Past Medical History?: Yes - Past Social History Smoking Status: Heavy Smoker > 10 Cigarettes Daily Chewing Tobacco Use: No Cigar Use: No Alcohol: Occasional Drugs: Denies Home Situation {Lives}: With Family Domestic Violence: Negative - CARDIAC Hx Cardiac Disorders: Yes Hx Angina: Yes (2007) Hx Congestive Heart Failure: Yes (2007) Hx Heart Attack: Yes (2007) Hx Hypertension: Yes Hx Peripheral Vascular Disease: Yes Other/Comment: HX: LEFT CAROTID STENOSIS - PULMONARY Hx Respiratory Disorders: No - NEUROLOGICAL Hx Neurological Disorder: No - HEENT Hx HEENT Problems: No - RENAL Hx Chronic Kidney Disease: Yes Type of Dialysis Access: peritoneal Date of Last Dialysis Treatment: 09/01/18 Hx Renal Failure: Yes Other/Comment: kidney transplant 2009 failed - ENDOCRINE/METABOLIC Hx Endocrine Disorders: Yes Hx Diabetes Mellitus Type 2: Yes - HEMATOLOGICAL/ONCOLOGICAL Hx Blood Disorders: No - INTEGUMENTARY Hx Dermatological Problems: No - MUSCULOSKELETAL/RHEUMATOLOGICAL Hx Musculoskeletal Disorders: Yes Hx Falls: No Hx Fractures: Yes (left arm contracture post) - GASTROINTESTINAL Hx Gastrointestinal Disorders: Yes Hx Gastroesophageal Reflux: Yes - GENITOURINARY/GYNECOLOGICAL Hx Genitourinary Disorders: Yes (KIDNEY TRANSPLANT 2009 failed) - PSYCHIATRIC Hx Psychophysiologic Disorder: No Hx Substance Use: No - SURGICAL HISTORY Hx Surgeries: Yes Hx Angiogram: Yes Hx Arteriovenous Shunt: Yes (left) Hx Cardiac Catheterization: Yes Hx Carotid Endarterectomy: Yes Hx Coronary Stent: Yes (2007) Hx Kidney Transplant: Yes (2008) Hx Vascular Access Device: Yes (perma cath insertion and removal) Other/Comment: techkoff catheter insertion - ANESTHESIA Hx Anesthesia: Yes Hx Anesthesia Reactions: No Hx Malignant Hyperthermia: No Has any member of the family had a problem w/ anesthesia?: No Meds Allergies/Adverse Reactions: Allergies Allergy/AdvReac Type Severity Reaction Status Date / Time No Known Allergies Allergy Verified 10/04/17 07:33 - Medications Medications: Current Medications Amlodipine Besylate (Norvasc) 10 mg PO DAILY [facility] Last Admin: 09/05/18 10:00 Dose: Not Given Calcium Acetate (Phoslo) 667 mg PO TIDCC [facility] Last Admin: 09/05/18 12:00 Dose: Not Given Carvedilol (Coreg) 25 mg PO BID [facility] Clopidogrel Bisulfate (Plavix) 75 mg PO DAILY [facility] Last Admin: 09/05/18 10:00 Dose: Not Given Furosemide (Lasix) 80 mg PO DAILY [facility] Last Admin: 09/05/18 10:00 Dose: Not Given Gabapentin (Neurontin) 100 mg PO TID [facility] Heparin Sodium (Porcine) (Heparin) 5,000 units SC Q12 [facility] Last Admin: 09/04/18 21:47 Dose: 5,000 units Hydromorphone HCl (Dilaudid) 0.5 mg IVP Q3H PRN PRN Reason: Pain, moderate (4-7) Hydromorphone HCl (Dilaudid) 1 mg IVP Q2H PRN PRN Reason: Pain, severe (8-10) Nicardipine HCl 25 mg/ Sodium (Chloride) 250 mls @ 50 mls/hr IV .Q5H [facility]; Protocol Nitroglycerin/Dextrose (Nitroglycerin 50 Mg/250 Ml D5w) 50 mg in 250 mls @ 1.5 mls/hr IV .Q24H [facility]; Protocol Insulin Glargine (Lantus) 25 unit SC HS [facility] Last Admin: 09/04/18 21:48 Dose: 25 units Losartan Potassium (Cozaar) 50 mg PO DAILY [facility] Last Admin: 09/05/18 10:00 Dose: Not Given Oxycodone/Acetaminophen (Percocet 5/325 Mg Tab) 1 tab PO Q4H PRN PRN Reason: Pain, moderate (4-7) Stop: 09/05/18 17:36 Last Admin: 09/04/18 21:25 Dose: 1 tab Rosuvastatin Calcium (Crestor) 10 mg PO HS [facility] Physical Exam - Head Exam Head Exam: ATRAUMATIC, NORMAL INSPECTION, NORMOCEPHALIC - Eye Exam Eye Exam: EOMI - ENT Exam ENT Exam: Mucous Membranes Moist - Respiratory Exam Respiratory Exam: Clear to Auscultation Bilateral, NORMAL BREATHING PATTERN - Cardiovascular Exam Cardiovascular Exam: REGULAR RHYTHM, +S1, +S2 - GI/Abdominal Exam GI & Abdominal Exam: Normal Bowel Sounds - Extremities Exam Additional comments: poor pulses on both feet, PT1+ , Dp 1+ - Neurological Exam Neurological exam: Alert, Oriented x3 - Skin Skin Exam: Normal Color Results - Vital Signs Recent Vital Signs: Last Vital Signs Temp 97.6 F 09/05/18 13:32 Pulse 82 09/05/18 16:08 Resp 15 09/05/18 16:08 BP 153/67 H 09/05/18 16:08 Pulse Ox 100 09/05/18 16:08 - Labs Result Diagrams: 09/06/18 06:23 09/06/18 06:07 Labs: Laboratory Results - last 24 hr 09/04/18 09/04/18 09/05/18 17:18 21:08 04:31 WBC RBC Hgb Hct MCV MCH MCHC RDW Plt Count MPV Neut % (Auto) Lymph % (Auto) Mchenry % (Auto) Eos % (Auto) Baso % (Auto) Neut # (Auto) Lymph # (Auto) Mchenry # (Auto) Eos # (Auto) Baso # (Auto) Puncture Site pCO2 pO2 HCO3 ABG pH ABG Total CO2 ABG O2 Saturation ABG Base Excess Barry Test ABG Potassium A-a O2 Difference Respiratory Index Glucose Lactate FiO2 Sodium 134 Potassium 3.1 L Chloride 97 L Carbon Dioxide 24 Anion Gap 16 BUN 34 H Creatinine 5.1 H Est GFR ( Amer) 14 Est GFR (Non-Af Amer) 11 POC Glucose (mg/dL) 194 H 166 H Random Glucose 221 H Calcium 8.8 Total Bilirubin AST ALT Alkaline Phosphatase Total Protein Albumin Globulin Albumin/Globulin Ratio Arterial Blood Potassium Blood Type Antibody Screen 09/05/18 09/05/18 09/05/18 06:07 06:39 11:02 WBC RBC Hgb Hct MCV MCH MCHC RDW Plt Count MPV Neut % (Auto) Lymph % (Auto) Mchenry % (Auto) Eos % (Auto) Baso % (Auto) Neut # (Auto) Lymph # (Auto) Mchenry # (Auto) Eos # (Auto) Baso # (Auto) Puncture Site R/rad pCO2 45 pO2 338 H HCO3 27.5 ABG pH 7.41 ABG Total CO2 29.9 H ABG O2 Saturation 99.2 H ABG Base Excess 3.2 H Barry Test Pos ABG Potassium 2.7 L A-a O2 Difference 319.0 Respiratory Index 0.9 Glucose 118 H Lactate 1.2 FiO2 100.0 Sodium 138.0 Potassium Chloride 106.0 Carbon Dioxide Anion Gap BUN Creatinine Est GFR ( Amer) Est GFR (Non-Af Amer) POC Glucose (mg/dL) 170 H Random Glucose Calcium Total Bilirubin AST ALT Alkaline Phosphatase Total Protein Albumin Globulin Albumin/Globulin Ratio Arterial Blood Potassium 2.7 L Blood Type A POSITIVE Antibody Screen Negative 09/05/18 09/05/18 13:59 13:59 WBC 8.7 RBC 3.47 L Hgb 10.6 L Hct 31.1 L MCV 89.8 MCH 30.5 MCHC 34.0 RDW 15.2 H Plt Count 136 MPV 10.2 Neut % (Auto) 68.7 Lymph % (Auto) 18.7 L Mchenry % (Auto) 8.5 Eos % (Auto) 3.5 Baso % (Auto) 0.6 Neut # (Auto) 6.0 Lymph # (Auto) 1.6 Mchenry # (Auto) 0.7 Eos # (Auto) 0.3 Baso # (Auto) 0.1 Puncture Site pCO2 pO2 HCO3 ABG pH ABG Total CO2 ABG O2 Saturation ABG Base Excess Barry Test ABG Potassium A-a O2 Difference Respiratory Index Glucose Lactate FiO2 Sodium 136 Potassium 3.3 L Chloride 103 Carbon Dioxide 24 Anion Gap 12 BUN 33 H Creatinine 4.8 H Est GFR ( Amer) 15 Est GFR (Non-Af Amer) 12 POC Glucose (mg/dL) Random Glucose 113 H Calcium 7.8 L Total Bilirubin 0.3 AST 11 L ALT 20 L Alkaline Phosphatase 36 L Total Protein 5.0 L Albumin 2.5 L Globulin 2.5 Albumin/Globulin Ratio 1.0 Arterial Blood Potassium Blood Type Antibody Screen Assessment & Plan - Assessment and Plan (Free Text) Assessment: PVD: post bypass: monitor neuro vacular check q1hrs, pain control (suspect patient is opioid dependent), dilaudid IV PRN -CAD/PVD: will benefit from antiplatelet and statin + av winston blokcer -Chronic diastolic herat failure:avoid fluid overloaded states, continue asa, av noblocker and acei, + statin -HTN: continue all home medicatoins and add cardened = IV nitro to help keep SBP <140 -h/o diabetes; chekc HBA1c to detemrine compliance, continue ISS aspart q6hrs, takes lantus 25 units -dvt ppx heparin sq pud ppx pepcid Patient's overall prognosis poor as patient has severe PVD and suspect CAD with kidney failure. Patient being admitted to ICU for close monitoring check lactic, trop, ck and hba1c multiple diagnostic tests pending. 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
[2018-09-05] MEDS: niCARdipine IV 25 MG in Sodium Chloride 0.9% 240 ML IV SCH ×2 (17:42→21:38)
--- NOTE | 2018-09-05 17:49 | RAD ---
Date of service: 09/05/2018 HISTORY: eval COPD COMPARISON: No prior. FINDINGS: LUNGS: No active pulmonary disease. PLEURA: No significant pleural effusion identified, no pneumothorax apparent. CARDIOVASCULAR: No aortic atherosclerotic calcification present. Potentially magnified cardiac silhouette by frontal technique. Clinically correlate further. Nevertheless, no pulmonary vascular congestion identified. OSSEOUS STRUCTURES: No significant abnormalities. VISUALIZED UPPER ABDOMEN: Normal. OTHER FINDINGS: None. IMPRESSION: No acute pulmonary disease appreciated. No suspicious pattern to overtly indicate COPD at this time. This is not excluded COPD. Clinically correlate further. No acute pulmonary vascular congestion.
[2018-09-05 18:20] LABS: ALBUMIN 2.7 g/dL (3.5-5.0); CALCIUM 8.2 mg/dl (8.6-10.4)
[2018-09-05] MEDS ORDERED: HYDROmorphone 1 mg/ml ISec IVP STA (18:29)
[2018-09-05 18:40] LABS: CK-MB 3.01 ng/mL (0.0-3.38); TROPONIN I 0.158 ng/mL (0.00-0.120)
--- NOTE | 2018-09-05 18:56 | PN ---
DATE: 09/05/2018 SUBJECTIVE: The patient underwent right femoropopliteal bypass surgery saphenous vein graft. The patient underwent arteriogram with right common femoral and external iliac embolectomy with balloon angioplasty of the external iliac artery. He is currently in the recovery room. He is hemodynamically stable. Denies any chest pain or shortness of breath. PHYSICAL EXAMINATION VITAL SIGNS: Blood pressure 156/67, heart rate 76, temperature 98.6, respirations 20. HEENT: Normocephalic. CHEST: Clear. HEART: S1 and S2 regular. LABORATORY DATA: This morning SMA-7: Sodium 134, potassium 3.1, chloride 97, CO2 of 24, glucose 121, BUN 34, creatinine 5.1. ASSESSMENT: 1. History of coronary artery disease with multiple coronary stenting in the past, most recent one was in 2008 with residual inferior wall scar and a small area of lateral wall ischemia on a recent Lexiscan. 2. Status post right femoropopliteal bypass surgery with right external iliac artery embolectomy and balloon angioplasty. 3. End-stage renal disease, on peritoneal dialysis. 4. Hypokalemia. 5. Hypertension. PLAN: The patient will be transferred to ICU once bed is available. Obtain 12-lead EKG and BMP as well as CBC now. The patient is to resume antihypertensive medications upon his arrival to the ICU and replace any hypokalemia. The case was discussed with surgeon, Dr. Garrido, and with the patient's family at the bedside. Braulio Joyner MD
[2018-09-05] MEDS ORDERED: HYDROmorphone 1 mg/ml ISec IVP SCH (19:00)
--- NOTE | 2018-09-05 21:05 | OP ---
PROCEDURE DATE: 09/05/2018 PREOPERATIVE DIAGNOSIS: Ishemic rest pain, right foot. POSTOPERATIVE DIAGNOSIS: Ishemic rest pain, right foot. PROCEDURES CARRIED OUT: 1. Right femoral popliteal bypass with reversed saphenous vein with intraoperative arteriogram. 2. Right femoral and external iliac embolectomy. 3. Balloon angioplasty of external iliac artery and common femoral artery. SURGEON: Isidro Garrido Jr., MD MANAGER TRANSFER: Adria Lacy DO ANESTHESIOLOGIST: Mr. Gallegos and Dr. Alexandre. INDICATIONS: The patient is a 63-year-old man on peritoneal dialysis, failed kidney transplant, multiple previous endovascular procedures, who presented with rest pain in the right foot. OPERATIVE FINDINGS: 1. In the meantime, between the angiogram done on 09/02/2018 and today, the right common femoral and external iliac and superficial femoral artery occluded. 2. The completion arteriogram was satisfactory. 3. Other details will be in the operative report. DESCRIPTION OF PROCEDURE: The patient was given general anesthesia and intravenous antibiotics. Venodyne boots were not applied. An incision was made in the groin exposing the saphenous vein, which we dissected from the groin down to the midcalf. After this had been mobilized and dissected, it should be noted there was a bifid system in the mid portion, which led to some confusion and delay. This was not noted on the preoperative vein mapping. Nonetheless, eventually we had a satisfactory vein, we were able to dissect this out and reverse this and repair it. We then dissected out the popliteal artery, both relatively eventfully. We then based on the previous angiogram dissected out the proximal portion of the superficial femoral artery as our initiation point. This however was thrombosed and initially we were able to easily thrombectomize the distal portion, but the proximal portion did not easily release the clot. We removed a great deal of clot we could not get the entire clot out. There was poor flow into the common femoral and superficial femoral artery. I then placed a 6 -Maori sheath here, took multiple angiograms. There was a residual clot. Eventually, this was able to be retrieved and we completely removed all the clot and had a final completion angiogram that was satisfactory. We then completed the proximal anastomosis. The distal anastomosis of the graph which had been brought through the subsartorial tunnel was then completed and this showed that there was satisfactory flow distally. Now, however, after we had done this, there was a period where there was simply no flow and no Doppler signal through the graft despite a strong pulse in the groin. We then carried out a Joseph embolectomy of the graft again, of the proximal portion, and this resulted in brisk flow down the leg. We then closed the arteriotomy which was quite delicate with 6-0 Prolene sutures. Blood loss up until the point of the embolectomy was minimal, less than 50 mL, but we lost approximately 300 mL in the portion involved in the embolectomy and balloon angioplasty. We then took a final picture. We then reinflated a 6 mm balloon in the external iliac and common femoral, improved with excellent cosmetic results. Then we, as I said, carried out the anastomosis. Unfortunately, at the very beginning of the anastomosis, there was no pulse, but this remedied with the use of an additional embolectomy with excellent clinical results. We then closed the wounds with Monocryl and Vicryl sutures, skin clips, and nylon sutures, and the patient tolerated the procedure uneventfully. Blood loss was 300 mL plus. OPERATION CARRIED OUT: 1. Right femoral-popliteal bypass with reverse saphenous vein with intraoperative arteriogram. 2. Right common femoral and external iliac embolectomy. 3. Balloon angioplasty of the right external iliac and common femoral artery. Isidro Garrido Jr., MD MTDTevin
[2018-09-05] MEDS: (Lantus) Insulin Glargine, Recombinant SC SCH (21:37)
[2018-09-06] MEDS: niCARdipine IV 25 MG in Sodium Chloride 0.9% 240 ML IV SCH ×2 (02:26→07:42)
[2018-09-06 06:30] LABS: HEMOGLOBIN 9.3 g/dL (12.0-18.0); MEAN CELL VOLUME 89.7 fL (80.0-94.0); MEAN CORPUSCULAR HEMOGLOBIN 31.1 pg (27.0-31.0); MEAN CORPUSCULAR HGB CONC 34.7 g/dL (33.0-37.0); MEAN PLATELET VOLUME 10.4 fL (7.2-11.7); RBC 3.01 Mil/uL (4.40-5.90); RED CELL DISTRIBUTION WIDTH 15.3 % (11.5-14.5); WHITE BLOOD COUNT 9.4 K/uL (4.8-10.8)
[2018-09-06 06:37] LABS: ALBUMIN 2.4 g/dL (3.5-5.0); CALCIUM 7.8 mg/dl (8.6-10.4)
[2018-09-06 06:43] LABS: INR 1.3; PROTHROMBIN TIME 13.8 SECONDS (9.7-12.2)
--- NOTE | 2018-09-06 07:50 | CP.PCM.PN ---
Subjective - Date & Time of Evaluation Date of Evaluation: 09/06/18 Time of Evaluation: 07:47 - Subjective Subjective: Vascular Surgery Progress noet for Dr. Garrido This 63M was seen and examined this AM at bedside. Overnight he has been struggling with pain. He continues to have a war foot with palpable dp and tp. Denies any chest pain or SOB. Objective - Vital Signs/Intake and Output Vital Signs (last 24 hours): Temp Pulse Resp BP Pulse Ox 97.8 F 77 21 138/53 L 97 09/06/18 04:00 09/06/18 06:17 09/06/18 06:17 09/06/18 06:17 09/06/18 06:17 Intake and Output: 09/06/18 09/06/18 06:59 18:59 Intake Total 1965 Output Total 320 Balance 1645 - Medications Medications: Current Medications Amlodipine Besylate (Norvasc) 10 mg PO DAILY [facility] Last Admin: 09/05/18 10:00 Dose: Not Given Calcium Acetate (Phoslo) 667 mg PO TIDCC [facility] Last Admin: 09/05/18 18:15 Dose: Not Given Carvedilol (Coreg) 25 mg PO BID [facility] Last Admin: 09/05/18 18:34 Dose: 25 mg Clopidogrel Bisulfate (Plavix) 75 mg PO DAILY [facility] Last Admin: 09/05/18 10:00 Dose: Not Given Furosemide (Lasix) 80 mg PO DAILY [facility] Last Admin: 09/05/18 10:00 Dose: Not Given Gabapentin (Neurontin) 100 mg PO TID [facility] Last Admin: 09/05/18 18:14 Dose: Not Given Heparin Sodium (Porcine) (Heparin) 5,000 units SC Q12 [facility] Last Admin: 09/04/18 21:47 Dose: 5,000 units Hydromorphone HCl (Dilaudid) 0.5 mg IVP Q3H PRN PRN Reason: Pain, moderate (4-7) Hydromorphone HCl (Dilaudid) 1 mg IVP Q2H PRN PRN Reason: Pain, severe (8-10) Last Admin: 09/05/18 18:34 Dose: 1 mg Hydromorphone/Sodium Chloride (Dilaudid Clerk [address]) 6 mg IV Q4H PRN; Protocol PRN Reason: Pain, moderate (4-7) Last Admin: 09/05/18 20:11 Dose: 6 mg Nicardipine HCl 25 mg/ Sodium (Chloride) 250 mls @ 50 mls/hr IV .Q5H [facility]; Protocol Last Admin: 09/06/18 07:42 Dose: 5 mg/hr, 50 mls/hr Nitroglycerin/Dextrose (Nitroglycerin 50 Mg/250 Ml D5w) 50 mg in 250 mls @ 1.5 mls/hr IV .Q24H [facility]; Protocol Last Titration: 09/06/18 04:38 Dose: 0 mcg/min, 0 mls/hr Insulin Glargine (Lantus) 25 unit SC HS [facility] Last Admin: 09/05/18 21:37 Dose: Not Given Losartan Potassium (Cozaar) 50 mg PO DAILY [facility] Last Admin: 09/05/18 10:00 Dose: Not Given Rosuvastatin Calcium (Crestor) 10 mg PO HS [facility] Last Admin: 09/05/18 21:25 Dose: 10 mg - Labs Labs: 09/06/18 06:23 09/06/18 06:07 PT 13.8 SECONDS (9.7-12.2) H 09/06/18 06:30 INR 1.3 09/06/18 06:30 APTT 27 SECONDS (21-34) 09/06/18 06:30 - Constitutional Appears: Non-toxic, No Acute Distress - Head Exam Head Exam: ATRAUMATIC, NORMOCEPHALIC - Eye Exam Eye Exam: EOMI, Normal appearance - ENT Exam ENT Exam: Mucous Membranes Moist - Respiratory Exam Respiratory Exam: NORMAL BREATHING PATTERN - Cardiovascular Exam Cardiovascular Exam: +S1, +S2 - GI/Abdominal Exam GI & Abdominal Exam: Soft. absent: Tenderness - Extremities Exam Additional comments: Right lower extremity dressing clean dry and intact. Dopplerable dp and tp - Neurological Exam Neurological Exam: Alert, Awake - Psychiatric Exam Psychiatric exam: Normal Affect, Normal Mood - Skin Skin Exam: Dry, Intact Assessment and Plan - Assessment and Plan (Free Text) Assessment: 63M POD#1 s/p right fem pop bypass and doing well Ambulate D/C cobb pain control vascular checks further recs per Dr. Radhika Lacy PGY3
[2018-09-06] MEDS ORDERED: Magnesium Sulfate 1 gm in D5W 1 GM/100 ML BAG IVPB ONE (08:19)
[2018-09-06] MEDS: Magnesium Sulfate 1 gm in D5W 1 GM/100 ML BAG IVPB SCH ×2 (10:11→10:55)
[2018-09-06] MEDS: Magnesium Oxide 400 mg Tab UD PO SCH (10:19)
--- NOTE | 2018-09-06 10:55 | CP.PCM.PN ---
Subjective - Date & Time of Evaluation Date of Evaluation: 09/06/18 Time of Evaluation: 10:53 - Subjective Subjective: Patient more awake, alert, pain level lower Objective - Vital Signs/Intake and Output Vital Signs (last 24 hours): Temp Pulse Resp BP Pulse Ox 97.8 F 82 9 L 154/73 H 96 09/06/18 04:00 09/06/18 07:17 09/06/18 07:17 09/06/18 10:19 09/06/18 07:17 Intake and Output: 09/06/18 09/06/18 06:59 18:59 Intake Total 1965 53 Output Total 315 30 Balance 1650 23 - Medications Medications: Current Medications Amlodipine Besylate (Norvasc) 10 mg PO DAILY [facility] Last Admin: 09/06/18 10:19 Dose: 10 mg Calcium Acetate (Phoslo) 667 mg PO TIDCC [facility] Last Admin: 09/06/18 08:48 Dose: 667 mg Carvedilol (Coreg) 25 mg PO BID [facility] Last Admin: 09/06/18 10:18 Dose: 25 mg Clopidogrel Bisulfate (Plavix) 75 mg PO DAILY [facility] Last Admin: 09/06/18 10:19 Dose: 75 mg Furosemide (Lasix) 80 mg PO DAILY [facility] Last Admin: 09/06/18 10:19 Dose: 80 mg Gabapentin (Neurontin) 100 mg PO TID [facility] Last Admin: 09/06/18 10:18 Dose: 100 mg Heparin Sodium (Porcine) (Heparin) 5,000 units SC Q12 [facility] Last Admin: 09/04/18 21:47 Dose: 5,000 units Hydralazine HCl (Apresoline) 10 mg PO QID [facility] Last Admin: 09/06/18 10:23 Dose: 10 mg Hydromorphone HCl (Dilaudid) 0.5 mg IVP Q3H PRN PRN Reason: Pain, moderate (4-7) Hydromorphone HCl (Dilaudid) 1 mg IVP Q2H PRN PRN Reason: Pain, severe (8-10) Last Admin: 09/05/18 18:34 Dose: 1 mg Hydromorphone/Sodium Chloride (Dilaudid Marketing Financial [employer]st) 6 mg IV Q4H PRN; Protocol PRN Reason: Pain, moderate (4-7) Last Admin: 11/23/18 20:11 Dose: 6 mg Insulin Glargine (Lantus) 25 unit SC [facility] Last Admin: 09/05/18 21:37 Dose: Not Given Losartan Potassium (Cozaar) 50 mg PO DAILY [facility] Last Admin: 09/06/18 10:18 Dose: 50 mg Magnesium Oxide (Mag-Ox) 400 mg PO DAILY [facility] Last Admin: 09/06/18 10:19 Dose: 400 mg Rosuvastatin Calcium (Crestor) 10 mg PO [facility] Last Admin: 09/05/18 21:25 Dose: 10 mg - Labs Labs: 09/06/18 06:23 09/06/18 06:07 PT 13.8 SECONDS (9.7-12.2) H 09/06/18 06:30 INR 1.3 09/06/18 06:30 APTT 27 SECONDS (21-34) 09/06/18 06:30 - Head Exam Head Exam: ATRAUMATIC, NORMAL INSPECTION, NORMOCEPHALIC - Respiratory Exam Respiratory Exam: Clear to Ausculation Bilateral, NORMAL BREATHING PATTERN - GI/Abdominal Exam GI & Abdominal Exam: Normal Bowel Sounds - Extremities Exam Additional comments: 1+ PT/DP right lower leg Assessment and Plan - Assessment and Plan (Free Text) Assessment: PVD: post bypass: continue pain control, dilaudid IV PRN -CAD/PVD: will benefit from antiplatelet and statin + av winston blokcer -Chronic diastolic heart failure:avoid fluid overloaded states, continue asa, av noblocker and acei, + statin -HTN: controlled with pain control -PD: continue as per nephrology -h/o diabetes;continue ISS aspart q6hrs, takes lantus 25 units -dvt ppx heparin sq pud ppx pepcid Patient's overall prognosis poor as patient has severe PVD and suspect CAD with kidney failure. 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
--- NOTE | 2018-09-06 11:18 | CP.PCM.PN ---
Subjective - Date & Time of Evaluation Date of Evaluation: 09/06/18 Time of Evaluation: 11:16 - Subjective Subjective: pod #1 still with pain, but more alert refusing CAPD, will start cycler tonight no chest pain no sob no fever no abdominal pain no vomiting no rash no headache no arthralgias no sinus tenderness Objective - Vital Signs/Intake and Output Vital Signs (last 24 hours): Temp Pulse Resp BP Pulse Ox 97.8 F 82 9 L 154/73 H 96 09/06/18 04:00 09/06/18 07:17 09/06/18 07:17 09/06/18 10:19 09/06/18 07:17 Intake and Output: 09/06/18 09/06/18 06:59 18:59 Intake Total 1965 53 Output Total 315 30 Balance 1650 23 - Medications Medications: Current Medications Amlodipine Besylate (Norvasc) 10 mg PO DAILY [facility] Last Admin: 09/06/18 10:19 Dose: 10 mg Calcium Acetate (Phoslo) 667 mg PO TIDCC [facility] Last Admin: 09/06/18 08:48 Dose: 667 mg Carvedilol (Coreg) 25 mg PO BID [facility] Last Admin: 09/06/18 10:18 Dose: 25 mg Clopidogrel Bisulfate (Plavix) 75 mg PO DAILY [facility] Last Admin: 09/06/18 10:19 Dose: 75 mg Furosemide (Lasix) 80 mg PO DAILY [facility] Last Admin: 09/06/18 10:19 Dose: 80 mg Gabapentin (Neurontin) 100 mg PO TID [facility] Last Admin: 09/06/18 10:18 Dose: 100 mg Heparin Sodium (Porcine) (Heparin) 5,000 units SC Q12 [facility] Last Admin: 09/04/18 21:47 Dose: 5,000 units Hydralazine HCl (Apresoline) 10 mg PO QID [facility] Last Admin: 09/06/18 10:23 Dose: 10 mg Hydromorphone HCl (Dilaudid) 0.5 mg IVP Q3H PRN PRN Reason: Pain, moderate (4-7) Hydromorphone HCl (Dilaudid) 1 mg IVP Q2H PRN PRN Reason: Pain, severe (8-10) Last Admin: 09/05/18 18:34 Dose: 1 mg Hydromorphone/Sodium Chloride (Dilaudid [employer]) 6 mg IV Q4H PRN; Protocol PRN Reason: Pain, moderate (4-7) Last Admin: 09/05/18 20:11 Dose: 6 mg Insulin Glargine (Lantus) 25 unit SC [facility] Last Admin: 09/05/18 21:37 Dose: Not Given Losartan Potassium (Cozaar) 50 mg PO DAILY [facility] Last Admin: 09/06/18 10:18 Dose: 50 mg Magnesium Oxide (Mag-Ox) 400 mg PO DAILY [facility] Last Admin: 09/06/18 10:19 Dose: 400 mg Rosuvastatin Calcium (Crestor) 10 mg PO HS [facility] Last Admin: 09/05/18 21:25 Dose: 10 mg - Labs Labs: 09/06/18 06:23 09/06/18 06:07 PT 13.8 SECONDS (9.7-12.2) H 09/06/18 06:30 INR 1.3 09/06/18 06:30 APTT 27 SECONDS (21-34) 09/06/18 06:30 - Constitutional Appears: In Acute Distress, Chronically Ill - Head Exam Head Exam: ATRAUMATIC - Eye Exam Eye Exam: EOMI, Normal appearance - ENT Exam ENT Exam: Mucous Membranes Moist - Neck Exam Neck Exam: Full ROM. absent: Lymphadenopathy - Respiratory Exam Respiratory Exam: NORMAL BREATHING PATTERN. absent: Wheezes - Cardiovascular Exam Cardiovascular Exam: REGULAR RHYTHM. absent: Gallop - GI/Abdominal Exam GI & Abdominal Exam: Soft. absent: Tenderness - Extremities Exam Additional comments: right foot with pulse, warm - Neurological Exam Neurological Exam: Alert, Awake, Oriented x3 Assessment and Plan - Assessment and Plan (Free Text) Assessment: to start cycler PD post op care pain management
--- NOTE | 2018-09-06 20:46 | PN ---
DATE: 09/06/2018 SUBJECTIVE: The patient is awake. His right foot pain has improved. No chest pain. PHYSICAL EXAMINATION: VITAL SIGNS: Blood pressure 154/73, heart rate 82, respirations 18, temperature 97.8. HEENT: Pale conjunctivae. CHEST: Clear. HEART: S1, S2 regular. EXTREMITIES: Warm and pink color of the right foot in contrast to the pallor and coolness preoperatively. LABORATORY DATA: Today's BUN and creatinine 35 and 5.5 respectively. Glucose 169. Today's hemoglobin and hematocrit are 9.3 and 27, white count 9.4, and platelet count 110,000. Postoperative 12-lead EKG revealed sinus rhythm at least 73, T-wave abnormality, consider inferolateral ischemia. ASSESSMENT: 1. Status post right femoropopliteal bypass surgery with angioplasty and embolectomy to the right iliac artery. 2. End-stage renal disease, on peritoneal dialysis. 3. Hypertension. 4. Anemia. 5. Uncontrolled diabetes mellitus. 6. Mild thrombocytopenia, PLAN: Continue hydralazine 10 mg four times a day, Coreg 25 mg once a day, Cozaar 50 mg once a day, Crestor 10 mg once a day, heparin 5000 units subcutaneous every 12 hours, is being on hold until cleared by the surgeon, Lasix 80 mg p.o. once a day, magnesium oxide 400 mg once a day, Norvasc 10 mg once a day. The patient will undergo peritoneal dialysis session tonight. Braulio Joyner MD
[2018-09-06] MEDS: (Lantus) Insulin Glargine, Recombinant SC SCH (23:31)
[2018-09-07 08:15] LABS: BASO # 0.1 K/uL (0.0-0.2); BASO % 0.8 % (0.0-2.0); EOS # 0.1 K/uL (0.0-0.7); EOS % 0.7 % (0.0-4.0); HEMOGLOBIN 10.3 g/dL (12.0-18.0); LYMPH # 0.8 K/uL (1.0-4.3); LYMPH % 7.5 % (20.0-40.0); MEAN CELL VOLUME 89.3 fL (80.0-94.0); MEAN CORPUSCULAR HEMOGLOBIN 30.6 pg (27.0-31.0); MEAN CORPUSCULAR HGB CONC 34.2 g/dL (33.0-37.0); MEAN PLATELET VOLUME 10.2 fL (7.2-11.7); MONO # 1.2 K/uL (0.0-0.8); MONO % 11.7 % (0.0-10.0); NEUT # 8.3 K/uL (1.8-7.0); NEUT % 79.3 % (50.0-75.0); PLATELET COUNT 145 K/uL (130-400); RBC 3.38 Mil/uL (4.40-5.90); RED CELL DISTRIBUTION WIDTH 15.5 % (11.5-14.5); WHITE BLOOD COUNT 10.4 K/uL (4.8-10.8)
[2018-09-07 08:34] LABS: ALBUMIN 2.8 g/dL (3.5-5.0); CALCIUM 8.5 mg/dl (8.6-10.4)
[2018-09-07] MEDS: Magnesium Oxide 400 mg Tab UD PO SCH (10:07)
[2018-09-07 10:12] LABS: TOTAL CELLS COUNTED 100
[2018-09-07 10:13] LABS: ANISOCYTOSIS SLIGHT; EOSINOPHIL 2 % (0-4); LYMPHOCYTE 9 % (20-40); MONOCYTE 11 % (0-10); NEUTROPHIL 78 % (50-75); PLATELET ESTIMATE NORMAL (NORMAL)
[2018-09-07 10:14] LABS: OVALOCYTES SLIGHT
--- NOTE | 2018-09-07 11:10 | CP.PCM.PN ---
Subjective - Date & Time of Evaluation Date of Evaluation: 09/07/18 Time of Evaluation: 11:09 - Subjective Subjective: Vascular Surgery Progress noet for Dr. Garrido This 63M was seen and examined this AM at bedside. No acute events overnight. No longer requiring LOFTSMAN. Received dialysis this AM. He continues to have a warm foot with palpable dp and tp. Denies any chest pain or SOB. Objective - Vital Signs/Intake and Output Vital Signs (last 24 hours): Temp Pulse Resp BP Pulse Ox 98.5 F 93 H 15 157/76 H 100 09/07/18 08:00 09/07/18 09:46 09/07/18 09:00 09/07/18 10:07 09/07/18 09:00 Intake and Output: 09/07/18 09/07/18 06:59 18:59 Intake Total 50 Output Total 300 Balance -250 - Medications Medications: Current Medications Amlodipine Besylate (Norvasc) 10 mg PO DAILY [facility] Last Admin: 09/07/18 10:07 Dose: 10 mg Aspirin (Aspirin Chewable) 81 mg PO DAILY [facility] Calcium Acetate (Phoslo) 667 mg PO TIDCC [facility] Last Admin: 09/07/18 08:10 Dose: 667 mg Carvedilol (Coreg) 25 mg PO BID [facility] Last Admin: 09/06/18 17:38 Dose: 25 mg Clopidogrel Bisulfate (Plavix) 75 mg PO DAILY [facility] Last Admin: 09/07/18 10:07 Dose: 75 mg Furosemide (Lasix) 80 mg PO DAILY [facility] Last Admin: 09/07/18 10:07 Dose: 80 mg Gabapentin (Neurontin) 100 mg PO TID [facility] Last Admin: 09/07/18 10:07 Dose: 100 mg Heparin Sodium (Porcine) (Heparin) 5,000 units SC Q12 [facility] Last Admin: 09/04/18 21:47 Dose: 5,000 units Hydralazine HCl (Apresoline) 10 mg PO QID [facility] Last Admin: 09/07/18 10:08 Dose: 10 mg Hydromorphone HCl (Dilaudid) 0.5 mg IVP Q3H PRN PRN Reason: Pain, moderate (4-7) Hydromorphone HCl (Dilaudid) 1 mg IVP Q2H PRN PRN Reason: Pain, severe (8-10) Last Admin: 09/05/18 18:34 Dose: 1 mg Hydromorphone/Sodium Chloride (Dilaudid Pit Hand) 6 mg IV Q4H PRN; Protocol PRN Reason: Pain, moderate (4-7) Last Admin: 09/05/18 20:11 Dose: 6 mg Insulin Glargine (Lantus) 25 unit SC HS [facility] Last Admin: 09/06/18 23:31 Dose: 25 units Losartan Potassium (Cozaar) 50 mg PO DAILY [facility] Last Admin: 09/06/18 10:18 Dose: 50 mg Magnesium Oxide (Mag-Ox) 400 mg PO DAILY [facility] Last Admin: 09/07/18 10:07 Dose: 400 mg Rosuvastatin Calcium (Crestor) 10 mg PO HS [facility] Last Admin: 09/06/18 23:31 Dose: 10 mg - Labs Labs: 09/07/18 08:10 09/07/18 08:10 PT 13.8 SECONDS (9.7-12.2) H 09/06/18 06:30 INR 1.3 09/06/18 06:30 APTT 27 SECONDS (21-34) 09/06/18 06:30 - Constitutional Appears: Non-toxic, No Acute Distress - Head Exam Head Exam: ATRAUMATIC, NORMOCEPHALIC - Eye Exam Eye Exam: EOMI, Normal appearance - ENT Exam ENT Exam: Mucous Membranes Moist - Respiratory Exam Respiratory Exam: NORMAL BREATHING PATTERN - Cardiovascular Exam Cardiovascular Exam: +S1, +S2 - GI/Abdominal Exam GI & Abdominal Exam: Soft. absent: Tenderness - Extremities Exam Additional comments: Right lower extremity dressing clean dry and intact. Dopplerable dp and tp - Neurological Exam Neurological Exam: Alert, Awake - Psychiatric Exam Psychiatric exam: Normal Affect, Normal Mood - Skin Skin Exam: Dry, Intact Assessment and Plan - Assessment and Plan (Free Text) Assessment: 63M POD#2 s/p right fem pop bypass and doing well Ambulate pain control vascular checks further recs per Dr. Radhika Lacy PGY3
--- NOTE | 2018-09-07 14:40 | PN ---
DATE: 09/07/2018 SUBJECTIVE: The patient denies any chest pain or right foot pain. No reported ventricular arrhythmia. PHYSICAL EXAMINATION: VITAL SIGNS: Blood pressure 157/76, heart rate 93, temperature 98.5, and respirations 15. HEENT: Pale conjunctivae. CHEST: Clear. HEART: S1 and S2 regular. EXTREMITIES: No ischemic changes noted on the right foot. LABORATORY DATA: Hemoglobin and hematocrit 10.3 and 30.2. White count and platelet counts are within normal limit. Today's SMA-7: Sodium 133, potassium 3.3, chloride 93, CO2 of 30, glucose 160, BUN 38, and creatinine 5.7. Yesterday's INR was 1.3. ASSESSMENT: 1. Status post right femoropopliteal bypass surgery as well as right iliac embolectomy and angioplasty. 2. End-stage renal disease, on peritoneal dialysis. 3. Coronary artery disease with positive Myoview stress test for large inferior scar and small lateral ischemia. RECOMMENDATIONS: Continue hydralazine 10 mg four times a day, Coreg 25 mg twice a day, Cozaar 50 mg twice a day, Crestor 10 mg once a day, Lasix 80 mg p.o. daily, magnesium oxide 400 mg daily, and Plavix 75 mg once a day. Resume subcutaneous heparin if okay with Dr. Garrido. Continue Crestor 10 mg once a day. Start aspirin 81 mg once a day. Braulio Joyner MD
[2018-09-07] MEDS: Potassium Chloride 10 mEq ER Tab PO SCH (14:58)
[2018-09-07] MEDS: HYDROmorphone 0.5 mg/0.5 ml ISec IVP PRN ×2 (15:35→19:27)
[2018-09-07] MEDS: Heparin25000 units/250ml 1/2NS 25,000 UNITS/250 ML BAG IV PRN (16:06)
[2018-09-07] MEDS: (Lantus) Insulin Glargine, Recombinant SC SCH (21:09)
[2018-09-07] MEDS: HYDROmorphone 1 mg/ml ISec IVP PRN (23:58)
[2018-09-08] MEDS: Potassium Chloride 10 mEq ER Tab PO SCH (07:44)
--- NOTE | 2018-09-08 08:04 | CP.PCM.PN ---
Subjective - Date & Time of Evaluation Date of Evaluation: 09/08/18 Time of Evaluation: 06:30 - Subjective Subjective: Surgery progress note for Dr. Garrido Pt seen and examined this AM. No adverse events overnight. Patient stood up at bedside with PT yesterday. Patient states pain is improved, denies any fevers, chills, or any other symptoms. Objective - Vital Signs/Intake and Output Vital Signs (last 24 hours): Temp Pulse Resp BP Pulse Ox 98.7 F 85 14 146/71 98 09/08/18 04:00 09/08/18 04:00 09/08/18 04:00 09/08/18 04:01 09/08/18 04:00 Intake and Output: 09/08/18 09/08/18 06:59 18:59 Intake Total 167.7 Balance 167.7 - Medications Medications: Current Medications Amlodipine Besylate (Norvasc) 10 mg PO DAILY [facility] Last Admin: 09/07/18 10:07 Dose: 10 mg Aspirin (Aspirin Chewable) 81 mg PO DAILY [facility] Last Admin: 09/07/18 11:09 Dose: 81 mg Calcium Acetate (Phoslo) 667 mg PO TIDCC [facility] Last Admin: 09/08/18 07:44 Dose: 667 mg Carvedilol (Coreg) 25 mg PO BID [facility] Last Admin: 09/07/18 18:12 Dose: 25 mg Clopidogrel Bisulfate (Plavix) 75 mg PO DAILY [facility] Last Admin: 09/07/18 10:07 Dose: 75 mg Furosemide (Lasix) 80 mg PO DAILY [facility] Last Admin: 09/07/18 10:07 Dose: 80 mg Gabapentin (Neurontin) 100 mg PO TID [facility] Last Admin: 09/07/18 18:12 Dose: 100 mg Hydralazine HCl (Apresoline) 10 mg PO QID [facility] Last Admin: 09/07/18 21:09 Dose: Not Given Hydromorphone HCl (Dilaudid) 0.5 mg IVP Q3H PRN PRN Reason: Pain, moderate (4-7) Last Admin: 09/07/18 19:27 Dose: 0.5 mg Hydromorphone HCl (Dilaudid) 1 mg IVP Q2H PRN PRN Reason: Pain, severe (8-10) Last Admin: 09/07/18 23:58 Dose: 1 mg Heparin Sodium/Sodium Chloride (Heparin 25192 Units/250ml 1/2 Normal Saline) 25,000 units in 250 mls @ 0 mls/hr IV .Q0M PRN; Protocol PRN Reason: PROTOCOL Last Titration: 09/08/18 00:00 Dose: 10 mls/hr Insulin Glargine (Lantus) 25 unit SC HS [facility] Last Admin: 09/07/18 21:09 Dose: 25 units Losartan Potassium (Cozaar) 50 mg PO DAILY [facility] Last Admin: 09/07/18 11:09 Dose: 50 mg Magnesium Oxide (Mag-Ox) 400 mg PO DAILY [facility] Last Admin: 09/07/18 10:07 Dose: 400 mg Potassium Chloride (Klor-Con 10) 10 meq PO BRK [facility] Last Admin: 09/08/18 07:44 Dose: 10 meq Rosuvastatin Calcium (Crestor) 10 mg PO HS [facility] Last Admin: 09/07/18 21:08 Dose: 10 mg - Labs Labs: 09/07/18 08:10 09/07/18 08:10 PT 13.8 SECONDS (9.7-12.2) H 09/06/18 06:30 INR 1.3 09/06/18 06:30 APTT 44 SECONDS (21-34) H D 09/08/18 05:47 - Constitutional Appears: Well, Non-toxic, No Acute Distress - Head Exam Head Exam: ATRAUMATIC, NORMOCEPHALIC - Eye Exam Eye Exam: Normal appearance. absent: Conjunctival injection, Scleral icterus - ENT Exam ENT Exam: Mucous Membranes Moist, Normal Oropharynx - Respiratory Exam Respiratory Exam: NORMAL BREATHING PATTERN. absent: Accessory Muscle Use, Respiratory Distress - Cardiovascular Exam Cardiovascular Exam: RRR - GI/Abdominal Exam GI & Abdominal Exam: Soft. absent: Distended - Extremities Exam Additional comments: Right foot warm, normal color, strong dopplerable TP and DP, leg dressing C/D/I - Neurological Exam Neurological Exam: Alert, Awake, Oriented x3 - Psychiatric Exam Psychiatric exam: Normal Affect, Normal Mood - Skin Skin Exam: Normal Color, Warm Assessment and Plan - Assessment and Plan (Free Text) Assessment: 63M POD#3 s/p Right fem-pop bypass graft Plan: Continue to encourage PT PRN pain medication Continue PO ASA and plavix Will continue to monitor Follow up PT recs for discharge placement Medical management per primary Discussed with Dr. Radhika Preston, PGY2
[2018-09-08] MEDS: Magnesium Oxide 400 mg Tab UD PO SCH (09:37)
--- NOTE | 2018-09-08 11:30 | CP.PCM.PN ---
Subjective - Date & Time of Evaluation Date of Evaluation: 09/08/18 Time of Evaluation: 11:27 - Subjective Subjective: s/p fem pop bypass Less LE pains; has warm foot now Doing PD- no problems reported, all 2.5% diuaneal exchanges K was low- needs repeat labs Objective - Vital Signs/Intake and Output Vital Signs (last 24 hours): Temp Pulse Resp BP Pulse Ox 97.8 F 89 19 157/79 H 98 09/08/18 08:00 09/08/18 08:51 09/08/18 08:00 09/08/18 10:22 09/08/18 08:00 Intake and Output: 09/08/18 09/08/18 06:59 18:59 Intake Total 167.7 240 Balance 167.7 240 - Medications Medications: Current Medications Amlodipine Besylate (Norvasc) 10 mg PO DAILY [facility] Last Admin: 09/08/18 09:38 Dose: 10 mg Aspirin (Aspirin Chewable) 81 mg PO DAILY [facility] Last Admin: 09/08/18 09:37 Dose: 81 mg Calcium Acetate (Phoslo) 667 mg PO TIDCC [facility] Last Admin: 09/08/18 07:44 Dose: 667 mg Carvedilol (Coreg) 25 mg PO BID [facility] Last Admin: 09/08/18 10:22 Dose: 25 mg Clopidogrel Bisulfate (Plavix) 75 mg PO DAILY [facility] Last Admin: 09/08/18 09:37 Dose: 75 mg Furosemide (Lasix) 80 mg PO DAILY [facility] Last Admin: 09/08/18 09:37 Dose: 80 mg Gabapentin (Neurontin) 100 mg PO TID [facility] Last Admin: 09/08/18 09:37 Dose: 100 mg Hydralazine HCl (Apresoline) 10 mg PO QID [facility] Last Admin: 09/08/18 10:22 Dose: 10 mg Hydromorphone HCl (Dilaudid) 0.5 mg IVP Q3H PRN PRN Reason: Pain, moderate (4-7) Last Admin: 09/07/18 19:27 Dose: 0.5 mg Hydromorphone HCl (Dilaudid) 1 mg IVP Q2H PRN PRN Reason: Pain, severe (8-10) Last Admin: 09/07/18 23:58 Dose: 1 mg Heparin Sodium/Sodium Chloride (Heparin 03142 Units/250ml 1/2 Normal Saline) 25,000 units in 250 mls @ 0 mls/hr IV .Q0M PRN; Protocol PRN Reason: PROTOCOL Last Titration: 09/08/18 00:00 Dose: 10 mls/hr Insulin Glargine (Lantus) 25 unit SC HS [facility] Last Admin: 09/07/18 21:09 Dose: 25 units Losartan Potassium (Cozaar) 50 mg PO DAILY [facility] Last Admin: 09/08/18 09:37 Dose: 50 mg Magnesium Oxide (Mag-Ox) 400 mg PO DAILY [facility] Last Admin: 09/08/18 09:37 Dose: 400 mg Potassium Chloride (Klor-Con 10) 10 meq PO BRK [facility] Last Admin: 09/08/18 07:44 Dose: 10 meq Rosuvastatin Calcium (Crestor) 10 mg PO HS [facility] Last Admin: 09/07/18 21:08 Dose: 10 mg - Labs Labs: 09/07/18 08:10 09/07/18 08:10 PT 13.8 SECONDS (9.7-12.2) H 09/06/18 06:30 INR 1.3 09/06/18 06:30 APTT 44 SECONDS (21-34) H D 09/08/18 05:47 - Constitutional Appears: No Acute Distress, Chronically Ill - Head Exam Head Exam: ATRAUMATIC, NORMAL INSPECTION - Eye Exam Eye Exam: EOMI, Normal appearance - Neck Exam Neck Exam: Normal Inspection. absent: Tenderness - Respiratory Exam Respiratory Exam: Clear to Ausculation Bilateral, NORMAL BREATHING PATTERN - Cardiovascular Exam Cardiovascular Exam: REGULAR RHYTHM, +S1 - GI/Abdominal Exam GI & Abdominal Exam: Soft. absent: Tenderness - Extremities Exam Extremities Exam: Normal Inspection. absent: Tenderness - Neurological Exam Neurological Exam: Awake, CN II-XII Intact - Skin Skin Exam: Dry, Warm Assessment and Plan (1) Atherosclerotic PVD with intermittent claudication Status: Acute (2) Bilateral leg and foot pain Status: Acute (3) ESRD (end stage renal disease) Status: Acute (4) PVD (peripheral vascular disease) Status: Acute (5) Renal transplant, status post Status: Acute (6) CAD (coronary artery disease) Status: Chronic - Assessment and Plan (Free Text) Plan: Repeat labs Same PD monitor BP wound care ASA, plavix
[2018-09-08] MEDS: (Novolin R) Insulin Human Regular 100 units/ml vial SC SCH ×3 (12:26→22:06)
[2018-09-08] MEDS: HYDROmorphone 0.5 mg/0.5 ml ISec IVP PRN (13:22)
[2018-09-08 14:18] LABS: HEMOGLOBIN 10.8 g/dL (12.0-18.0); MEAN CELL VOLUME 90.4 fL (80.0-94.0); MEAN CORPUSCULAR HEMOGLOBIN 31.1 pg (27.0-31.0); MEAN CORPUSCULAR HGB CONC 34.4 g/dL (33.0-37.0); RBC 3.48 Mil/uL (4.40-5.90); RED CELL DISTRIBUTION WIDTH 15.1 % (11.5-14.5); WHITE BLOOD COUNT 9.5 K/uL (4.8-10.8)
--- NOTE | 2018-09-08 15:50 | CP.PCM.PN ---
Subjective - Date & Time of Evaluation Date of Evaluation: 09/08/18 Time of Evaluation: 15:48 - Subjective Subjective: doing well needs rehab may be transferred as bed available fu officew 1 week Objective - Vital Signs/Intake and Output Vital Signs (last 24 hours): Temp Pulse Resp BP Pulse Ox 97.9 F 80 14 123/72 98 09/08/18 12:00 09/08/18 12:00 09/08/18 12:00 09/08/18 11:58 09/08/18 08:00 Intake and Output: 09/08/18 09/08/18 06:59 18:59 Intake Total 167.7 240 Balance 167.7 240 - Medications Medications: Current Medications Amlodipine Besylate (Norvasc) 10 mg PO DAILY [facility] Last Admin: 09/08/18 09:38 Dose: 10 mg Aspirin (Aspirin Chewable) 81 mg PO DAILY [facility] Last Admin: 09/08/18 09:37 Dose: 81 mg Calcium Acetate (Phoslo) 667 mg PO TIDCC [facility] Last Admin: 09/08/18 12:28 Dose: 667 mg Carvedilol (Coreg) 25 mg PO BID [facility] Last Admin: 09/08/18 10:22 Dose: 25 mg Clopidogrel Bisulfate (Plavix) 75 mg PO DAILY [facility] Last Admin: 09/08/18 09:37 Dose: 75 mg Furosemide (Lasix) 80 mg PO DAILY [facility] Last Admin: 09/08/18 09:37 Dose: 80 mg Gabapentin (Neurontin) 100 mg PO TID [facility] Last Admin: 09/08/18 13:23 Dose: 100 mg Hydralazine HCl (Apresoline) 10 mg PO QID [facility] Last Admin: 09/08/18 13:23 Dose: 10 mg Hydromorphone HCl (Dilaudid) 0.5 mg IVP Q3H PRN PRN Reason: Pain, moderate (4-7) Last Admin: 09/08/18 13:22 Dose: 0.5 mg Hydromorphone HCl (Dilaudid) 1 mg IVP Q2H PRN PRN Reason: Pain, severe (8-10) Last Admin: 09/07/18 23:58 Dose: 1 mg Heparin Sodium/Sodium Chloride (Heparin 58509 Units/250ml 1/2 Normal Saline) 25,000 units in 250 mls @ 0 mls/hr IV .Q0M PRN; Protocol PRN Reason: PROTOCOL Last Titration: 09/08/18 00:00 Dose: 10 mls/hr Insulin Glargine (Lantus) 25 unit SC HS [facility] Last Admin: 09/07/18 21:09 Dose: 25 units Insulin Human Regular (Novolin R) 0 unit SC ACHS [facility]; Protocol Last Admin: 09/08/18 12:26 Dose: 1 u Losartan Potassium (Cozaar) 50 mg PO DAILY [facility] Last Admin: 09/08/18 09:37 Dose: 50 mg Magnesium Oxide (Mag-Ox) 400 mg PO DAILY [facility] Last Admin: 09/08/18 09:37 Dose: 400 mg Potassium Chloride (Klor-Con 10) 10 meq PO BRK [facility] Last Admin: 09/08/18 07:44 Dose: 10 meq Rosuvastatin Calcium (Crestor) 10 mg PO HS [facility] Last Admin: 09/07/18 21:08 Dose: 10 mg - Labs Labs: 09/08/18 14:14 09/07/18 08:10 PT 13.8 SECONDS (9.7-12.2) H 09/06/18 06:30 INR 1.3 09/06/18 06:30 APTT 44 SECONDS (21-34) H 09/08/18 14:47
[2018-09-08] MEDS: Heparin25000 units/250ml 1/2NS 25,000 UNITS/250 ML BAG IV PRN (16:05)
[2018-09-08 16:13] LABS: ALBUMIN 2.9 g/dL (3.5-5.0); CALCIUM 8.4 mg/dl (8.6-10.4)
--- NOTE | 2018-09-08 16:46 | PN ---
DATE: 09/08/2018 SUBJECTIVE: The patient is still in atrial fibrillation since yesterday with controlled ventricular response. He denies any chest pain, palpitation or dizziness. He is unaware of any history of atrial fibrillation in the past. PHYSICAL EXAMINATION: VITAL SIGNS: Blood pressure 123/72, heart rate 82, temperature 97.9, respirations 16. HEENT: Pale conjunctivae. CHEST: Clear. HEART: S1 and S2 regular. EXTREMITIES: Reversal of right foot ischemic changes. LABORATORY DATA: Yesterday's SMA-7: Sodium 133, potassium 3.3, chloride 93, CO2 30, glucose 160, BUN 38, creatinine 5.7. Today's blood sugars are 260 and 189. Yesterday's EKG revealed atrial fibrillation with rapid ventricular response at rate of 102, LVH with a QRS widening, consider inferolateral ischemic T-wave changes. ASSESSMENT: 1. Status post right femoral-popliteal bypass surgery with right iliac embolectomy and angioplasty. 2. New onset atrial fibrillation. 3. Coronary artery disease status post multiple coronary stenting in the past with evidence of large inferior scar and small lateral wall ischemia. 5. End-stage renal disease, on peritoneal dialysis. 6. Hypokalemia. RECOMMENDATIONS: Case was discussed with the primary physician, Dr. Laci Box, who is back today, and with vascular surgeon, Dr. Garrido. Continue hydralazine 10 mg four times a day, Coreg 25 mg twice a day, aspirin 81 mg once a day, Crestor 10 mg once a day, therapeutic IV heparin regimen for atrial fibrillation, Klor-Con 10 mEq daily, Lasix 80 mg p.o. once a day, magnesium oxide 400 mg daily, Plavix 75 mg daily. The patient will be switched to Eliquis and will be maintained on Eliquis and Plavix therapy which was okay by Dr. Garrido. Braulio Joyner MD
[2018-09-08] MEDS ORDERED: Magnesium Hydroxide Susp 30 ml UD PO PRN (19:28)
--- NOTE | 2018-09-08 19:42 | CARD ---
APPROVED REPORT Date of service: 09/05/2018 EKG Measurement Heart [id number] [place] 150P3 [id number] <Conclusion> Normal sinus rhythm T wave abnormality, consider inferolateral ischemia Abnormal ECG
[2018-09-08] MEDS: HYDROmorphone 1 mg/ml ISec IVP PRN ×2 (20:45→23:34)
[2018-09-08] MEDS: (Lantus) Insulin Glargine, Recombinant SC SCH (22:25)
--- NOTE | 2018-09-09 02:00 | CP.PCM.PN ---
Subjective - Date & Time of Evaluation Date of Evaluation: 09/08/18 - Subjective Subjective: dictated Objective - Vital Signs/Intake and Output Vital Signs (last 24 hours): Temp Pulse Resp BP Pulse Ox 98.6 F 94 H 20 125/65 88 L 09/08/18 16:00 09/08/18 17:12 09/08/18 16:00 09/08/18 17:47 09/08/18 16:00 Intake and Output: 09/08/18 09/09/18 18:59 06:59 Intake Total 1310 Balance 1310 - Medications Medications: Current Medications Amlodipine Besylate (Norvasc) 10 mg PO DAILY [facility] Last Admin: 09/08/18 09:38 Dose: 10 mg Aspirin (Aspirin Chewable) 81 mg PO DAILY [facility] Last Admin: 09/08/18 09:37 Dose: 81 mg Calcium Acetate (Phoslo) 667 mg PO TIDCC [facility] Last Admin: 09/08/18 17:47 Dose: 667 mg Carvedilol (Coreg) 25 mg PO BID [facility] Last Admin: 09/08/18 17:47 Dose: 25 mg Clopidogrel Bisulfate (Plavix) 75 mg PO DAILY [facility] Last Admin: 09/08/18 09:37 Dose: 75 mg Furosemide (Lasix) 80 mg PO DAILY [facility] Last Admin: 09/08/18 09:37 Dose: 80 mg Gabapentin (Neurontin) 100 mg PO TID [facility] Last Admin: 09/08/18 17:47 Dose: 100 mg Hydralazine HCl (Apresoline) 10 mg PO QID [facility] Last Admin: 09/08/18 22:25 Dose: 10 mg Hydromorphone HCl (Dilaudid) 0.5 mg IVP Q3H PRN PRN Reason: Pain, moderate (4-7) Last Admin: 09/08/18 13:22 Dose: 0.5 mg Hydromorphone HCl (Dilaudid) 1 mg IVP Q2H PRN PRN Reason: Pain, severe (8-10) Last Admin: 09/08/18 23:34 Dose: 1 mg Heparin Sodium/Sodium Chloride (Heparin 50381 Units/250ml 1/2 Normal Saline) 25,000 units in 250 mls @ 0 mls/hr IV .Q0M PRN; Protocol PRN Reason: PROTOCOL Last Admin: 09/08/18 16:05 Dose: 12.4 mls/hr Insulin Glargine (Lantus) 25 unit SC [facility] Last Admin: 09/08/18 22:25 Dose: 25 units Insulin Human Regular (Novolin R) 0 unit SC [facility]; Protocol Last Admin: 09/08/18 22:06 Dose: Not Given Losartan Potassium (Cozaar) 50 mg PO DAILY [facility] Last Admin: 09/08/18 09:37 Dose: 50 mg Magnesium Hydroxide (Milk Of Magnesia) 30 ml PO DAILY PRN PRN Reason: Constipation Magnesium Oxide (Mag-Ox) 400 mg PO DAILY [facility] Last Admin: 09/08/18 09:37 Dose: 400 mg Potassium Chloride (Klor-Con 10) 10 meq PO BRK [facility] Last Admin: 09/08/18 07:44 Dose: 10 meq Rosuvastatin Calcium (Crestor) 10 mg PO HS [facility] Last Admin: 09/08/18 22:25 Dose: 10 mg - Labs Labs: 09/08/18 14:14 09/08/18 15:46 PT 13.8 SECONDS (9.7-12.2) H 09/06/18 06:30 INR 1.3 09/06/18 06:30 APTT 43 SECONDS (21-34) H 09/08/18 23:55
[2018-09-09] MEDS: HYDROmorphone 1 mg/ml ISec IVP PRN ×5 (02:18→23:40)
[2018-09-09] MEDS: Potassium Chloride 10 mEq ER Tab PO SCH (08:00)
[2018-09-09] MEDS: (Novolin R) Insulin Human Regular 100 units/ml vial SC SCH ×4 (08:00→22:35)
--- NOTE | 2018-09-09 08:09 | PN ---
DATE: 09/09/2018 SUBJECTIVE: Salvador Mcdonald, is status post bypass in the right leg. At the moment, he denied any cardiopulmonary distress. No shortness of breath. No chest pain. PHYSICAL EXAMINATION: VITAL SIGNS: Blood pressure 125/65, pulse 94, respiratory rate 20, temperature 98.6. LUNGS: Clear. CARDIOVASCULAR SYSTEM: S1 and S2 regular. ABDOMEN: Soft. ASSESSMENT: 1. Status post right lower extremity bypass. 2. Chronic kidney disease, on hemodialysis. 3. Diabetes. PLAN: Continue postoperative care. Monitor patient. Follow up with Surgery. Laci Box MD
--- NOTE | 2018-09-09 10:04 | CP.PCM.PN ---
Subjective - Date & Time of Evaluation Date of Evaluation: 09/09/18 Time of Evaluation: 10:03 - Subjective Subjective: seen and examined s/p fem pop bypass no issues w/ pd, uses cycler at night leg pain improved Objective - Vital Signs/Intake and Output Vital Signs (last 24 hours): Temp Pulse Resp BP Pulse Ox 98.2 F 83 21 146/63 96 09/09/18 04:00 09/09/18 09:00 09/09/18 09:00 09/09/18 08:49 09/09/18 09:00 Intake and Output: 09/09/18 09/09/18 06:59 18:59 Intake Total 487 Output Total 0 Balance 487 - Medications Medications: Current Medications Amlodipine Besylate (Norvasc) 10 mg PO DAILY [facility] Last Admin: 09/08/18 09:38 Dose: 10 mg Aspirin (Aspirin Chewable) 81 mg PO DAILY [facility] Last Admin: 09/08/18 09:37 Dose: 81 mg Calcium Acetate (Phoslo) 667 mg PO TIDCC [facility] Last Admin: 09/08/18 17:47 Dose: 667 mg Carvedilol (Coreg) 25 mg PO BID [facility] Last Admin: 09/08/18 17:47 Dose: 25 mg Clopidogrel Bisulfate (Plavix) 75 mg PO DAILY [facility] Last Admin: 09/08/18 09:37 Dose: 75 mg Furosemide (Lasix) 80 mg PO DAILY [facility] Last Admin: 09/08/18 09:37 Dose: 80 mg Gabapentin (Neurontin) 100 mg PO TID [facility] Last Admin: 09/08/18 17:47 Dose: 100 mg Hydralazine HCl (Apresoline) 10 mg PO QID [facility] Last Admin: 09/08/18 22:25 Dose: 10 mg Hydromorphone HCl (Dilaudid) 0.5 mg IVP Q3H PRN PRN Reason: Pain, moderate (4-7) Last Admin: 09/08/18 13:22 Dose: 0.5 mg Hydromorphone HCl (Dilaudid) 1 mg IVP Q2H PRN PRN Reason: Pain, severe (8-10) Last Admin: 09/09/18 02:18 Dose: 1 mg Heparin Sodium/Sodium Chloride (Heparin 55288 Units/250ml 1/2 Normal Saline) 25,000 units in 250 mls @ 0 mls/hr IV .Q0M PRN; Protocol PRN Reason: PROTOCOL Last Titration: 09/09/18 02:19 Dose: 13.7 mls/hr Insulin Glargine (Lantus) 25 unit SC HS [facility] Last Admin: 09/08/18 22:25 Dose: 25 units Insulin Human Regular (Novolin R) 0 unit SC [facility]; Protocol Last Admin: 09/08/18 22:06 Dose: Not Given Losartan Potassium (Cozaar) 50 mg PO DAILY [facility] Last Admin: 09/08/18 09:37 Dose: 50 mg Magnesium Hydroxide (Milk Of Magnesia) 30 ml PO DAILY PRN PRN Reason: Constipation Magnesium Oxide (Mag-Ox) 400 mg PO DAILY [facility] Last Admin: 09/08/18 09:37 Dose: 400 mg Potassium Chloride (Klor-Con 10) 10 meq PO BRK [facility] Last Admin: 09/08/18 07:44 Dose: 10 meq Rosuvastatin Calcium (Crestor) 10 mg PO HS [facility] Last Admin: 09/08/18 22:25 Dose: 10 mg - Labs Labs: 09/08/18 14:14 09/08/18 15:46 PT 13.8 SECONDS (9.7-12.2) H 09/06/18 06:30 INR 1.3 09/06/18 06:30 APTT 43 SECONDS (21-34) H 09/08/18 23:55 - Constitutional Appears: Non-toxic, No Acute Distress - Head Exam Head Exam: NORMAL INSPECTION, NORMOCEPHALIC - Eye Exam Eye Exam: Normal appearance, PERRL - ENT Exam ENT Exam: Mucous Membranes Moist, Normal Exam - Neck Exam Neck Exam: Full ROM, Normal Inspection - Respiratory Exam Respiratory Exam: Clear to Ausculation Bilateral, NORMAL BREATHING PATTERN - Cardiovascular Exam Cardiovascular Exam: REGULAR RHYTHM, RRR - GI/Abdominal Exam GI & Abdominal Exam: Distended, Soft - Extremities Exam Extremities Exam: Normal Inspection Additional comments: rt leg dressing over calf, warm - Neurological Exam Neurological Exam: Alert, Awake, Oriented x3 - Psychiatric Exam Psychiatric exam: Normal Affect, Normal Mood - Skin Skin Exam: Dry, Intact, Warm Assessment and Plan (1) Atherosclerotic PVD with intermittent claudication Status: Acute (2) ESRD (end stage renal disease) Status: Acute (3) Essential (primary) hypertension Status: Acute (4) PVD (peripheral vascular disease) Status: Acute (5) Diabetes Status: Chronic - Assessment and Plan (Free Text) Assessment: maintain current pd prescription rehab/ ot/pt
[2018-09-09] MEDS: Magnesium Oxide 400 mg Tab UD PO SCH (11:21)
[2018-09-09] MEDS: Pantoprazole 40 mg EC Tab PO SCH (14:51)
--- NOTE | 2018-09-09 15:32 | PN ---
DATE: 09/09/2018 SUBJECTIVE: The patient denies any chest pain or shortness of breath. He is currently in atrial fibrillation with controlled ventricular response. PHYSICAL EXAMINATION VITAL SIGNS: Blood pressure 146/53, heart rate 86, respiration 21, and temperature 98.2. HEENT: Normocephalic. CHEST: Clear. HEART: S1 and S2 regular. EXTREMITIES: No ischemic right foot changes. LABORATORY DATA: Hemoglobin and hematocrit 10.8 and 31.5. White count and platelet count are within normal limits. Today's SMA-7: Sodium 131, potassium 4.2, chloride 92, CO2 29, glucose 168, BUN 45, creatinine 5.9. ASSESSMENT: 1. Status post right femoropopliteal bypass surgery. 2. Persistent atrial fibrillation. 3. History of coronary artery disease with known large inferior scar and lateral wall ischemia. 4. End-stage renal disease on peritoneal dialysis. 5. Improved hypokalemia. 6. Mild left ventricular systolic dysfunction. RECOMMENDATIONS: Continue hydralazine 10 mg four times a day., aspirin 81 mg once a day, Coreg 25 mg once a day, Cozaar 50 mg once a day, Crestor 10 mg once a day. Discontinue intravenous heparin and start Eliquis 2.5 mg twice a day. Continue K-Dur 10 mEq once a day, Lasix 80 mg p.o. once a day, Norvasc 10 mg once a day, Plavix 75 mg once a day. Braulio Joyner MD
--- NOTE | 2018-09-09 21:53 | CP.PCM.PN ---
Subjective - Subjective Subjective: dictated Objective - Vital Signs/Intake and Output Vital Signs (last 24 hours): Temp Pulse Resp BP Pulse Ox 97.6 F 82 12 140/56 L 100 09/09/18 16:00 09/09/18 19:44 09/09/18 19:44 09/09/18 19:44 09/09/18 19:44 Intake and Output: 09/09/18 09/10/18 18:59 06:59 Intake Total 291.1 Output Total 200 Balance 91.1 - Medications Medications: Current Medications Amlodipine Besylate (Norvasc) 10 mg PO DAILY [facility] Last Admin: 09/09/18 11:21 Dose: 10 mg Apixaban (Eliquis) 2.5 mg PO BID [facility] Last Admin: 09/09/18 17:00 Dose: 2.5 mg Aspirin (Aspirin Chewable) 81 mg PO DAILY [facility] Last Admin: 09/09/18 11:22 Dose: 81 mg Calcium Acetate (Phoslo) 667 mg PO TIDCC [facility] Last Admin: 09/09/18 16:58 Dose: 667 mg Carvedilol (Coreg) 25 mg PO BID [facility] Last Admin: 09/09/18 17:03 Dose: 25 mg Clopidogrel Bisulfate (Plavix) 75 mg PO DAILY [facility] Last Admin: 09/09/18 11:21 Dose: 75 mg Furosemide (Lasix) 80 mg PO DAILY [facility] Last Admin: 09/09/18 11:21 Dose: 80 mg Gabapentin (Neurontin) 100 mg PO TID [facility] Last Admin: 09/09/18 17:00 Dose: 100 mg Hydralazine HCl (Apresoline) 10 mg PO QID [facility] Last Admin: 09/09/18 17:00 Dose: 10 mg Hydromorphone HCl (Dilaudid) 0.5 mg IVP Q3H PRN PRN Reason: Pain, moderate (4-7) Last Admin: 09/08/18 13:22 Dose: 0.5 mg Hydromorphone HCl (Dilaudid) 1 mg IVP Q2H PRN PRN Reason: Pain, severe (8-10) Last Admin: 09/09/18 19:15 Dose: 1 mg Insulin Glargine (Lantus) 25 unit SC [facility] Last Admin: 09/08/18 22:25 Dose: 25 units Insulin Human Regular (Novolin R) 0 unit SC [facility]; Protocol Last Admin: 09/09/18 16:57 Dose: Not Given Losartan Potassium (Cozaar) 50 mg PO DAILY [facility] Last Admin: 09/09/18 11:22 Dose: 50 mg Magnesium Hydroxide (Milk Of Magnesia) 30 ml PO DAILY PRN PRN Reason: Constipation Magnesium Oxide (Mag-Ox) 400 mg PO DAILY [facility] Last Admin: 09/09/18 11:21 Dose: 400 mg Pantoprazole Sodium (Protonix Ec Tab) 40 mg PO DAILY [facility] Last Admin: 09/09/18 14:51 Dose: 40 mg Potassium Chloride (Klor-Con 10) 10 meq PO BRK [facility] Last Admin: 09/09/18 08:00 Dose: Not Given Rosuvastatin Calcium (Crestor) 10 mg PO HS [facility] Last Admin: 09/08/18 22:25 Dose: 10 mg - Labs Labs: 09/08/18 14:14 09/08/18 15:46 PT 13.8 SECONDS (9.7-12.2) H 09/06/18 06:30 INR 1.3 09/06/18 06:30 APTT 40 SECONDS (21-34) H 09/09/18 09:51
[2018-09-09] MEDS: (Lantus) Insulin Glargine, Recombinant SC SCH (22:36)
[2018-09-10] MEDS ORDERED: DiphenhydrAMINE 50 mg/ml Inj IVP STA (01:07)
[2018-09-10] MEDS: HYDROmorphone 1 mg/ml ISec IVP PRN ×5 (03:08→21:39)
[2018-09-10] MEDS: (Novolin R) Insulin Human Regular 100 units/ml vial SC SCH ×4 (07:39→22:00)
[2018-09-10] MEDS: Potassium Chloride 10 mEq ER Tab PO SCH (08:00)
[2018-09-10] MEDS: HYDROmorphone 0.5 mg/0.5 ml ISec IVP PRN (08:19)
--- NOTE | 2018-09-10 09:01 | PN ---
DATE: 09/10/2018 SUBJECTIVE: Mr. Mcdonald is postop. He is in ICU. Postop pain in the right leg. There is no open ulcers on the foot. He is being seen by Vascular. No fever. No chills. No chest pain. Stable. PHYSICAL EXAMINATION: VITAL SIGNS: Blood pressure 114/56, pulse 52, respiratory rate 17, temperature 98. LUNGS: Clear. No rales or rhonchi. CARDIOVASCULAR: S1, S2 regular. ABDOMEN: Soft. ASSESSMENT: 1. Diabetes. 2. Chronic kidney disease, on hemodialysis. 3. Peripheral arterial disease status post bypass. 4. Hypertension. PLAN: Postop care. Accu-Chek sliding scale. Blood pressure monitoring. Laci Box MD
[2018-09-10] MEDS: Pantoprazole 40 mg EC Tab PO SCH (11:00)
[2018-09-10] MEDS: Magnesium Oxide 400 mg Tab UD PO SCH (11:00)
--- NOTE | 2018-09-10 13:30 | CP.PCM.PN ---
Subjective - Date & Time of Evaluation Date of Evaluation: 09/10/18 Time of Evaluation: 13:27 - Subjective Subjective: New event of AFib noted; eliquis started PD going well Wounds healing No other complaint Objective - Vital Signs/Intake and Output Vital Signs (last 24 hours): Temp Pulse Resp BP Pulse Ox 98.6 F 95 H 14 127/70 97 09/10/18 08:00 09/10/18 12:00 09/10/18 12:00 09/10/18 11:04 09/10/18 12:00 Intake and Output: 09/10/18 09/10/18 06:59 18:59 Intake Total 240 Output Total 325 Balance -85 - Medications Medications: Current Medications Amlodipine Besylate (Norvasc) 10 mg PO DAILY [facility] Last Admin: 09/10/18 11:00 Dose: 10 mg Apixaban (Eliquis) 2.5 mg PO BID [facility] Last Admin: 09/10/18 11:00 Dose: 2.5 mg Aspirin (Aspirin Chewable) 81 mg PO DAILY [facility] Last Admin: 09/10/18 11:00 Dose: 81 mg Calcium Acetate (Phoslo) 667 mg PO TIDCC [facility] Last Admin: 09/10/18 11:09 Dose: 667 mg Carvedilol (Coreg) 25 mg PO BID [facility] Last Admin: 09/09/18 17:03 Dose: 25 mg Clopidogrel Bisulfate (Plavix) 75 mg PO DAILY [facility] Last Admin: 09/10/18 11:00 Dose: 75 mg Furosemide (Lasix) 80 mg PO DAILY [facility] Last Admin: 09/10/18 11:00 Dose: 80 mg Gabapentin (Neurontin) 100 mg PO TID [facility] Last Admin: 09/10/18 11:00 Dose: 100 mg Hydralazine HCl (Apresoline) 10 mg PO QID [facility] Last Admin: 09/10/18 11:00 Dose: 10 mg Hydromorphone HCl (Dilaudid) 0.5 mg IVP Q3H PRN PRN Reason: Pain, moderate (4-7) Last Admin: 09/10/18 08:19 Dose: 0.5 mg Hydromorphone HCl (Dilaudid) 1 mg IVP Q2H PRN PRN Reason: Pain, severe (8-10) Last Admin: 09/10/18 06:52 Dose: 1 mg Insulin Glargine (Lantus) 25 unit SC [facility] Last Admin: 09/09/18 22:36 Dose: 25 units Insulin Human Regular (Novolin R) 0 unit SC [facility]; Protocol Last Admin: 09/10/18 12:04 Dose: Not Given Losartan Potassium (Cozaar) 50 mg PO DAILY [facility] Last Admin: 09/10/18 11:00 Dose: 50 mg Magnesium Hydroxide (Milk Of Magnesia) 30 ml PO DAILY PRN PRN Reason: Constipation Magnesium Oxide (Mag-Ox) 400 mg PO DAILY [facility] Last Admin: 09/10/18 11:00 Dose: 400 mg Pantoprazole Sodium (Protonix Ec Tab) 40 mg PO DAILY [facility] Last Admin: 09/10/18 11:00 Dose: 40 mg Potassium Chloride (Klor-Con 10) 10 meq PO BRK [facility] Last Admin: 09/10/18 08:00 Dose: Not Given Rosuvastatin Calcium (Crestor) 10 mg PO [facility] Last Admin: 09/09/18 22:33 Dose: 10 mg - Labs Labs: 09/08/18 14:14 09/08/18 15:46 PT 13.8 SECONDS (9.7-12.2) H 09/06/18 06:30 INR 1.3 09/06/18 06:30 APTT 40 SECONDS (21-34) H 09/09/18 09:51 - Constitutional Appears: No Acute Distress, Chronically Ill - Head Exam Head Exam: ATRAUMATIC, NORMAL INSPECTION - Eye Exam Eye Exam: EOMI, Normal appearance - Neck Exam Neck Exam: Normal Inspection. absent: Tenderness - Respiratory Exam Respiratory Exam: Clear to Ausculation Bilateral, NORMAL BREATHING PATTERN - Cardiovascular Exam Cardiovascular Exam: Irregular Rhythm, RRR - GI/Abdominal Exam GI & Abdominal Exam: Soft. absent: Tenderness - Extremities Exam Extremities Exam: Pedal Edema, Tenderness - Neurological Exam Neurological Exam: Awake, CN II-XII Intact - Skin Skin Exam: Dry, Warm Assessment and Plan (1) Atherosclerotic PVD with intermittent claudication Status: Acute (2) Bilateral leg and foot pain Status: Acute (3) ESRD (end stage renal disease) Status: Acute (4) PVD (peripheral vascular disease) Status: Acute (5) Renal transplant, status post Status: Acute (6) CAD (coronary artery disease) Status: Chronic (7) Atrial fibrillation Status: Acute - Assessment and Plan (Free Text) Plan: Same PD Follow labs Wound care Cardiac eval/rx Afib
--- NOTE | 2018-09-10 15:50 | PN ---
DATE: 09/10/2018 SUBJECTIVE: The patient still in atrial fibrillation with controlled ventricular response. She denies any chest pain. No reported hypotension. PHYSICAL EXAMINATION: VITAL SIGNS: Blood pressure 127/70, heart rate 93, temperature 99.4, respirations 19. HEENT: Normocephalic. CHEST: Clear. HEART: S1 and S2 regular. EXTREMITIES: Right foot ischemic changes. LABORATORY DATA: Blood sugar is 148 and 136. ASSESSMENT AND PLAN: 1. Status post right femoropopliteal bypass surgery. 2. Coronary artery disease with history of coronary stenting with evidence of large inferior scar and small vessel ischemia on the most recent nuclear Lexiscan study. 3. End-stage renal disease on peritoneal dialysis. 4. Mild anemia. 5. Persistent atrial fibrillation. 6. Mildly depressed left ventricular systolic function. RECOMMENDATIONS: Continue hydralazine 10 mg four times a day, aspirin 81 mg once a day, Coreg 25 mg twice a day, Cozaar 50 mg once a day, Crestor 10 mg once a day, Eliquis 2.5 mg twice a day, Klor-Con 10 mEq once a day, Lasix 80 mg once a day, Norvasc 10 mg once a day, Plavix 75 mg once a day. Braulio Joyner MD
--- NOTE | 2018-09-10 17:56 | CARD ---
APPROVED REPORT Date of service: 09/07/2018 EKG Measurement Heart [id number] <Conclusion> Atrial fibrillation with premature ventricular or aberrantly conducted complexes Left ventricular hypertrophy with QRS widening ST & T wave abnormality, consider inferolateral ischemia Abnormal ECG
[2018-09-10] MEDS: (Lantus) Insulin Glargine, Recombinant SC SCH (21:30)
--- NOTE | 2018-09-10 22:36 | CP.PCM.PN ---
Subjective - Subjective Subjective: dictated Objective - Vital Signs/Intake and Output Vital Signs (last 24 hours): Temp Pulse Resp BP Pulse Ox 98.8 F 90 18 111/75 95 09/10/18 20:00 09/10/18 22:00 09/10/18 20:00 09/10/18 20:00 09/10/18 14:00 Intake and Output: 09/10/18 09/11/18 18:59 06:59 Intake Total 480 Balance 480 - Medications Medications: Current Medications Amlodipine Besylate (Norvasc) 10 mg PO DAILY [facility] Last Admin: 09/10/18 11:00 Dose: 10 mg Apixaban (Eliquis) 2.5 mg PO BID [facility] Last Admin: 09/10/18 17:27 Dose: 2.5 mg Aspirin (Aspirin Chewable) 81 mg PO DAILY [facility] Last Admin: 09/10/18 11:00 Dose: 81 mg Calcium Acetate (Phoslo) 667 mg PO TIDCC [facility] Last Admin: 09/10/18 17:25 Dose: 667 mg Carvedilol (Coreg) 25 mg PO BID [facility] Last Admin: 09/10/18 17:26 Dose: 25 mg Clopidogrel Bisulfate (Plavix) 75 mg PO DAILY [facility] Last Admin: 09/10/18 11:00 Dose: 75 mg Furosemide (Lasix) 80 mg PO DAILY [facility] Last Admin: 09/10/18 11:00 Dose: 80 mg Gabapentin (Neurontin) 100 mg PO TID [facility] Last Admin: 09/10/18 17:25 Dose: 100 mg Hydralazine HCl (Apresoline) 10 mg PO QID [facility] Last Admin: 09/10/18 21:32 Dose: 10 mg Hydromorphone HCl (Dilaudid) 0.5 mg IVP Q3H PRN PRN Reason: Pain, moderate (4-7) Last Admin: 09/10/18 08:19 Dose: 0.5 mg Hydromorphone HCl (Dilaudid) 1 mg IVP Q2H PRN PRN Reason: Pain, severe (8-10) Last Admin: 09/10/18 21:39 Dose: 1 mg Insulin Glargine (Lantus) 25 unit SC [facility] Last Admin: 09/10/18 21:30 Dose: 25 units Insulin Human Regular (Novolin R) 0 unit SC [facility]; Protocol Last Admin: 09/10/18 17:27 Dose: 2 u Losartan Potassium (Cozaar) 50 mg PO DAILY [facility] Last Admin: 09/10/18 11:00 Dose: 50 mg Magnesium Hydroxide (Milk Of Magnesia) 30 ml PO DAILY PRN PRN Reason: Constipation Magnesium Oxide (Mag-Ox) 400 mg PO DAILY [facility] Last Admin: 09/10/18 11:00 Dose: 400 mg Pantoprazole Sodium (Protonix Ec Tab) 40 mg PO DAILY [facility] Last Admin: 09/10/18 11:00 Dose: 40 mg Potassium Chloride (Klor-Con 10) 10 meq PO BRK [facility] Last Admin: 09/10/18 08:00 Dose: Not Given Rosuvastatin Calcium (Crestor) 10 mg PO HS [facility] Last Admin: 09/10/18 21:34 Dose: 10 mg - Labs Labs: 09/08/18 14:14 09/08/18 15:46 PT 13.8 SECONDS (9.7-12.2) H 09/06/18 06:30 INR 1.3 09/06/18 06:30 APTT 40 SECONDS (21-34) H 09/09/18 09:51
--- NOTE | 2018-09-11 03:01 | PN ---
DATE: 09/10/2018SUBJECTIVE: The patient, Tamara, is in the ICU. He is postop. He has discussed with Dr. Garrido. The patient needs physiotherapy. The patient is mostly in the bed. He is afebrile. No shortness of breath. He has some edema of the right leg. No fever. No chills. Blood sugar is fairly controlled. On hemodialysis. PHYSICAL EXAMINATION: VITAL SIGNS: Blood pressure 122/70, pulse 74, respiratory rate 16, and temperature 98. LUNGS: Clear. No rales. No rhonchi. CARDIVASCULAR SYSTEM: S1 and S2 regular. ABDOMEN: Soft. EXTREMITIES: Right leg, the patient has wound in the middle of the leg from the surgery. ASSESSMENT: 1. Peripheral arterial disease, status post bypass. 2. Chronic kidney disease, on hemodialysis. 3. Diabetes. 4. Hypertension. PLAN: Medical management. Monitor the patient. Lipid-lowering therapy. Blood pressure control Diuretics. Laci Box MD
[2018-09-11] MEDS: (Novolin R) Insulin Human Regular 100 units/ml vial SC SCH ×4 (08:08→21:24)
[2018-09-11] MEDS: Potassium Chloride 10 mEq ER Tab PO SCH (09:00)
--- NOTE | 2018-09-11 09:01 | CP.PCM.PN ---
Subjective - Date & Time of Evaluation Date of Evaluation: 09/11/18 Time of Evaluation: 08:59 - Subjective Subjective: PD going well BP controlled c/o intermittent right foot pain, excisional pains as well no new labs still with afib- VR controlled Objective - Vital Signs/Intake and Output Vital Signs (last 24 hours): Temp Pulse Resp BP Pulse Ox 98.3 F 86 19 119/62 95 09/11/18 07:58 09/11/18 07:56 09/11/18 06:00 09/11/18 04:15 09/10/18 14:00 Intake and Output: 09/11/18 09/11/18 06:59 18:59 Intake Total 240 8000 Output Total 250 1100 Balance -10 6900 - Medications Medications: Current Medications Amlodipine Besylate (Norvasc) 10 mg PO DAILY [facility] Last Admin: 09/10/18 11:00 Dose: 10 mg Apixaban (Eliquis) 2.5 mg PO BID [facility] Last Admin: 09/10/18 17:27 Dose: 2.5 mg Aspirin (Aspirin Chewable) 81 mg PO DAILY [facility] Last Admin: 09/10/18 11:00 Dose: 81 mg Calcium Acetate (Phoslo) 667 mg PO TIDCC [facility] Last Admin: 09/10/18 17:25 Dose: 667 mg Carvedilol (Coreg) 25 mg PO BID [facility] Last Admin: 09/10/18 17:26 Dose: 25 mg Clopidogrel Bisulfate (Plavix) 75 mg PO DAILY [facility] Last Admin: 09/10/18 11:00 Dose: 75 mg Furosemide (Lasix) 80 mg PO DAILY [facility] Last Admin: 09/10/18 11:00 Dose: 80 mg Gabapentin (Neurontin) 100 mg PO TID [facility] Last Admin: 09/10/18 17:25 Dose: 100 mg Hydralazine HCl (Apresoline) 10 mg PO QID [facility] Last Admin: 09/10/18 21:32 Dose: 10 mg Hydromorphone HCl (Dilaudid) 0.5 mg IVP Q3H PRN PRN Reason: Pain, moderate (4-7) Last Admin: 09/10/18 08:19 Dose: 0.5 mg Hydromorphone HCl (Dilaudid) 1 mg IVP Q2H PRN PRN Reason: Pain, severe (8-10) Last Admin: 09/10/18 21:39 Dose: 1 mg Insulin Glargine (Lantus) 25 unit SC [facility] Last Admin: 09/10/18 21:30 Dose: 25 units Insulin Human Regular (Novolin R) 0 unit SC [facility]; Protocol Last Admin: 09/11/18 08:08 Dose: Not Given Losartan Potassium (Cozaar) 50 mg PO DAILY [facility] Last Admin: 09/10/18 11:00 Dose: 50 mg Magnesium Hydroxide (Milk Of Magnesia) 30 ml PO DAILY PRN PRN Reason: Constipation Magnesium Oxide (Mag-Ox) 400 mg PO DAILY [facility] Last Admin: 09/10/18 11:00 Dose: 400 mg Pantoprazole Sodium (Protonix Ec Tab) 40 mg PO DAILY [facility] Last Admin: 09/10/18 11:00 Dose: 40 mg Potassium Chloride (Klor-Con 10) 10 meq PO BRK [facility] Last Admin: 09/10/18 08:00 Dose: Not Given Rosuvastatin Calcium (Crestor) 10 mg PO [facility] Last Admin: 09/10/18 21:34 Dose: 10 mg - Labs Labs: 09/08/18 14:14 09/08/18 15:46 PT 13.8 SECONDS (9.7-12.2) H 09/06/18 06:30 INR 1.3 09/06/18 06:30 APTT 40 SECONDS (21-34) H 09/09/18 09:51 - Constitutional Appears: No Acute Distress, Chronically Ill - Head Exam Head Exam: ATRAUMATIC, NORMAL INSPECTION - Eye Exam Eye Exam: EOMI, Normal appearance - Neck Exam Neck Exam: Normal Inspection. absent: Tenderness - Respiratory Exam Respiratory Exam: Clear to Ausculation Bilateral, NORMAL BREATHING PATTERN - Cardiovascular Exam Cardiovascular Exam: REGULAR RHYTHM, +S1 - GI/Abdominal Exam GI & Abdominal Exam: Soft. absent: Tenderness - Extremities Exam Extremities Exam: Pedal Edema, Tenderness - Neurological Exam Neurological Exam: Awake, CN II-XII Intact - Skin Skin Exam: Dry, Warm Assessment and Plan (1) Atherosclerotic PVD with intermittent claudication Status: Acute (2) Bilateral leg and foot pain Status: Acute (3) ESRD (end stage renal disease) Status: Acute (4) PVD (peripheral vascular disease) Status: Acute (5) Renal transplant, status post Status: Acute (6) CAD (coronary artery disease) Status: Chronic (7) Atrial fibrillation Status: Acute - Assessment and Plan (Free Text) Plan: Same PD Surgical wound care/follow up repeat labs
[2018-09-11] MEDS: HYDROmorphone 1 mg/ml ISec IVP PRN ×3 (09:16→22:39)
[2018-09-11] MEDS: Magnesium Oxide 400 mg Tab UD PO SCH (09:16)
[2018-09-11] MEDS: Pantoprazole 40 mg EC Tab PO SCH (09:16)
[2018-09-11] MEDS ORDERED: Heparin25000 units/250ml 1/2NS 25,000 UNITS/250 ML BAG IV PRN (12:32)
--- NOTE | 2018-09-11 16:58 | PN ---
DATE: 09/11/2018 SUBJECTIVE: The patient is experiencing right foot burning sensation. No chest pain. He is still in atrial fibrillation with controlled ventricular response. PHYSICAL EXAMINATION: VITAL SIGNS: Blood pressure 135/63, heart rate 80, temperature 98.3, and respirations 22. HEENT: Normocephalic. CHEST: Clear. HEART: S1 and S2 regular. EXTREMITIES: No ischemic right foot changes. LABORATORY DATA: Today's blood sugar is 129 and 221 respectively. ASSESSMENT: 1. Status post right femoropopliteal bypass surgery with iliac artery embolectomy and femoral angioplasty. 2. Persistent atrial fibrillation. 3. Coronary artery disease with history of coronary stenting and positive Myoview stress test for lateral ischemia and large inferior scar. 4. Uncontrolled diabetes mellitus. RECOMMENDATIONS: Continue hydralazine 10 mg four times a day, Coreg 25 mg twice a day, aspirin 81 mg once a day, Crestor at 10 mg once a day, Eliquis 2.5 mg twice a day, Lasix 80 mg p.o. once a day, amlodipine at 10 mg once a day, and Plavix 75 mg once a day, started a maintenance dose of intravenous heparin for AFib protocol. Case will be discussed with the primary physician and Dr. Garrido. Braulio Joyner MD
[2018-09-11] MEDS: (Lantus) Insulin Glargine, Recombinant SC SCH (22:27)
--- NOTE | 2018-09-12 00:55 | CP.PCM.PN ---
Subjective - Date & Time of Evaluation Date of Evaluation: 09/11/18 - Subjective Subjective: dictated Objective - Vital Signs/Intake and Output Vital Signs (last 24 hours): Temp Pulse Resp BP Pulse Ox 98.6 F 84 20 116/57 L 98 09/11/18 23:24 09/11/18 23:24 09/11/18 23:24 09/11/18 23:24 09/11/18 23:24 Intake and Output: 09/11/18 09/12/18 18:59 06:59 Intake Total 8000 900 Output Total 1100 Balance 6900 900 - Medications Medications: Current Medications Amlodipine Besylate (Norvasc) 10 mg PO DAILY [facility] Last Admin: 09/11/18 09:16 Dose: 10 mg Apixaban (Eliquis) 2.5 mg PO BID [facility] Last Admin: 09/11/18 17:18 Dose: 2.5 mg Aspirin (Aspirin Chewable) 81 mg PO DAILY [facility] Last Admin: 09/11/18 09:16 Dose: 81 mg Calcium Acetate (Phoslo) 667 mg PO TIDCC [facility] Last Admin: 09/11/18 17:18 Dose: 667 mg Carvedilol (Coreg) 25 mg PO BID [facility] Last Admin: 09/11/18 17:19 Dose: 25 mg Clopidogrel Bisulfate (Plavix) 75 mg PO DAILY [facility] Last Admin: 09/11/18 09:16 Dose: 75 mg Furosemide (Lasix) 80 mg PO DAILY [facility] Last Admin: 09/11/18 09:14 Dose: 80 mg Gabapentin (Neurontin) 100 mg PO TID [facility] Last Admin: 09/11/18 17:18 Dose: 100 mg Hydralazine HCl (Apresoline) 10 mg PO QID [facility] Last Admin: 09/11/18 23:07 Dose: 10 mg Hydromorphone HCl (Dilaudid) 0.5 mg IVP Q3H PRN PRN Reason: Pain, moderate (4-7) Last Admin: 09/10/18 08:19 Dose: 0.5 mg Hydromorphone HCl (Dilaudid) 1 mg IVP Q2H PRN PRN Reason: Pain, severe (8-10) Last Admin: 09/11/18 22:39 Dose: 1 mg Insulin Glargine (Lantus) 25 unit SC [facility] Last Admin: 09/11/18 22:27 Dose: 25 units Insulin Human Regular (Novolin R) 0 unit SC [facility]; Protocol Last Admin: 09/11/18 21:24 Dose: Not Given Losartan Potassium (Cozaar) 50 mg PO DAILY [facility] Last Admin: 09/11/18 09:16 Dose: 50 mg Magnesium Hydroxide (Milk Of Magnesia) 30 ml PO DAILY PRN PRN Reason: Constipation Magnesium Oxide (Mag-Ox) 400 mg PO DAILY [facility] Last Admin: 09/11/18 09:16 Dose: 400 mg Pantoprazole Sodium (Protonix Ec Tab) 40 mg PO DAILY [facility] Last Admin: 09/11/18 09:16 Dose: 40 mg Potassium Chloride (Klor-Con 10) 10 meq PO BRK [facility] Last Admin: 09/11/18 09:00 Dose: Not Given Rosuvastatin Calcium (Crestor) 10 mg PO HS [facility] Last Admin: 09/11/18 22:27 Dose: 10 mg - Labs Labs: 09/08/18 14:14 09/08/18 15:46 PT 13.8 SECONDS (9.7-12.2) H 09/06/18 06:30 INR 1.3 09/06/18 06:30 APTT 40 SECONDS (21-34) H 09/09/18 09:51
--- NOTE | 2018-09-12 06:30 | PN ---
DATE: 09/11/2018 SUBJECTIVE: The patient, Tamara, is on hemodialysis and physiotherapy. Medically, he is stable. He is postop. He is on physiotherapy rehab. No fever. No chills. PHYSICAL EXAMINATION: VITAL SIGNS: Blood pressure is 116/57, pulse 84, respiratory rate 16, and temperature 98.6. LUNGS: Clear. No rale. No rhonchi. CARDIOVASCULAR SYSTEM: S1 and S2 regular. ABDOMEN: Soft. EXTREMITIES: He had right leg bypass. ASSESSMENT AND PLAN: 1. Peripheral arterial disease, status post bypass. 2. Chronic kidney disease, on hemodialysis. 3. Diabetes. 4. Hypertension. PLAN: Continue postop care. Monitor the patient. Laci Box MD
[2018-09-12 08:17] VITALS: RESP 20
[2018-09-12] MEDS: (Novolin R) Insulin Human Regular 100 units/ml vial SC SCH ×2 (08:30→12:30)
[2018-09-12 08:52] LABS: HEMOGLOBIN 9.9 g/dL (12.0-18.0); MEAN CELL VOLUME 89.5 fL (80.0-94.0); MEAN CORPUSCULAR HGB CONC 34.6 g/dL (33.0-37.0); MEAN PLATELET VOLUME 9.3 fL (7.2-11.7); RBC 3.2 Mil/uL (4.40-5.90); RED CELL DISTRIBUTION WIDTH 15.1 % (11.5-14.5); WHITE BLOOD COUNT 8.1 K/uL (4.8-10.8)
[2018-09-12 08:58] LABS: ALB/GLOB RATIO 1.1 (1.0-2.1); ALBUMIN 2.9 g/dL (3.5-5.0); CALCIUM 8.7 mg/dl (8.6-10.4)
[2018-09-12] MEDS: Potassium Chloride 10 mEq ER Tab PO SCH (09:00)
[2018-09-12] MEDS: HYDROmorphone 1 mg/ml ISec IVP PRN (09:10)
[2018-09-12] MEDS: Pantoprazole 40 mg EC Tab PO SCH (09:43)
[2018-09-12] MEDS: Magnesium Oxide 400 mg Tab UD PO SCH (09:43)
[2018-09-12] MEDS ORDERED: Potassium Chloride 20 mEq ER Tab PO ONE (12:30)
[2018-09-12] MEDS ORDERED: Potassium Chloride 10 mEq ER Tab PO ONE (14:00)
--- NOTE | 2018-09-12 14:40 | CP.PCM.PN ---
Subjective - Date & Time of Evaluation Date of Evaluation: 09/12/18 Time of Evaluation: 14:37 - Subjective Subjective: Feels better PD going well HTN cintrolled K low- being repleted wounds healing; less LE pains Objective - Vital Signs/Intake and Output Vital Signs (last 24 hours): Temp Pulse Resp BP Pulse Ox 98.6 F 74 20 114/64 95 09/12/18 08:16 09/12/18 14:06 09/12/18 08:16 09/12/18 14:06 09/12/18 08:16 Intake and Output: 09/12/18 09/12/18 06:59 18:59 Intake Total 900 350 Balance 900 350 - Medications Medications: Current Medications Amlodipine Besylate (Norvasc) 10 mg PO DAILY [facility] Last Admin: 09/12/18 09:43 Dose: 10 mg Apixaban (Eliquis) 2.5 mg PO BID [facility] Last Admin: 09/12/18 09:44 Dose: 2.5 mg Aspirin (Aspirin Chewable) 81 mg PO DAILY [facility] Last Admin: 09/12/18 09:43 Dose: 81 mg Calcium Acetate (Phoslo) 667 mg PO TIDCC [facility] Last Admin: 09/12/18 13:00 Dose: 667 mg Carvedilol (Coreg) 25 mg PO BID [facility] Last Admin: 09/12/18 09:44 Dose: 25 mg Clopidogrel Bisulfate (Plavix) 75 mg PO DAILY [facility] Last Admin: 09/12/18 09:43 Dose: 75 mg Furosemide (Lasix) 80 mg PO DAILY [facility] Last Admin: 09/12/18 09:44 Dose: 80 mg Gabapentin (Neurontin) 100 mg PO TID [facility] Last Admin: 09/12/18 14:06 Dose: 100 mg Hydralazine HCl (Apresoline) 10 mg PO QID [facility] Last Admin: 09/12/18 14:07 Dose: Not Given Hydromorphone HCl (Dilaudid) 0.5 mg IVP Q3H PRN PRN Reason: Pain, moderate (4-7) Last Admin: 09/10/18 08:19 Dose: 0.5 mg Hydromorphone HCl (Dilaudid) 1 mg IVP Q2H PRN PRN Reason: Pain, severe (8-10) Last Admin: 09/12/18 09:10 Dose: 1 mg Insulin Glargine (Lantus) 25 unit SC [facility] Last Admin: 09/11/18 22:27 Dose: 25 units Insulin Human Regular (Novolin R) 0 unit SC [facility]; Protocol Last Admin: 09/12/18 12:30 Dose: Not Given Losartan Potassium (Cozaar) 50 mg PO DAILY [facility] Last Admin: 09/12/18 09:43 Dose: 50 mg Magnesium Hydroxide (Milk Of Magnesia) 30 ml PO DAILY PRN PRN Reason: Constipation Magnesium Oxide (Mag-Ox) 400 mg PO DAILY [facility] Last Admin: 09/12/18 09:43 Dose: 400 mg Pantoprazole Sodium (Protonix Ec Tab) 40 mg PO DAILY [facility] Last Admin: 09/12/18 09:43 Dose: 40 mg Potassium Chloride (Klor-Con 10) 10 meq PO BRK [facility] Last Admin: 09/12/18 09:00 Dose: 10 meq Rosuvastatin Calcium (Crestor) 10 mg PO [facility] Last Admin: 09/11/18 22:27 Dose: 10 mg - Labs Labs: 09/12/18 08:33 09/12/18 08:33 PT 13.8 SECONDS (9.7-12.2) H 09/06/18 06:30 INR 1.3 09/06/18 06:30 APTT 40 SECONDS (21-34) H 09/09/18 09:51 - Constitutional Appears: No Acute Distress, Chronically Ill - Head Exam Head Exam: ATRAUMATIC, NORMAL INSPECTION - Eye Exam Eye Exam: EOMI, Normal appearance - Neck Exam Neck Exam: Normal Inspection. absent: Tenderness - Respiratory Exam Respiratory Exam: Clear to Ausculation Bilateral, NORMAL BREATHING PATTERN - Cardiovascular Exam Cardiovascular Exam: REGULAR RHYTHM, +S1 - GI/Abdominal Exam GI & Abdominal Exam: Soft. absent: Tenderness - Extremities Exam Extremities Exam: Normal Inspection. absent: Tenderness - Neurological Exam Neurological Exam: Awake, CN II-XII Intact - Skin Skin Exam: Dry, Warm Assessment and Plan (1) Atherosclerotic PVD with intermittent claudication Status: Acute (2) Bilateral leg and foot pain Status: Acute (3) ESRD (end stage renal disease) Status: Acute (4) PVD (peripheral vascular disease) Status: Acute (5) Renal transplant, status post Status: Acute (6) CAD (coronary artery disease) Status: Chronic (7) Atrial fibrillation Status: Acute - Assessment and Plan (Free Text) Plan: Same PD replete K Can arrange for outpt PD upon discharge
--- NOTE | 2018-09-12 15:29 | CP.PCM.PN ---
Subjective - Date & Time of Evaluation Date of Evaluation: 09/12/18 Time of Evaluation: 15:29 Objective - Vital Signs/Intake and Output Vital Signs (last 24 hours): Temp Pulse Resp BP Pulse Ox 98.6 F 74 20 114/64 95 09/12/18 08:16 09/12/18 14:06 09/12/18 08:16 09/12/18 14:06 09/12/18 08:16 Intake and Output: 09/12/18 09/12/18 06:59 18:59 Intake Total 900 350 Balance 900 350 - Medications Medications: Current Medications Amlodipine Besylate (Norvasc) 10 mg PO DAILY [facility] Last Admin: 09/12/18 09:43 Dose: 10 mg Apixaban (Eliquis) 2.5 mg PO BID [facility] Last Admin: 09/12/18 09:44 Dose: 2.5 mg Aspirin (Aspirin Chewable) 81 mg PO DAILY [facility] Last Admin: 09/12/18 09:43 Dose: 81 mg Calcium Acetate (Phoslo) 667 mg PO TIDCC [facility] Last Admin: 09/12/18 13:00 Dose: 667 mg Carvedilol (Coreg) 25 mg PO BID [facility] Last Admin: 09/12/18 09:44 Dose: 25 mg Clopidogrel Bisulfate (Plavix) 75 mg PO DAILY [facility] Last Admin: 09/12/18 09:43 Dose: 75 mg Furosemide (Lasix) 80 mg PO DAILY [facility] Last Admin: 09/12/18 09:44 Dose: 80 mg Gabapentin (Neurontin) 100 mg PO TID [facility] Last Admin: 09/12/18 14:06 Dose: 100 mg Hydralazine HCl (Apresoline) 10 mg PO QID [facility] Last Admin: 09/12/18 14:07 Dose: Not Given Hydromorphone HCl (Dilaudid) 0.5 mg IVP Q3H PRN PRN Reason: Pain, moderate (4-7) Last Admin: 09/10/18 08:19 Dose: 0.5 mg Hydromorphone HCl (Dilaudid) 1 mg IVP Q2H PRN PRN Reason: Pain, severe (8-10) Last Admin: 09/12/18 09:10 Dose: 1 mg Insulin Glargine (Lantus) 25 unit SC [facility] Last Admin: 09/11/18 22:27 Dose: 25 units Insulin Human Regular (Novolin R) 0 unit SC [facility]; Protocol Last Admin: 09/12/18 12:30 Dose: Not Given Losartan Potassium (Cozaar) 50 mg PO DAILY [facility] Last Admin: 09/12/18 09:43 Dose: 50 mg Magnesium Hydroxide (Milk Of Magnesia) 30 ml PO DAILY PRN PRN Reason: Constipation Magnesium Oxide (Mag-Ox) 400 mg PO DAILY [facility] Last Admin: 09/12/18 09:43 Dose: 400 mg Pantoprazole Sodium (Protonix Ec Tab) 40 mg PO DAILY [facility] Last Admin: 09/12/18 09:43 Dose: 40 mg Potassium Chloride (Klor-Con 10) 10 meq PO BRK [facility] Last Admin: 09/12/18 09:00 Dose: 10 meq Rosuvastatin Calcium (Crestor) 10 mg PO HS [facility] Last Admin: 09/11/18 22:27 Dose: 10 mg - Labs Labs: 09/12/18 08:33 09/12/18 08:33 PT 13.8 SECONDS (9.7-12.2) H 09/06/18 06:30 INR 1.3 09/06/18 06:30 APTT 40 SECONDS (21-34) H 09/09/18 09:51 Assessment and Plan - Assessment and Plan (Free Text) Assessment: FOLLOW UP WITH DR YAP IN HIS OFFICE -----CALL FOR APPOINTMENT FOLLOW UP WITH DR FERNÁNDEZ IN HIS OFFICE -----CALL FOR APPOINTMENT CONTINUE HOME MEDICATION NEW PRESCRIPTION GIVEN ELIQUIS 2.5 MG PO BID ASA 81 MG PO DAILY LOSARTAN INCREASE TO 50 MG PO DIALY HYDRALAZINE 10 MG PO QID POTASSIUM CHLORIDE 10 MEQ PO DAILY PRN CRESTOR 10 MG PO AT HS PERCOCET ONE TAB PO Q4H PRN FOR PAIN ACTIVITY TOLERATED AND HOME PHYSICAL ORDER PD INSTRUCTED CALL DR YAP OR GO TO THE EMERGENCY ROOM IF SYMPTOM RETURN OR WORSENING
[2018-09-12 15:47] VITALS: BP 110/64; PULSE 80; TEMP 98; O2SAT 97
--- NOTE | 2018-09-12 16:16 | PN ---
DATE: 09/12/2018 SUBJECTIVE: No right foot pain or burning sensation. The patient ambulatory today. No chest pain, dizziness, or palpitation. PHYSICAL EXAMINATION: VITAL SIGNS: Blood pressure 121/64, heart rate 90, temperature 98.6, and respirations 20. HEENT: Normocephalic. CHEST: Clear. HEART: S1 and S2 regular. EXTREMITIES: No ischemic changes in the right foot. LABORATORY DATA: Hemoglobin and hematocrit 9.9 and 28.6. White count and platelet counts are within normal limit. Today's SMA-7: Sodium 137, potassium 3.4, chloride 101, CO2 of 26, glucose 130, BUN 56, and creatinine 6.4. ASSESSMENT: 1. Status post right femoropopliteal bypass surgery as well as embolectomy and balloon angioplasty for the right iliofemoral artery. 2. Persistent atrial fibrillation. 3. History of coronary artery disease with history of coronary stenting, the latest one was in 2008. 4. End-stage renal disease, on peritoneal dialysis. 5. Hypokalemia. RECOMMENDATIONS: Case was discussed with Dr. Garrido. The patient can be discharged on aspirin 81 mg once a day, Eliquis 2.5 mg twice a day, Plavix 75 mg once a day beside Cozaar 50 mg once a day, Crestor 10 mg once a day, K-Dur 10 mEq once a day, Lasix at 80 mg once a day, Norvasc 10 mg once a day. The patient will be given an additional dose of K-Dur 10 mEq orally today. Braulio Joyner MD
--- NOTE | 2018-09-12 23:58 | CP.PCM.DIS ---
Provider - Provider Date of Admission: 09/02/18 17:40 Attending physician: Laci Box MD Consults: 09/02/18 17:33 Physician Consult Routine Comment: Consulting Provider: Laci Box Consulting Physician: Laci Box Reason for Consult: pre op eval 09/02/18 17:35 Physician Consult Routine Comment: Consulting Provider: Douglas Zapata Consulting Physician: Douglas Zapata Reason for Consult: perotoneal dialysis 09/02/18 21:13 Physician Consult Routine Comment: Consulting Provider: Isidro Fernández Jr. Consulting Physician: Isidro Fernández Jr. 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 - Lab Results Lab Results: Micro Results 09/05/18 22:29 Nose MRSA Culture (Admit) - Final MRSA NOT DETECTED Most Recent Lab Values WBC 8.1 K/uL (4.8-10.8) 09/12/18 08:33 RBC 3.20 Mil/uL (4.40-5.90) L 09/12/18 08:33 Hgb 9.9 g/dL (12.0-18.0) L 09/12/18 08:33 Hct 28.7 % (35.0-51.0) L 09/12/18 08:33 MCV 89.5 fL (80.0-94.0) 09/12/18 08:33 MCH 31.0 pg (27.0-31.0) 09/12/18 08:33 MCHC 34.6 g/dL (33.0-37.0) 09/12/18 08:33 RDW 15.1 % (11.5-14.5) H 09/12/18 08:33 Plt Count 255 K/uL (130-400) 09/12/18 08:33 MPV 9.3 fL (7.2-11.7) 09/12/18 08:33 Neut % (Auto) 79.3 % (50.0-75.0) H 09/07/18 08:10 Lymph % (Auto) 7.5 % (20.0-40.0) L 09/07/18 08:10 Ransom % (Auto) 11.7 % (0.0-10.0) H 09/07/18 08:10 Eos % (Auto) 0.7 % (0.0-4.0) 09/07/18 08:10 Baso % (Auto) 0.8 % (0.0-2.0) 09/07/18 08:10 Neut # (Auto) 8.3 K/uL (1.8-7.0) H 09/07/18 08:10 Lymph # (Auto) 0.8 K/uL (1.0-4.3) L 09/07/18 08:10 Ransom # (Auto) 1.2 K/uL (0.0-0.8) H 09/07/18 08:10 Eos # (Auto) 0.1 K/uL (0.0-0.7) 09/07/18 08:10 Baso # (Auto) 0.1 K/uL (0.0-0.2) 09/07/18 08:10 Neutrophils % (Manual) 78 % (50-75) H 09/07/18 08:10 Lymphocytes % (Manual) 9 % (20-40) L 09/07/18 08:10 Monocytes % (Manual) 11 % (0-10) H 09/07/18 08:10 Eosinophils % (Manual) 2 % (0-4) 09/07/18 08:10 Differential Comment 09/03/18 16:56 Platelet Estimate Normal (NORMAL) 09/07/18 08:10 Anisocytosis (manual) Slight 09/07/18 08:10 Ovalocytes Slight 09/07/18 08:10 PT 13.8 SECONDS (9.7-12.2) H 09/06/18 06:30 INR 1.3 09/06/18 06:30 APTT 40 SECONDS (21-34) H 09/09/18 09:51 Plt P2Y12 React Units 231 PRU (194-418) 09/05/18 18:07 Puncture Site R/rad 09/05/18 11:02 pCO2 45 mm/Hg (35-45) 09/05/18 11:02 pO2 338 mm/Hg (80-100) H 09/05/18 11:02 HCO3 27.5 mmol/L (21-28) 09/05/18 11:02 ABG pH 7.41 (7.35-7.45) 09/05/18 11:02 ABG Total CO2 29.9 mmol/L (22-28) H 09/05/18 11:02 ABG O2 Saturation 99.2 % (95-98) H 09/05/18 11:02 ABG Base Excess 3.2 mmol/L (-2.0-3.0) H 09/05/18 11:02 Barry Test Pos 09/05/18 11:02 ABG Potassium 2.7 mmol/L (3.6-5.2) L 09/05/18 11:02 A-a O2 Difference 319.0 mm/Hg 09/05/18 11:02 Respiratory Index 0.9 09/05/18 11:02 Sodium 138.0 mmol/l (132-148) 09/05/18 11:02 Chloride 106.0 mmol/L (98-107) 09/05/18 11:02 Glucose 118 mg/dl (75-110) H 09/05/18 11:02 Lactate 1.2 mmol/L (0.7-2.1) 09/05/18 11:02 FiO2 100.0 % 09/05/18 11:02 Sodium 137 mmol/L (132-148) 09/12/18 08:33 Potassium 3.4 mmol/L (3.6-5.2) L 09/12/18 08:33 Chloride 101 mmol/L (98-107) 09/12/18 08:33 Carbon Dioxide 26 mmol/L (22-30) 09/12/18 08:33 Anion Gap 14 (10-20) 09/12/18 08:33 BUN 56 mg/dL (9-20) H 09/12/18 08:33 Creatinine 6.4 mg/dL (0.8-1.5) H 09/12/18 08:33 Est GFR ( Amer) 11 09/12/18 08:33 Est GFR (Non-Af Amer) 9 09/12/18 08:33 POC Glucose (mg/dL) 83 mg/dL (65-110) 09/12/18 10:54 Random Glucose 130 mg/dL (75-110) H 09/12/18 08:33 Hemoglobin A1c 6.8 % (4.2-6.5) H 09/05/18 17:59 Lactic Acid 1.0 mmol/L (0.7-2.1) 09/05/18 17:59 Calcium 8.7 mg/dl (8.6-10.4) 09/12/18 08:33 Phosphorus 3.2 mg/dL (2.5-4.5) 09/12/18 08:33 Magnesium 1.9 mg/dL (1.6-2.3) 09/12/18 08:33 Total Bilirubin 0.3 mg/dL (0.2-1.3) 09/12/18 08:33 AST 17 U/L (17-59) D 09/12/18 08:33 ALT 15 U/L (21-72) L D 09/12/18 08:33 Alkaline Phosphatase 37 U/L (38-126) L 09/12/18 08:33 CK-MB (Mass) 2.37 ng/mL (0.0-3.38) 09/06/18 06:30 Troponin I 0.1580 ng/mL (0.00-0.120) H* 09/05/18 17:59 Total Protein 5.6 g/dL (6.3-8.3) L 09/12/18 08:33 Albumin 2.9 g/dL (3.5-5.0) L 09/12/18 08:33 Globulin 2.7 gm/dL (2.2-3.9) 09/12/18 08:33 Albumin/Globulin Ratio 1.1 (1.0-2.1) 09/12/18 08:33 Arterial Blood Potassium 2.7 mmol/L (3.6-5.2) L 09/05/18 11:02 Blood Type A POSITIVE 09/05/18 06:07 Antibody Screen Negative 09/05/18 06:07 Discharge Exam - Head Exam Head Exam: ATRAUMATIC, NORMAL INSPECTION Discharge Plan - Discharge Medications Prescriptions: hydrALAZINE [Apresoline] 10 mg PO QID 30 Days tab Aspirin [Aspirin Chewable] 81 mg PO DAILY 30 Days chew Losartan [Cozaar] 50 mg PO DAILY 30 Days tab Rosuvastatin Calcium [Crestor] 10 mg PO HS 30 Days tab Apixaban [Eliquis] 2.5 mg PO BID 30 Days tab Potassium Chloride [Klor-Con 10] 10 meq PO BRK [address] Oxycodone HCl/Acetaminophen [Percocet 10-325 mg Tablet] 1 each PO Q4H PRN #24 tablet PRN Reason: Pain, Moderate (4-7) - Follow Up Plan Condition: GOOD Disposition: HOME/ ROUTINE Instructions: Atrial Fibrillation (DC), Heart Failure, Adult (DC), Diabetes Diet , Apixaban, Hydralazine, Oxycodone and Acetaminophen, Rosuvastatin Additional Instructions: FOLLOW UP WITH DR BOX IN HIS OFFICE -----CALL FOR APPOINTMENT FOLLOW UP WITH DR FERNÁNDEZ IN HIS OFFICE -----CALL FOR APPOINTMENT CONTINUE HOME MEDICATION NEW PRESCRIPTION GIVEN ELIQUIS 2.5 MG PO BID ASA 81 MG PO DAILY LOSARTAN INCREASE TO 50 MG PO DIALY HYDRALAZINE 10 MG PO QID POTASSIUM CHLORIDE 10 MEQ PO DAILY PRN CRESTOR 10 MG PO AT HS PERCOCET ONE TAB PO Q4H PRN FOR PAIN ACTIVITY TOLERATED AND HOME PHYSICAL ORDER PD INSTRUCTED CALL DR BOX OR GO TO THE EMERGENCY ROOM IF SYMPTOM RETURN OR WORSENING Referrals: Douglas Zapata MD [Staff Provider] - Laci Box MD [Staff Provider] - Isidro Fernández Jr., MD [Staff Provider] -
--- NOTE | 2018-09-13 07:11 | DS ---
DISCHARGE DIAGNOSES: 1. Peripheral arterial disease status post right lower extremity bypass. 2. Chronic kidney disease, on hemodialysis. 3. Anemia of chronic kidney disease. 4. Type 2 diabetes. 5. Hypertension. HISTORY OF PRESENT ILLNESS: This is a 63-year-old male with history of type 2 diabetes; hypertension; hyperlipidemia; CKD, on hemodialysis who is compliant with his diet, medication, and followup. He was admitted for right lower extremity arterial occlusion and the patient underwent testing and after initial evaluation, the patient underwent a bypass in the right lower leg. The patient's bypass post op was uneventful. He did not have any complication. He did well and he was for discharge. He will go home on home physiotherapy, ____. He will continue his outpatient hemodialysis and he will be followed up by his PMD. LABORATORY DATA: WBC 8.1, hemoglobin 9.9, hematocrit 28.7, platelets 255,000. Sodium 139, potassium 3.4, chloride 101, bicarb 26, BUN 56, creatinine 6.4, glucose 130. Total protein is a little down at 5.8. CONDITION ON DISCHARGE: Stable. PHYSICAL EXAMINATION: VITAL SIGNS: Blood pressure 110/64, pulse rate 84, respiratory rate 18, temperature 98. PLAN: Discharge the patient. Laci Box MD
== END 2018-09-12 16:45 | disposition home or self-care (01) | DRG 270 ==
LOC: C.SPRAD 11:32 → C.9S 17:40 → C.6T 20:37 → C.9I 09-05 16:08 → C.5S 09-11 21:30
PROVIDERS: ADMIT Internal Medicine; ATTEND Internal Medicine
PROC: 04CH0ZZ Extirpation of Matter from Right External Iliac Artery, Open Approach (ICD-10-PCS; 2018-09-05)
PROC: 04CK0ZZ Extirpation of Matter from Right Femoral Artery, Open Approach (ICD-10-PCS; 2018-09-05)
PROC: 047K3ZZ Dilation of Right Femoral Artery, Percutaneous Approach (ICD-10-PCS; 2018-09-05)
PROC: 047H3ZZ Dilation of Right External Iliac Artery, Percutaneous Approach (ICD-10-PCS; 2018-09-05)
PROC: B41F1ZZ Fluoroscopy of Right Lower Extremity Arteries using Low Osmolar Contrast (ICD-10-PCS; 2018-09-05)
PROC: 041K0ZL Bypass Right Femoral Artery to Popliteal Artery, Open Approach (ICD-10-PCS; principal; 2018-09-05 07:45)
DX: E11.51 Type 2 diabetes mellitus with diabetic peripheral angiopathy without gangrene (principal); N18.6 End stage renal disease; T86.12 Kidney transplant failure; F11.20 Opioid dependence, uncomplicated; I13.2 Hypertensive heart and chronic kidney disease with heart failure and with stage 5 chronic kidney disease, or end stage renal disease; I50.32 Chronic diastolic (congestive) heart failure; I48.1 Persistent atrial fibrillation; Z99.2 Dependence on renal dialysis; E11.22 Type 2 diabetes mellitus with diabetic chronic kidney disease; D63.1 Anemia in chronic kidney disease; D69.6 Thrombocytopenia, unspecified; E11.65 Type 2 diabetes mellitus with hyperglycemia; E78.5 Hyperlipidemia, unspecified; E87.6 Hypokalemia; Z79.4 Long term (current) use of insulin; I25.10 Atherosclerotic heart disease of native coronary artery without angina pectoris; I44.7 Left bundle-branch block, unspecified; J44.9 Chronic obstructive pulmonary disease, unspecified; F17.210 Nicotine dependence, cigarettes, uncomplicated; K21.9 Gastro-esophageal reflux disease without esophagitis; Z95.5 Presence of coronary angioplasty implant and graft